=== PATIENT | female | born 1955 | race Caucasian/White ===

== ENCOUNTER → 2022-03-18 10:15 | Outpatient (CLI) | payer MEDICARE, OTHER, SELFPAY ==
--- NOTE | ~2022-03-18 | DEXA_ITS ---
Bone Density Report Name: MOUNIKA LONG Age: 66 Sex: Female Ethnicity: White Date of : 1955 Indication: osteopenia; height loss; hysterectomy; rheumatoid arthritis; postmenopausal Referring Provider: RICKEY, AYLIN Study: Bone densitometry was performed. Exam Date: March 18, 2022 Accession number: [id number] Bone Density: Region BMD T-score Z-score Classification AP Spine (L1-L4) 0.808 -2.2 -0.2 Osteopenia Femoral Neck (Left) 0.660 -1.7 0.0 Osteopenia Total Hip (Left) 0.805 -1.1 0.3 Osteopenia Femoral Neck (Right) 0.777 -0.7 1.1 Normal Total Hip (Right) 0.863 -0.6 0.8 Normal Total Hip Mean 0.834 -0.9 0.6 Normal World Health Organization criteria for BMD impression classify patients as: Normal (T-score at or above -1.0), Osteopenia (T-score between -1.0 and -2.5), or Osteoporosis (T-score at or below -2.5). 10-year Fracture Risk(1): Major Osteoporotic Fracture 12% Hip Fracture 1.7% Reported Risk Factors: [place] (), Neck BMD=0.660, BMI=38.7, rheumatoid arthritis (1) FRAX(R) Version 3.08. Fracture probability calculated for an untreated patient. Fracture probability may be lower if the patient has received treatment. Previous Exams: Region Exam Age BMD T-score BMD Change BMD Change Date g/cm2 vs Baseline vs Previous AP Spine(L1-L4) 03/18/2022 66 0.808 -2.2 -0.045* -0.045* 08/05/2017 62 0.852 -1.8 Total Hip(Left) 03/18/2022 66 0.805 -1.1 -0.027* -0.027* 08/05/2017 62 0.832 -0.9 Total Hip(Right) 03/18/2022 66 0.863 -0.6 0.033* 0.033* 08/05/2017 62 0.830 -0.9 *Denotes significance at 95% confidence level, LSC for AP Spine = 0.022 g/cm2, LSC for Total Hip = 0.027 g/cm2 Clinical Information Provided by Patient: Has rheumatoid arthritis Has used the following medications: Vitamin D, Calcium, MTV Has the following medical conditions: Hysterectomy Patient maximum height was 66.0 Menopause Age: 29 No regular weight bearing exercise Drinks caffeinated beverages Onset of menses at age 12 Number of children 2 Impression: The patient has low bone mass, based on the Total Spine T-score. The patient has an estimated ten-year risk of hip fracture of 1.7% and an estimated ten-year risk of major fracture of 12%, based on the WHO FRAX algorithm. The BMD for the AP Spine(L1-L4) decreased, changing by -0.045 since the last DXA exam. The BMD for the Total Hip(
== END ==
PROVIDERS: PCP Nurse Practitioner Adult Health; Visit Provider Physician Assistant Medical
DX: M85.88 Other specified disorders of bone density and structure, other site (principal); M85.852 Other specified disorders of bone density and structure, left thigh
CPT/HCPCS: 77080

== ENCOUNTER 2022-09-01 07:33 | Day surgery (SDC) | payer MEDICARE, OTHER, SELFPAY ==
[2022-08-24 11:41] VITALS: BMI 39.0
--- NOTE | 2022-09-01 07:25 | WPDHPUPDATE1 ---
History and Physical Update Update Date/Time: 09/01/22 07:25 History and Physical has been reviewed, including an updated exam of the patient. There are NO changes in the patient's condition. Risks, benefits, and alternatives have been discussed and questions answered. Patient agrees to proceed with procedure.
[2022-09-01 08:00] VITALS: BP 145/86; PULSE 67; RESP 20; TEMP 36.6; O2SAT 98
[2022-09-01] MEDS: OFLOXACIN 0.3% OPHTH SOLN 5 ML BTL 1 DROP AFFCTD EYE (08:00)
[2022-09-01] MEDS: TETRACAINE HCL 0.5% OPHTH SOLN 4 ML BTL 1 DROP AFFCTD EYE ×3 (08:00→08:10)
--- NOTE | 2022-09-01 08:24 | P.PNAN_ITS ---
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 Patient Data Age: 67 Gender: F Height: 1.65 m Weight: 106.5 kg Allergies Allergy/AdvReac Type Severity Reaction Status Date / Time Sulfa (Sulfonamide Allergy Unknown Hives Verified 08/24/22 11:36 Antibiotics) Home Medications Medication Instructions Recorded Confirmed Type fluoxetine 40 mg capsule 40 mg PO DAILY 08/24/22 08/24/22 History folic acid 1 mg tablet 1 mg PO DAILY 08/24/22 08/24/22 History omeprazole 20 mg capsule,delayed 20 mg PO DAILY 08/24/22 08/24/22 History release oxybutynin chloride 5 mg 5 mg PO DAILY 08/24/22 08/24/22 History tablet,extended release 24 hr simvastatin 20 mg tablet 20 mg PO DAILY 08/24/22 08/24/22 History Patient hx anesthesia problems: none Family hx anesthesia problems: none Results Review: All pre-operative results and documents have been reviewed as part of the pre- operative evaluation. [facility] Past Medical History Medical History (Updated 09/01/22 @ 08:25 by Asaf Howe MD) Chronic GERD Hyperlipidemia Obesity Social History Social History Smoking status: Never smoker Second hand tobacco smoke exposure: No Alcohol intake: current Substance use: never Substance use type: does not use Living arrangements: with family Spiritual care concerns: No Anes - Eval Final PreProcedure Day of Procedure 09/01/22 08:24 Patient weight: obese Heart: regular rate and rhythm Lungs: clear to auscultation and normal air movement Airway: Mallampati scale class II Neurological: alert and oriented Last oral intake: >/= 8 hours ASA classification: II Emergent: no Anesthetic plan: proceed Anesthesia type and monitoring: monitored anesthesia care Results Review: All pre-operative results and documents have been reviewed as part of the pre- operative evaluation. Informed Consent: The patient's anesthetic plan and its attendant risks and benefits were discussed with the patient/family/POA. Questions were solicited and answers provided to the satisfaction of the patient/family/POA.
[2022-09-01] MEDS: LIDOCAINE HCL 2% JELLY 5 ML TUBE 1 APPLIC AFFCTD EYE (08:39)
[2022-09-01] MEDS: LIDOCAINE HCL 1% PF INJ 5 ML VIAL 1 ML INTRAOCULA (08:51)
[2022-09-01] MEDS: NEOMYCIN/POLYMYXIN/DEXAMETH OP OINT 3.5 GM TUBE 1 APPLIC AFFCTD EYE (08:51)
[2022-09-01] MEDS: HOME MEDICATION 1 EACH AFFCTD EYE (08:52)
[2022-09-01 09:17] VITALS: BP 144/59; PULSE 68; RESP 16; O2SAT 100
--- NOTE | 2022-09-01 11:37 | W.PM.PROC2 ---
Procedure Note - Detailed Date of Procedure 09/01/22 Pre-op Diagnosis Age Related Nuclear Cataract Right Eye Post-op Diagnosis Same Procedure Performed Cataract Extraction (by Phacoemulsification) and lntraocular Lens Implant Surgeon Iker Agosto MD Anesthesia MAC Description of Procedure The eye was anesthetized with topical 0.75% bupivacaine. After intravenous sedation and placement of monitors, the patient was prepped and draped in the usual sterile manner. A lid speculum was placed. A paracentesis was made, and preservative free 1% lidocaine was instilled in the anterior chamber. The anterior chamber was then filled with Viscoat viscoelastic. A tyesha keratome was used to create the wound. Continuous tear anterior capsulotomy was performed. The lens was hydro dissected before being removed with phacoemulsification. The remaining lenticular cortex was removed with aspiration. The capsular bag was polished and filled with viscoelastic material. An intraocular lens was chosen, inspected, irrigated and placed within the capsular bag where it was seen to be centered and stable. The viscoelastic material was aspirated. The wound was closed and found to be watertight. Ciloxan drops were placed in the eye. The speculum was removed. A Ponce shield was applied. The patient tolerated the procedure well and left the operating room in satisfactory condition. Implants See chart Complications None Condition Stable Disposition Same day
--- NOTE | 2022-09-01 11:46 | WPDANESPN ---
Anes - Prog Note Post-Op Date/Time: 09/01/22 11:46 Cardiovascular status: normal Respiratory status: normal Airway patency: baseline Mental status: baseline Post-Op hydration status: normal Vital Signs: Last Vital Signs Temp 36.6 C 09/01/22 08:00 Pulse 68 09/01/22 09:17 Resp 16 09/01/22 09:17 BP 144/59 H 09/01/22 09:17 Pulse Ox 100 09/01/22 09:17 O2 Del Method Room Air 09/01/22 09:17 Pain Score (VAS): 0 Post-procedural complaints: none Patient Feedback: Patient satisfied with anesthetic care.
== END 2022-09-01 09:33 | disposition home or self-care (01) ==
PROVIDERS: PCP Family Medicine; Visit Provider Student in an Organized Health Care Education/Training Program
PROC: (CPT 66983; principal; 2022-09-01 08:30)
DX: H25.11 Age-related nuclear cataract, right eye (principal)
CPT/HCPCS: 66984; V2521; ATORIC

== ENCOUNTER 2024-04-11 01:27 | Day surgery (SDC) | payer MEDICARE, OTHER, SELFPAY ==
[2024-03-27 13:24] VITALS: BMI 38.1
[2024-04-11 07:48] VITALS: BP 137/57; PULSE 69; RESP 18; TEMP 36.1; O2SAT 99; BMI 38.4
[2024-04-11] MEDS: LACTATED RINGERS 1,000 ML 150 ML IV CONT (07:58)
--- NOTE | 2024-04-11 08:59 | PM.IMHP ---
H&P: HPI History of Present Illness Date/Time: 04/11/24 08:59 Chief Complaint: dysphgagia Narrative: this patient has a history of Argueta's esophagus and has been complaining of intermittent dysphagia for several years. Her last colonoscopy was over 5 years ago. She does not have problems with swallowing liquids. Review of Systems Review of Systems: All systems reviewed & are unremarkable except as noted in HPI and below PMFSH Past Medical History Medical History Chronic GERD Hyperlipidemia Obesity Social History Social History Smoking status: Never smoker Second hand tobacco smoke exposure: No Alcohol intake: current Substance use: never Substance use type: does not use Living arrangements: with family Spiritual care concerns: No Meds Home Medications and Allergies Home Medications Medication Instructions Recorded Confirmed Type folic acid 1 mg tablet 1 mg PO DAILY 08/24/22 04/11/24 History simvastatin 20 mg tablet 20 mg PO DAILY 08/24/22 04/11/24 History calcium carbonate 260 mg PO DAILY 03/21/24 04/11/24 History fluoxetine 40 mg capsule (Prozac) 20 mg PO TID 03/21/24 04/11/24 History golimumab 12.5 mg/mL intravenous See Rx Instructions .Route .COMPLEX 03/21/24 04/11/24 History solution (Simponi ARIA) lactobacillus combination no.9 4 4,000 mmu cells PO DAILY 03/21/24 04/11/24 History billion cell capsule (Adult 50 Plus Probiotic) multivitamin 1 tablet PO DAILY 03/21/24 04/11/24 History omeprazole 20 mg capsule,delayed 40 mg PO DAILY 03/21/24 04/11/24 History release Allergies Allergy/AdvReac Type Severity Reaction Status Date / Time Sulfa (Sulfonamide Allergy Unknown Hives Verified 04/11/24 07:48 Antibiotics) diphenhydramine Allergy Hives Verified 04/11/24 07:48 [From Benadryl] Vital Signs Vital Signs - 24 hr 04/11/24 07:48 Temperature 97 F L Pulse Rate 69 Respiratory Rate 18 Blood Pressure 137/57 L Pulse Oximetry 99 Oxygen Delivery Room Air Assessment and Plan Assessment and plan (1) Dysphagia: Qualifiers: Dysphagia type: esophageal phase Qualified Code(s): R13.19 - Other dysphagia Code(s): R13.10 - Dysphagia, unspecified Status: Acute Plan Patient with a possible history of Argueta's esophagus and intermittent dysphagia. Schatki's ring is a diagnostic consideration. Will proceed with EGD and possible dilatation if a ring is found.
--- NOTE | 2024-04-11 09:02 | WPDANESEPPF ---
Anes - Initial Pre Proc Eval Procedure: Operation Date: 04/11/24 09:00 Proposed Procedures p Esophagogastroduodenoscopy - Edwin Limon MD Date/Time: 04/11/24 09:02 Surgeon: Edwin Limon MD Pre Op Diagnosis: Dysphagia, GERD Patient Data Age: 68 Gender: F Height: 1.65 m Weight: 104.8 kg Last Vital Signs Temp 97 F L 04/11/24 07:48 Pulse 69 04/11/24 07:48 Resp 18 04/11/24 07:48 BP 137/57 L 04/11/24 07:48 Pulse Ox 99 04/11/24 07:48 O2 Del Method Room Air 04/11/24 07:48 Allergies Allergy/AdvReac Type Severity Reaction Status Date / Time Sulfa (Sulfonamide Allergy Unknown Hives Verified 04/11/24 07:48 Antibiotics) diphenhydramine Allergy Hives Verified 04/11/24 07:48 [From Benadryl] Home Medications Medication Instructions Recorded Confirmed Type folic acid 1 mg tablet 1 mg PO DAILY 08/24/22 04/11/24 History simvastatin 20 mg tablet 20 mg PO DAILY 08/24/22 04/11/24 History calcium carbonate 260 mg PO DAILY 03/21/24 04/11/24 History fluoxetine 40 mg capsule (Prozac) 20 mg PO TID 03/21/24 04/11/24 History golimumab 12.5 mg/mL intravenous See Rx Instructions .Route .COMPLEX 03/21/24 04/11/24 History solution (Simponi ARIA) lactobacillus combination no.9 4 4,000 mmu cells PO DAILY 03/21/24 04/11/24 History billion cell capsule (Adult 50 Plus Probiotic) multivitamin 1 tablet PO DAILY 03/21/24 04/11/24 History omeprazole 20 mg capsule,delayed 40 mg PO DAILY 03/21/24 04/11/24 History release Patient hx anesthesia problems: none Family hx anesthesia problems: none Results Review: All pre-operative results and documents have been reviewed as part of the pre-operative evaluation. [facility] Past Medical History Medical History Chronic GERD Hyperlipidemia Obesity Social History Social History Smoking status: Never smoker Second hand tobacco smoke exposure: No Alcohol intake: current Substance use: never Substance use type: does not use Living arrangements: with family Spiritual care concerns: No Anes - Eval Final PreProcedure Day of Procedure 04/11/24 09:02 Patient weight: obese Heart: regular rate and rhythm Lungs: clear to auscultation Airway: Mallampati scale class II Neurological: alert and oriented Last oral intake: >/= 8 hours ASA classification: III Emergent: no Anesthetic plan: proceed Anesthesia type and monitoring: general GIVS and standard monitoring Results Review: All pre-operative results and documents have been reviewed as part of the pre-operative evaluation. Informed Consent: The patient's anesthetic plan and its attendant risks and benefits were discussed with the patient/family/POA. Questions were solicited and answers provided to the satisfaction of the patient/family/POA.
[2024-04-11] MEDS: SIMETHICONE ORAL SUSPENSION 20 MG/0.3 ML 30 ML BOTTLE 0.6 ML IRRIGATION (09:15)
[2024-04-11 09:26] VITALS: BP 132/78; PULSE 63; RESP 16; O2SAT 99
[2024-04-11 09:36] VITALS: BP 130/72; PULSE 61; RESP 18; O2SAT 99
[2024-04-11 09:44] VITALS: BP 120/62; PULSE 61; RESP 18; O2SAT 100
[2024-04-11 09:49] VITALS: BP 125/75; PULSE 57; RESP 19; O2SAT 100
== END 2024-04-11 09:56 | disposition home or self-care (01) ==
PROVIDERS: PCP Physician Assistant; Referring Provider Nurse Practitioner; Visit Provider Internal Medicine Gastroenterology
PROC: 0DJ08ZZ Inspection of Upper Intestinal Tract, Via Natural or Artificial Opening Endoscopic (ICD-10-PCS; CPT 43235; principal; 2024-04-11 09:00)
DX: K21.00 Gastro-esophageal reflux disease with esophagitis, without bleeding (principal); K29.50 Unspecified chronic gastritis without bleeding; E78.5 Hyperlipidemia, unspecified; E66.9 Obesity, unspecified; Z68.38 Body mass index [BMI] 38.0-38.9, adult
CPT/HCPCS: 43239; 88305; J2003; J2704; J7120

== ENCOUNTER 2024-09-17 12:30 | Emergency (ER) | payer MEDICARE, OTHER, SELFPAY ==
--- NOTE | ~2024-09-17 | CT_ITS ---
EXAMINATION: CT abdomen pelvis w con DATE: 09/17/2024 14:54 INDICATION: Abdominal pain TECHNIQUE: Computed tomography (CT) of the abdomen and pelvis was performed with 100 mL Omnipaque-350 intravenous contrast. Automated exposure control and iterative reconstruction technique were employe d. The dose-length product was 905.17 mGy-cm. COMPARISON: None FINDINGS: Mild atelectasis at the periphery of the bilateral lower lungs. Heart size is normal. Aortic valve ca lcification. No pericardial or pleural effusion. Small sliding-type hiatal hernia. Multiple splenic c alcification consistent with old granulomatous disease. Cholecystectomy clips the gallbladder fossa. Liver, pancreas and bilateral adrenal glands are normal. Multiple bilateral renal parenchymal and par apelvic cysts measuring up to 2.5 cm. Bladder is normal. The uterus is not identified and has likely been surgically resected. There is mild colonic diverticulosis with a sigmoid predominance. There is no adjacent inflammatory change to suggest diverticulitis. Small bowel and appendix are normal. No f ree intraperitoneal gas or fluid. No pathologically enlarged abdominal or pelvic lymphadenopathy. Mi ld to moderate lumbar spondylosis. IMPRESSION: 1. No acute intra-abdominal/pelvic process. 2. Small sliding-type hiatal hernia. 3. Mild diverticulosis. Reviewed, dictated and finalized at location B.
--- NOTE | ~2024-09-17 | XR_ITS ---
EXAMINATION: XR chest 2V Exam Date/Time: 09/17/2024 14:59 CDT HISTORY: upper abdominal pain Comparison: 02/18/2018. RESULT: Lines, tubes, and devices: Cholecystectomy clips. Lungs and pleura: Clear. Cardiomediastinal silhouette: Stable. Other: No acute osseous or upper abdominal finding. IMPRESSION: No acute cardiopulmonary process. Reviewed, dictated and finalized at location K.
--- NOTE | 2024-09-17 12:33 | ECG_ITS ---
Test Date: 2024-09-17 12:56:39 Measurements Intervals [place] Rate: 76 P: 17 ME: 146 QRS: 17 QRSD: 107 T: 34 QT: 379 QTc: 428 Interpretive Statements SINUS RHYTHM No previous ECG available for comparison Electronically Signed On 09-18-2024 15:32:01 CDT by Eliza Wilkerson M.D.
--- NOTE | 2024-09-17 12:35 | ED.ABDPAIN ---
HPI - Abdominal Pain General Chief Complaint: Abdominal Pain <Melissa Emery APRN - Last Filed: 09/17/24 12:36> Stated Complaint: abdominal pain <Melissa Emery APRN - Last Filed: 09/17/24 12:36> Time Seen by Provider: 09/17/24 12:30 <Melissa Emery APRN - Last Filed: 09/17/24 12:36> Focused HPI: Patient is a 69-year-old female who presents to the ER with left upper quadrant pain that radiates across her abdomen. Patient reports the pain started yesterday. She also endorses nausea and vomiting. Patient denies shortness of breath, chest pain, back pain, urinary symptoms. She reports her only history is rheumatoid arthritis. GENERAL: Well-appearing, well-nourished, and in no acute distress. HEAD: Normocephalic, atraumatic. CHEST: Clear to auscultation. ?No respiratory distress. HEART: Regular rate and rhythm.? NEURO: ?Alert and oriented x3. Patient screened in triage and initial orders placed.? ?Additional care and disposition to be based upon?diagnostic testing and treatment. <Melissa Emery APRN - Last Filed: 09/17/24 12:36> History of Present Illness HPI narrative: I agree with the above HPI 69-year-old female presents emergency department for evaluation for left upper quadrant abdominal pain. A history of GERD does take omeprazole. Patient is also on methotrexate for rheumatoid arthritis. <Art Martinez MD - Last Filed: 09/17/24 21:27> Related Data Home Medications: Home Medications ?Medication ?Instructions ?Recorded ?Confirmed ?Last Taken ?Type folic acid 1 mg tablet 1 mg PO DAILY 08/24/22 04/11/24 1 Day Ago History ~04/10/24 simvastatin 20 mg tablet 20 mg PO DAILY 08/24/22 04/11/24 1 Day Ago History ~04/10/24 calcium carbonate 260 mg PO DAILY 03/21/24 04/11/24 1 Day Ago History ~04/10/24 fluoxetine 40 mg capsule (Prozac) 20 mg PO TID 03/21/24 04/11/24 1 Day Ago History ~04/10/24 golimumab 12.5 mg/mL intravenous See Rx Instructions .Route .COMPLEX 03/21/24 04/11/24 1 Day Ago History solution (Simponi ARIA) ~04/10/24 lactobacillus combination no.9 4 4,000 mmu cells PO DAILY 03/21/24 04/11/24 1 Day Ago History billion cell capsule (Adult 50 ~04/10/24 Plus Probiotic) multivitamin 1 tablet PO DAILY 03/21/24 04/11/24 1 Day Ago History ~04/10/24 omeprazole 20 mg capsule,delayed 40 mg PO DAILY 03/21/24 04/11/24 1 Day Ago History release ~04/10/24 <Melissa Emery APRN - Last Filed: 09/17/24 12:36> Allergies/Adverse Reactions: Allergies Allergy/AdvReac Type Severity Reaction Status Date / Time Sulfa (Sulfonamide Allergy Unknown Hives Verified 09/17/24 12:54 Antibiotics) diphenhydramine (From Allergy Hives Verified 09/17/24 12:54 Benadryl) <eMlissa Emery APRN - Last Filed: 09/17/24 12:36> Review of Systems Review of Systems: All systems reviewed & are unremarkable except as noted in HPI and below <Art Martinez MD - Last Filed: 09/17/24 21:27> PMFSH Past Medical History Medical History: Medical History Chronic GERD Hyperlipidemia Obesity <Melissa Emery APRN - Last Filed: 09/17/24 12:36> Social History Social History: Social History Smoking status: Never smoker Second hand tobacco smoke exposure: No Alcohol intake: current Substance use: never Substance use type: does not use Living arrangements: with family Spiritual care concerns: No <Melissa Emery APRN - Last Filed: 09/17/24 12:36> Exam Narrative: APPEARANCE: Well appearing, no pain, no distress, well-nourished. HEAD: normocephalic, atraumatic. EYES: PERRLA/EOMI, conjunctivae clear. NOSE: Normal no drainage EARS:TMS clear with good light reflex. THROAT: Pharynx clear, no exudate. NECK: Supple. No adenopathy, no masses. RESPIRATORY: Airway patent, respirations nonlabored. Clear to auscultation bilaterally, no rales, rhonchi, wheezing. CARDIOVASCULAR: Regular rate and rhythm without murmurs rubs or gallops. ABDOMINAL: Soft, nontender, nondistended, normal bowel sounds MUSCULOSKELETAL: Moves all extremities. Strength/ROM intact, No edema, No calf tenderness. NEURO: Alert. Cranial nerves II through XII intact. Good gait. Good coordination SKIN: Warm, dry. Normal Color <Art Martinez MD - Last Filed: 09/17/24 21:27> Course Vital Signs Vital signs: Vital Signs Temperature 97.8 F 09/17/24 12:38 Pulse Rate 89 09/17/24 12:38 Respiratory Rate 16 09/17/24 12:38 Blood Pressure 135/68 09/17/24 12:38 Pulse Oximetry 98 09/17/24 12:38 Oxygen Delivery Room Air 09/17/24 12:38 Temperature 97.8 F 09/17/24 12:38 Pulse Rate 84 09/17/24 18:09 Respiratory Rate 16 09/17/24 18:09 Blood Pressure 134/60 09/17/24 18:09 Pulse Oximetry 98 09/17/24 18:09 Oxygen Delivery Room Air 09/17/24 12:38 <Melissa Emery APRN - Last Filed: 09/17/24 12:36> Vital Signs Temperature 97.8 F 09/17/24 12:38 Pulse Rate 89 09/17/24 12:38 Respiratory Rate 16 09/17/24 12:38 Blood Pressure 135/68 09/17/24 12:38 Pulse Oximetry 98 09/17/24 12:38 Oxygen Delivery Room Air 09/17/24 12:38 Temperature 97.8 F 09/17/24 12:38 Pulse Rate 84 09/17/24 18:09 Respiratory Rate 16 09/17/24 18:09 Blood Pressure 134/60 09/17/24 18:09 Pulse Oximetry 98 09/17/24 18:09 Oxygen Delivery Room Air 09/17/24 12:38 <Art Martinez MD - Last Filed: 09/17/24 21:27> MDM - Abdominal Pain MDM Narrative Medical decision making narrative: 69-year-old female presents emergency department for evaluation for left upper quadrant abdominal pain. Patient is currently afebrile but does have a leukocytosis of 14.5 a hemoglobin of 13.7. Patient has an INR of 1.0. Patient does have leukocyte esterase positive urine with some red blood cells and some white blood cells, patient denies any pain with urination. Chest x-ray showed no acute cardiopulmonary abnormality. Abdominal CT showed no acute intracranial abdominal pelvic process. Sliding type hiatal hernia and some mild diverticulosis. Patient was treated with famotidine, Protonix and a GI cocktail. On re-evaluation patient states she does feel improved. <Art Martinez MD - Last Filed: 09/17/24 21:27> Differential Diagnosis Differential diagnosis: Likely abdominal pain, acute appendicitis, constipation, diverticulitis, gastroenteritis and small bowel obstruction <Art Martinez MD - Last Filed: 09/17/24 21:27> Lab Data Attestation: I reviewed the patient's lab results. <Art Martinez MD - Last Filed: 09/17/24 21:27> Result diagrams: 09/17/24 13:18 09/17/24 16:03 <Melissa Emery APRN - Last Filed: 09/17/24 12:36> Labs: Lab Results 09/17/24 09/17/24 09/17/24 Range/Units 13:18 13:26 14:36 WBC 14.5 H (4.5-10.0) K/mm3 RBC 4.21 (4.2-5.4) M/mm3 Hgb 13.7 (12.0-15.0) g/dL Hct 40.8 (37.0-47.0) % MCV 96.9 (80-100) fl MCH 32.5 (26-34) pg MCHC 33.6 (32-36) g/dl RDW 13.0 (11.5-14.5) % Plt Count 174 (150-375) k/mm3 MPV 10.6 H (7.4-10.4) fl Immature Gran % (Auto) 0.3 (0-0.5) % Neut % (Auto) 78.1 H (45.5-73.1) % Lymph % (Auto) 12.2 L (18.3-44.2) % [place] % (Auto) 8.6 H (2.6-8.5) % Eos % (Auto) 0.5 (0-4.4) % Baso % (Auto) 0.3 (0.2-1.2) % Lymph # (Auto) 1.76 (0.9-3.2) K/mm3 [place] # (Auto) 1.2 H (0.1-0.6) K/mm3 Eos # (Auto) 0.1 (0-0.3) K/mm3 Baso # (Auto) 0.1 (0.0-0.1) K/mm3 Abs Immat Gran (auto) 0.05 H (0.00-0.031) K/mm3 Absolute Neuts (auto) 11.3 H (1.3-6.7) K/mm3 Absolute Nucleated RBC 0.000 (0.0-0.012) K/mm3 Nucleated RBC % 0.0 (0.0-0.2) % PT 13.2 (11.1-14.7) Seconds INR 1.0 APTT 23.9 (22.3-36.8) Seconds Sodium (137-145) mmol/L Potassium (3.4-5.0) mmol/L Chloride (98-107) mmol/L Carbon Dioxide (22-30) mmol/L Anion Gap (4-12) mmol/L BUN (7-17) mg/dL Creatinine 0.70 (0.7-1.2) mg/dL Estim Creat Clear Calc 74 ml/min Estimated GFR > 60 (59 - ) Glucose (65-110) mg/dL Lactic Acid (0.7-2.0) mmol/L Calcium (8.4-10.2) mg/dL Total Bilirubin (0.2-1.3) mg/dL AST (14-36) U/L ALT (6-35) U/L Alkaline Phosphatase (38-126) U/L Troponin I (0.000-0.034) ng/mL Total Protein (6.3-8.2) g/dL Albumin (3.5-5.1) g/dL Lipase (23-300) U/L Urine Color Dark yellow (Yellow) Urine Appearance Clear (Clear) Urine pH 5.5 (5.0-9.0) Ur Specific [place] 1.025 (1.001-1.035) Urine Protein Trace (Negative) mg/dL Urine Glucose (UA) Negative (Negative) mg/dL Urine Ketones Trace H (Negative) mg/dL Ur Blood (Man) 1+ H (Negative) Urine Nitrate Negative (Negative) Urine Bilirubin Negative (Negative) Urine Urobilinogen 1.0 (<2.0) mg/dL Leukocyte Esterase Rfl 1+ H (Negative) ROGER/UL Urine RBC 11-20 H (0-2) /hpf Urine WBC 11-20 H (0-3) /hpf Ur Squamous Epith Cells Occasional (Few) /hpf Urine Bacteria None seen /hpf Urine Casts 0-2 09/17/24 09/17/24 Range/Units 16:03 16:04 WBC (4.5-10.0) K/mm3 RBC (4.2-5.4) M/mm3 Hgb (12.0-15.0) g/dL Hct (37.0-47.0) % MCV (80-100) fl MCH (26-34) pg MCHC (32-36) g/dl RDW (11.5-14.5) % Plt Count (150-375) k/mm3 MPV (7.4-10.4) fl Immature Gran % (Auto) (0-0.5) % Neut % (Auto) (45.5-73.1) % Lymph % (Auto) (18.3-44.2) % [place] % (Auto) (2.6-8.5) % Eos % (Auto) (0-4.4) % Baso % (Auto) (0.2-1.2) % Lymph # (Auto) (0.9-3.2) K/mm3 [place] # (Auto) (0.1-0.6) K/mm3 Eos # (Auto) (0-0.3) K/mm3 Baso # (Auto) (0.0-0.1) K/mm3 Abs Immat Gran (auto) (0.00-0.031) K/mm3 Absolute Neuts (auto) (1.3-6.7) K/mm3 Absolute Nucleated RBC (0.0-0.012) K/mm3 Nucleated RBC % (0.0-0.2) % PT (11.1-14.7) Seconds INR APTT (22.3-36.8) Seconds Sodium 135 L (137-145) mmol/L Potassium 4.1 (3.4-5.0) mmol/L Chloride 102 (98-107) mmol/L Carbon Dioxide 27 (22-30) mmol/L Anion Gap 6 (4-12) mmol/L BUN 9 (7-17) mg/dL Creatinine 0.57 L (0.7-1.2) mg/dL Estim Creat Clear Calc 90 ml/min Estimated GFR > 60 (59 - ) Glucose 105 (65-110) mg/dL Lactic Acid 1.3 (0.7-2.0) mmol/L Calcium 9.4 (8.4-10.2) mg/dL Total Bilirubin 1.9 H (0.2-1.3) mg/dL AST 24 (14-36) U/L ALT 21 (6-35) U/L Alkaline Phosphatase 90 (38-126) U/L Troponin I < 0.012 (0.000-0.034) ng/mL Total Protein 8.0 (6.3-8.2) g/dL Albumin 4.2 (3.5-5.1) g/dL Lipase 41 (23-300) U/L Urine Color (Yellow) Urine Appearance (Clear) Urine pH (5.0-9.0) Ur Specific [place] (1.001-1.035) Urine Protein (Negative) mg/dL Urine Glucose (UA) (Negative) mg/dL Urine Ketones (Negative) mg/dL Ur Blood (Man) (Negative) Urine Nitrate (Negative) Urine Bilirubin (Negative) Urine Urobilinogen (<2.0) mg/dL Leukocyte Esterase Rfl (Negative) ROGER/UL Urine RBC (0-2) /hpf Urine WBC (0-3) /hpf Ur Squamous Epith Cells (Few) /hpf Urine Bacteria /hpf Urine Casts <Melissa Emery, LABORATORY CHEMICAL ASSISTANT - Last Filed: 09/17/24 12:36> Lab Results 09/17/24 09/17/24 09/17/24 Range/Units 13:18 13:26 14:36 WBC 14.5 H (4.5-10.0) K/mm3 RBC 4.21 (4.2-5.4) M/mm3 Hgb 13.7 (12.0-15.0) g/dL Hct 40.8 (37.0-47.0) % MCV 96.9 (80-100) fl MCH 32.5 (26-34) pg MCHC 33.6 (32-36) g/dl RDW 13.0 (11.5-14.5) % Plt Count 174 (150-375) k/mm3 MPV 10.6 H (7.4-10.4) fl Immature Gran % (Auto) 0.3 (0-0.5) % Neut % (Auto) 78.1 H (45.5-73.1) % Lymph % (Auto) 12.2 L (18.3-44.2) % [place] % (Auto) 8.6 H (2.6-8.5) % Eos % (Auto) 0.5 (0-4.4) % Baso % (Auto) 0.3 (0.2-1.2) % Lymph # (Auto) 1.76 (0.9-3.2) K/mm3 [place] # (Auto) 1.2 H (0.1-0.6) K/mm3 Eos # (Auto) 0.1 (0-0.3) K/mm3 Baso # (Auto) 0.1 (0.0-0.1) K/mm3 Abs Immat Gran (auto) 0.05 H (0.00-0.031) K/mm3 Absolute Neuts (auto) 11.3 H (1.3-6.7) K/mm3 Absolute Nucleated RBC 0.000 (0.0-0.012) K/mm3 Nucleated RBC % 0.0 (0.0-0.2) % PT 13.2 (11.1-14.7) Seconds INR 1.0 APTT 23.9 (22.3-36.8) Seconds Sodium (137-145) mmol/L Potassium (3.4-5.0) mmol/L Chloride (98-107) mmol/L Carbon Dioxide (22-30) mmol/L Anion Gap (4-12) mmol/L BUN (7-17) mg/dL Creatinine 0.70 (0.7-1.2) mg/dL Estim Creat Clear Calc 74 ml/min Estimated GFR > 60 (59 - ) Glucose (65-110) mg/dL Lactic Acid (0.7-2.0) mmol/L Calcium (8.4-10.2) mg/dL Total Bilirubin (0.2-1.3) mg/dL AST (14-36) U/L ALT (6-35) U/L Alkaline Phosphatase (38-126) U/L Troponin I (0.000-0.034) ng/mL Total Protein (6.3-8.2) g/dL Albumin (3.5-5.1) g/dL Lipase (23-300) U/L Urine Color Dark yellow (Yellow) Urine Appearance Clear (Clear) Urine pH 5.5 (5.0-9.0) Ur Specific [place] 1.025 (1.001-1.035) Urine Protein Trace (Negative) mg/dL Urine Glucose (UA) Negative (Negative) mg/dL Urine Ketones Trace H (Negative) mg/dL Ur Blood (Man) 1+ H (Negative) Urine Nitrate Negative (Negative) Urine Bilirubin Negative (Negative) Urine Urobilinogen 1.0 (<2.0) mg/dL Leukocyte Esterase Rfl 1+ H (Negative) ROGER/UL Urine RBC 11-20 H (0-2) /hpf Urine WBC 11-20 H (0-3) /hpf Ur Squamous Epith Cells Occasional (Few) /hpf Urine Bacteria None seen /hpf Urine Casts 0-2 03/24/25 03/24/25 Range/Units 16:03 16:04 WBC (4.5-10.0) K/mm3 RBC (4.2-5.4) M/mm3 Hgb (12.0-15.0) g/dL Hct (37.0-47.0) % MCV (80-100) fl MCH (26-34) pg MCHC (32-36) g/dl RDW (11.5-14.5) % Plt Count (150-375) k/mm3 MPV (7.4-10.4) fl Immature Gran % (Auto) (0-0.5) % Neut % (Auto) (45.5-73.1) % Lymph % (Auto) (18.3-44.2) % [place] % (Auto) (2.6-8.5) % Eos % (Auto) (0-4.4) % Baso % (Auto) (0.2-1.2) % Lymph # (Auto) (0.9-3.2) K/mm3 [place] # (Auto) (0.1-0.6) K/mm3 Eos # (Auto) (0-0.3) K/mm3 Baso # (Auto) (0.0-0.1) K/mm3 Abs Immat Gran (auto) (0.00-0.031) K/mm3 Absolute Neuts (auto) (1.3-6.7) K/mm3 Absolute Nucleated RBC (0.0-0.012) K/mm3 Nucleated RBC % (0.0-0.2) % PT (11.1-14.7) Seconds INR APTT (22.3-36.8) Seconds Sodium 135 L (137-145) mmol/L Potassium 4.1 (3.4-5.0) mmol/L Chloride 102 (98-107) mmol/L Carbon Dioxide 27 (22-30) mmol/L Anion Gap 6 (4-12) mmol/L BUN 9 (7-17) mg/dL Creatinine 0.57 L (0.7-1.2) mg/dL Estim Creat Clear Calc 90 ml/min Estimated GFR > 60 (59 - ) Glucose 105 (65-110) mg/dL Lactic Acid 1.3 (0.7-2.0) mmol/L Calcium 9.4 (8.4-10.2) mg/dL Total Bilirubin 1.9 H (0.2-1.3) mg/dL AST 24 (14-36) U/L ALT 21 (6-35) U/L Alkaline Phosphatase 90 (38-126) U/L Troponin I < 0.012 (0.000-0.034) ng/mL Total Protein 8.0 (6.3-8.2) g/dL Albumin 4.2 (3.5-5.1) g/dL Lipase 41 (23-300) U/L Urine Color (Yellow) Urine Appearance (Clear) Urine pH (5.0-9.0) Ur Specific [place] (1.001-1.035) Urine Protein (Negative) mg/dL Urine Glucose (UA) (Negative) mg/dL Urine Ketones (Negative) mg/dL Ur Blood (Man) (Negative) Urine Nitrate (Negative) Urine Bilirubin (Negative) Urine Urobilinogen (<2.0) mg/dL Leukocyte Esterase Rfl (Negative) ROGER/UL Urine RBC (0-2) /hpf Urine WBC (0-3) /hpf Ur Squamous Epith Cells (Few) /hpf Urine Bacteria /hpf Urine Casts <Art Martinez MD - Last Filed: 09/17/24 21:27> Imaging Data Radiologist's impression: ITS Impressions Abdomen/Pelvis CT 09/17/24 14:58 IMPRESSION: 1. No acute intra-abdominal/pelvic process. 2. Small sliding-type hiatal hernia. 3. Mild diverticulosis. Chest X-Ray 09/17/24 15:13 IMPRESSION: No acute cardiopulmonary process. <Melissa Emery APRN - Last Filed: 09/17/24 12:36> ITS Impressions Abdomen/Pelvis CT 09/17/24 14:58 IMPRESSION: 1. No acute intra-abdominal/pelvic process. 2. Small sliding-type hiatal hernia. 3. Mild diverticulosis. Chest X-Ray 09/17/24 15:13 IMPRESSION: No acute cardiopulmonary process. <Art Martinez MD - Last Filed: 09/17/24 21:27> Discharge Plan Discharge Clinical Impression: Acute upper abdominal pain <Melissa Emery APRN - Last Filed: 09/17/24 12:36> Patient Disposition: Home, Self-Care <Melissa Emery APRN - Last Filed: 09/17/24 12:36> Condition: Stable <Melissa Emery APRN - Last Filed: 09/17/24 12:36> Instructions: Antibiotic Form, Gastritis (DC), Diet for Stomach Ulcers and Gastritis (ED) <Melissa Emery APRN - Last Filed: 09/17/24 12:36> Additional Instructions: Stop taking the omeprazole for 4 weeks and switch to pantoprazole. Follow a bland diet. Continue to avoid alcohol and NSAIDs. Have close follow-up with GI. If you have any worsening symptoms then please call or return to the emergency department. <Melissa Emery APRN - Last Filed: 09/17/24 12:36> Patient Language: Setswana <Melissa Emery APRN - Last Filed: 09/17/24 12:36> Prescriptions: New pantoprazole 40 mg tablet,delayed release (DR/EC) 40 mg PO HS 28 Days Qty: 28 0RF Held omeprazole 20 mg capsule,delayed release(DR/EC) 40 mg PO DAILY Hold Instructions: Resume on 10/08/24. No Action calcium carbonate 260 mg calcium (648 mg) tablet 260 mg PO DAILY Simponi ARIA 12.5 mg/mL solution See Rx Instructions .ROUTE .COMPLEX Rx Instructions: 12.5 intravenously every 8 weeks multivitamin Tablet 1 tablet PO DAILY Adult 50 Plus Probiotic 4 billion cell capsule 4,000 mmu cells PO DAILY Rx Instructions: administer with a meal simvastatin 20 mg tablet 20 mg PO DAILY folic acid 1 mg tablet 1 mg PO DAILY fluoxetine [Prozac] 40 mg capsule 20 mg PO TID <Melissa Emery, WINNIE - Last Filed: 09/17/24 12:36> Follow-up/Referrals: Valentino,DEONNA Novak [Primary Care Provider] - Edwin Limon MD [Physician] - <Melissa Emery, WINNIE - Last Filed: 09/17/24 12:36>
[2024-09-17 12:38] VITALS: BP 135/68; PULSE 89; RESP 16; TEMP 36.6; O2SAT 98
[2024-09-17] MEDS: ONDANSETRON HCL ODT 4 MG TABLET PO (12:53)
[2024-09-17 13:23] LABS: Basophils Absolute Auto 0.1 K/mm3 (0.0-0.1); Basophils Percent Auto 0.3 % (0.2-1.2); Eosinophils Absolute Auto 0.1 K/mm3 (0-0.3); Eosinophils Percent Auto 0.5 % (0-4.4); Hematocrit 40.8 % (37.0-47.0); Hemoglobin 13.7 g/dL (12.0-15.0); Immature Granulocyte Absolute 0.05 K/mm3 (0.00-0.031); Immature Granulocyte Percent A 0.3 % (0-0.5); Lymphocytes Absolute Auto 1.76 K/mm3 (0.9-3.2); Lymphocytes Percent Auto 12.2 % (18.3-44.2); Mean Corpuscular HGB Conc 33.6 g/dl (32-36); Mean Corpuscular Hemoglobin 32.5 pg (26-34); Mean Corpuscular Volume 96.9 fl (80-100); Mean Platelet Volume 10.6 fl (7.4-10.4); Monocytes Absolute Auto 1.2 K/mm3 (0.1-0.6); Monocytes Percent Auto 8.6 % (2.6-8.5); Neutrophils Absolute Auto 11.3 K/mm3 (1.3-6.7); Neutrophils Percent Auto 78.1 % (45.5-73.1); Platelet Count Result 174 k/mm3 (150-375); Red Blood Count 4.21 M/mm3 (4.2-5.4); White Blood Count 14.5 K/mm3 (4.5-10.0)
[2024-09-17 13:37] LABS: Prothrombin Time 13.2 Seconds (11.1-14.7)
[2024-09-17 13:37] LABS: Add Urine Microscopic? YES; Appearance Urine Clear (Clear); Bacteria Urine None Seen /hpf; Bilirubin Urine Negative (Negative); Blood Urine 1+ (Negative); Color Urine Dark Yellow (Yellow); Glucose Urine UA Negative (Negative); Ketones Urine Trace mg/dL (Negative); Leukocyte Esterase Ur 1+ LEU/UL (Negative); Nitrate Urine Negative (Negative); Non Pathogenic Casts 0-2; Protein Urine Trace mg/dL (Negative); Specific Grav Ur 1.025 (1.001-1.035); Squamous Epithelial Cell Urine Occasional /hpf (Few); pH Urine 5.5 (5.0-9.0)
[2024-09-17 13:38] LABS: Partial Thromboplastin Time 23.9 Seconds (22.3-36.8)
--- OUTSIDE RECORDS SUMMARY | 2024-09-17 14:08 | XMS_ITS | Encounter Summary ---
Author Organization [facility] Address [address] [place] [address] Care Team Providers Care Traveling Secretary Name Role Phone Mimi Verma MD Primary Care Provider [phone] Encounter Details Date Type Department Care Team (Late st Contact Info) Description 08/10/2006 Inpatient Historical [facility] Jay Glover MD [address] [place] [address] Ayo Steele MD [address] [place] [address] Other Wrist Sprain and Strain (Primary Dx) Social History Tobacco Use Types Packs/Day Years Used Date Smoking Tobacco: Never Assessed Comments Unknown Sex and Gender Information Value Date Recorded Sex Assigned at Not on file Legal Sex Female 5:25 AM [employer] Gender Identity Not on file Sexual Orientation Not on file documented as of this encounter Plan of Treatment Not on file documented as of this encounter Visit Diagnoses Diagnosis Other wrist sprain and strain- Primary documented in this encounter Care Teams Traveling Secretary Relationship Specialty Start Date End Date Mimi Vemra MD [address] [place] [address] PCP - General 06/13/15 documented as of this encounter
--- OUTSIDE RECORDS SUMMARY | 2024-09-17 14:09 | XMS_ITS | Referral Summary ---
Author Organization [facility] [address] Address [address] [place] [address] Phone Care Team Providers Care Grinder Machine Setter Name Role Phone Allen Carrasco MD Unavailable [phone] Tello Avelar Primary Care Provider + Encounters Date Type Department Care Team Description 07/26/2024 Orders Only [facility] [address] [place] [phone] Ange Dempsey PA Osteopenia of multiple sites (Primary Dx) 07/26/2024 Telephone [facility] [address] [place] [phone] Nanette Bocanegra 07/19/2024 10:30 AM PIG CASTING MACHINE OPERATOR Office Visit [facility] [address] [place] [phone] Ange Dempsey PA Seropositive rheumatoid arthritis of multiple sites (HCC) (Primary Dx); High risk medications (not anticoagulants) long-term use; Osteopenia of multiple sites from Last 3 Months Allergies Active Allergy Reactions Criticality Noted Date Comments Diphenhydramine Hcl Hives High 10/20/2018 Reaction: hives, , 10/20/18 pt denies allergy to diphenhydramine. Sulfa (Sulfonamide Antibiotics) Hives High Reaction: hives, , Sulfanilamide Medications multivit-minera ls-ferrous fum (MULTI VITAMIN) 9 mg iron/15 mL liquid take 1 by Oral route every day 0 0 03/19/2013 Active omega 0-qoc-lsx-fish oil (FISH OIL) 100-160-1,000 mg capsule take 1 Capsule by Oral route every day 0 0 03/19/2013 Active psyllium (METAMUCIL) 0.52 gram capsule 0 0 10/22/2016 Active calcium carbonate-vitam in D3 (CALCIUM 600 + D,3,) 1500 mg (600 mg elemental) -400 units per tablet take one tab by mouth BID 60 0 01/19/2012 Active multivitamin tablet tablet take 1 tablet by oral route every day with food 30 0 01/19/2012 Active cholecalciferol (VITAMIN D3) 2,000 unit capsule take 1 Capsule by Oral route every day 30 0 01/21/2012 Active simvastatin (ZOCOR) 20 mg tablet Take 20 mg by mouth nightly. Active FLUoxetine (PROzac) 40 mg capsule Take 40 mg by mouth daily Active golimumab (SIMPONI ARIA) 12.5 mg/mL solutionIndicat ions:Rheumatoid Arthritis 2mg/kg IV infused over 30 minutes at weeks 0 and 4, then x7bsdzk 02/08/2019 Active omeprazole (PriLOSEC) 20 mg capsule Take 20 mg by mouth daily Active diclofenac DR (VOLTAREN) 75 mg EC tablet Take 1 tablet (75 mg total) by mouth 2 (two) times a day As needed for pain 60 tablet 2 05/27/2022 Active hydrOXYzine (ATARAX) 50 mg tablet Take 1 tablet (50 mg total) by mouth every 8 (eight) hours as needed 01/05/2024 Active folic acid (FOLVITE) 1 mg tablet TAKE 1 TABLET(1000 MCG) BY MOUTH DAILY 90 tablet 1 07/19/2024 Active methotrexate 2.5 mg tabletIndicatio ns:Rheumatoid Arthritis TAKE 6 TABLETS BY MOUTH EVERY WEEK 72 tablet 1 07/19/2024 Active Active Problems Problem Noted Date Diagnosed Date Urticaria 01/19/2024 Assessment & Plan (01/19/2024 3:08 PM CDT): Has urticaria on face today, and she reports also having similar rashes on neck, arms, and torso over the past weeks. She reports a frequent itching sensation all over. No change in meds, diet, or other exposures prior to onset of these rashes. Was prescribed antihistamines per ER, then a steroid script was given by PCP yesterday. She has been using zyrtec daily, has not started prednisone yet. I advised her to go ahead and start the prednisone and take as directed. Continue zyrtec and could increase to BID. Recommend she try to get in with derm and/or mexican food cook if urticaria persists. I do not think the rash has anything to do with her mtx/simponi aria so may keep infusion as scheduled tomorrow. She also has some erythema surrounding a shallow skin lac she got the other day when using a weedeater. Has been using neosporin. I suspect she might be reacting to the neosporin so advised to switch to polysporin instead. Rash and nonspecific skin eruption 04/13/2019 Assessment & Plan (05/15/2019 5:21 PM PIG CASTING MACHINE OPERATOR): Improved with time/valtrex. Possible shingles. I do not think the rash represented an allergic reaction to Simponi so ok to proceed with infusions. Discussed Shingrix and would go ahead and recommend doing this. Assessment & Plan (04/13/2019 4:37 PM CDT): Erythematous nodules to upper chest, anterior R shoulder, and posterior neck that started 2 days ago. She had her second infusion of Simponi Aria 2 days prior to onset of rash. Based on appearance and distribution of lesions I do not feel that they represent an allergic reaction to the infusion. They appear to be bites/possibly infectious etiology. Consider shingles though do not have typical vesicular appearance. Mildly itchy/tender. Will still go ahead and treat with valtrex 1gm TID x 7 days. Asked to give update in about a week. To derm if not improving. Abnormal mammogram of left breast 10/20/2018 Osteopenia of multiple sites 07/21/2017 Overview (05/27/2022): Osteopenia -1.8 spine in 2018 BMD 12/27/19: lumbar spine -1.6, hip -1.2 FRAX 6.9, 0.1 BMD 03/18: lumbar spine -2.2, L femoral neck -1.7, R femoral neck -0.7. FRAX 12% and 1.7% Assessment & Plan (07/19/2024 12:46 PM PIG CASTING MACHINE OPERATOR): BMD 12/27/19: lumbar spine -1.6, hip -1.2 FRAX 6.9, 0.1 BMD 03/18: lumbar spine -2.2, L femoral neck -1.7, R femoral neck -0.7. FRAX 12% and 1.7% Some worse but still low FRAX score. Continue calcium and vit D. Repeat bmd in 03/20 - pt has order and will try to do when schedule allows Assessment & Plan (04/19/2024 11:03 AM CDT): BMD 12/27/19: lumbar spine -1.6, hip -1.2 FRAX 6.9, 0.1 BMD 03/18: lumbar spine -2.2, L femoral neck -1.7, R femoral neck -0.7. FRAX 12% and 1.7% Some worse but still low FRAX score. Continue calcium and vit D. Repeat bmd in 03/20 - pt has order and will try to do when schedule allows Assessment & Plan (01/19/2024 9:53 AM CDT): BMD 12/27/19: lumbar spine -1.6, hip -1.2 FRAX 6.9, 0.1 BMD 03/18: lumbar spine -2.2, L femoral neck -1.7, R femoral neck -0.7. FRAX 12% and 1.7% Some worse but still low FRAX score. Continue calcium and vit D. Repeat bmd in 03/20 Assessment & Plan (10/20/2023 9:32 AM CDT): BMD 12/27/19: lumbar spine -1.6, hip -1.2 FRAX 6.9, 0.1 BMD 03/18: lumbar spine -2.2, L femoral neck -1.7, R femoral neck -0.7. FRAX 12% and 1.7% Some worse but still low FRAX score. Continue calcium and vit D. Repeat bmd in 03/20 Assessment & Plan (07/21/2023 1:33 PM PIG CASTING MACHINE OPERATOR): BMD 12/27/19: lumbar spine -1.6, hip -1.2 FRAX 6.9, 0.1 BMD 03/18: lumbar spine -2.2, L femoral neck -1.7, R femoral neck -0.7. FRAX 12% and 1.7% Some worse this year but still low FRAX score. Continue calcium and vit D Assessment & Plan (05/27/2022 1:18 PM PIG CASTING MACHINE OPERATOR): BMD 12/27/19: lumbar spine -1.6, hip -1.2 FRAX 6.9, 0.1 BMD 03/18: lumbar spine -2.2, L femoral neck -1.7, R femoral neck -0.7. FRAX 12% and 1.7% Some worse this year but still low FRAX score. Continue calcium and vit D Assessment & Plan (02/25/2022 2:51 PM CDT): BMD 12/27/19: lumbar spine -1.6, hip -1.2 FRAX 6.9, 0.1 Repeating bmd this month Assessment & Plan (11/26/2021 1:19 PM CDT): BMD 12/27/19: lumbar spine -1.6, hip -1.2 FRAX 6.9, 0.1 Repeat in 2 yrs, due in 01/15 Assessment & Plan (08/27/2021 1:29 PM PIG CASTING MACHINE OPERATOR): BMD 12/27/19: lumbar spine -1.6, hip -1.2 FRAX 6.9, 0.1 Repeat in 2 yrs, due in 01/15 Assessment & Plan (02/19/2021 1:01 PM CDT): BMD 12/27/19: lumbar spine -1.6, hip -1.2 FRAX 6.9, 0.1 Repeat in 2 yrs Assessment & Plan (11/20/2020 1:39 PM CDT): BMD 12/27/19: lumbar spine -1.6, hip -1.2 FRAX 6.9, 0.1 Repeat in 2 yrs Assessment & Plan (05/15/2020 1:36 PM PIG CASTING MACHINE OPERATOR): BMD 12/27/19: lumbar spine -1.6, hip -1.2 FRAX 6.9, 0.1 Repeat in 2 yrs Assessment & Plan (02/15/2020 1:02 PM CDT): BMD 12/27/19: lumbar spine -1.6, hip -1.2 FRAX 6.9, 0.1 Repeat in 2 yrs Assessment & Plan (11/15/2019 1:25 PM CDT): Osteopenia -1.8 spine in 07/2017. Will give order to repeat bmd, unable to do due to pandemic. Will do when able Assessment & Plan (08/16/2019 1:37 PM PIG CASTING MACHINE OPERATOR): Osteopenia -1.8 spine in 07/2017. Will give order to repeat bmd Assessment & Plan (11/10/2018 1:08 PM CDT): Osteopenia -1.8 spine in 2018 Assessment & Plan (08/10/2018 1:26 PM PIG CASTING MACHINE OPERATOR): Osteopenia -1.8 spine in 2018 Assessment & Plan (04/25/2018 5:10 PM CDT): Osteopenia -1.8 spine in 2018 High risk medications (not anticoagulants) long- term use 01/21/2017 Overview (02/18/2020): Neg quantiferon 02/13 Neg cxr 01/13 Neg hepatitis 8/19 Assessment & Plan (07/19/2024 12:45 PM PIG CASTING MACHINE OPERATOR): Quant gold neg 11/18 cxr neg 7/20 Neg hepatitis 8/19 May do labs [id number]. Vaccine recommendations: yearly flu shot - not yet done She had tvclzwoot06 in 2013, got a booster in 2020. Had a dose of xpjahmc34. utd tdap. utd shingrix. New COVID vaccine 04/18. Hasn't had RSV vaccine yet. utd colonoscopy in 10/15. utd mammograms. Assessment & Plan (04/19/2024 11:02 AM CDT): Quant gold neg 11/18 cxr neg 7/20 Neg hepatitis 8/19 May do labs c3ltmxml. Vaccine recommendations: yearly flu shot - planned for 05/20. She had fjvrjemqq42 in 2012, got a booster in 2019. Had a dose of aesfvwr30. utd tdap. utd shingrix. New COVID vaccine 04/18. Hasn't had RSV vaccine yet. utd colonoscopy in 10/15. utd mammograms. Assessment & Plan (01/19/2024 9:53 AM CDT): Quant gold neg 1118 cxr neg 7/20 Neg hepatitis 8/19 May do labs g4wpvwav. Vaccine recommendations: yearly flu shot utd. She had vujvtkfck49 in 2012, got a booster in 2019. Had a dose of tnhevlo64. utd tdap. utd shingrix. New COVID vaccine 04/18. Hasn't had RSV vaccine yet. utd colonoscopy in 10/15. utd mammograms. Assessment & Plan (10/20/2023 10:24 AM CDT): Quant gold neg 11/18 cxr neg 7/20 Neg hepatitis 8/19 May do labs t9dtfrns. Vaccine recommendations: yearly flu shot utd. She had in 2013, got a booster in 2020. Had a dose of qgnukto73. utd tdap. utd shingrix. New COVID vaccine 04/18. Hasn't had RSV vaccine yet. utd colonoscopy in 10/15. utd mammograms. Assessment & Plan (07/21/2023 10:29 AM PIG CASTING MACHINE OPERATOR): Quant gold neg 11/18 cxr neg 7/20 Neg hepatitis 8/19 May do labs r9novbyw. Vaccine recommendations: yearly flu shot utd. She had hqzigokez80 in 2013, got a booster in 2019. Had a dose of . utd tdap. utd shingrix. New COVID vaccine 04/18. Discussed RSV vaccine and she is eligible, will need script for pharmacy. utd colonoscopy in 10/15. utd mammograms. Assessment & Plan (04/19/2023 11:08 AM CDT): Quant gold neg 1118 cxr neg 7/20 Neg hepatitis 8 May do labs c6yusdlk. Vaccine recommendations: yearly flu shot utd. She had meefvwidg57 in 2012, got a booster in 2019. Had a dose of mhbabqr21. utd tdap. utd shingrix. New COVID vaccine 04/18 utd colonoscopy in 10/15. utd mammograms. Assessment & Plan (01/20/2023 10:32 AM CDT): Quant gold neg 11/18 cxr neg 7/20 Neg hepatitis 8/19 May do labs s4jjblzk. Vaccine recommendations: yearly flu shot utd. She had alrzkcekt79 in 2013, got a booster in 2019. Had a dose of lopkdml13. utd tdap. utd shingrix. Received COVID vaccines and 3rd dose. utd colonoscopy in 10/15. utd mammograms. Assessment & Plan (09/24/2022 12:18 PM CDT): Quant gold neg 11/18 cxr neg 7/20 Neg hepatitis 8/19 May do labs u4sitqoe. Vaccine recommendations: yearly flu shot utd. She had atkvxdjso12 in 2013, got a booster in 2020. Had a dose of fwjqhyb18. utd tdap. utd shingrix. Received COVID vaccines and 3rd dose. utd colonoscopy in 10/15. utd mammograms. Assessment & Plan (05/27/2022 1:14 PM PIG CASTING MACHINE OPERATOR): Quant gold neg 11/18 cxr neg 7/20 Neg hepatitis 8 May do labs s9ywltfm. Vaccine recommendations: yearly flu shot utd. She had hynzifdqw71 in 2013, got a booster in 2020. Had a dose of . utd tdap. utd shingrix. Received COVID vaccines and 3rd dose. utd colonoscopy in 10/15. utd mammograms. Assessment & Plan (02/25/2022 12:58 PM CDT): Quant gold neg 11/18 cxr neg 7/20 Neg hepatitis 8/19 May do labs c5sqnjeg. Vaccine recommendations: yearly flu shot utd. She had fimyvhpoo62 in 2013, got a booster in 2020. Had a dose of mleyyir34. utd tdap. utd shingrix. Received COVID vaccines and 3rd dose. utd colonoscopy in 10/15. utd mammograms. Assessment & Plan (11/26/2021 1:11 PM CDT): Quant gold neg 11/18 cxr neg 7/20 Neg hepatitis 8/19 October do labs m7idnzay. Vaccine recommendations: yearly flu shot utd. She had ypybowthn93 in 2013, got a booster in 2020. Had a dose of vinpjew80. utd tdap. utd shingrix. Received COVID vaccines and 3rd dose. utd colonoscopy in 10/15. utd mammograms. Assessment & Plan (08/27/2021 1:29 PM PIG CASTING MACHINE OPERATOR): Quant gold neg 11/18 cxr neg 7/20 Neg hepatitis 8/19 May do labs x3cjmcne. Vaccine recommendations: yearly flu shot utd. She had xiwbgwwyv96 in 2013, got a booster in 2020. Had a dose of jzbtlko01. utd tdap. utd shingrix. Received COVID vaccines and 3rd dose. utd colonoscopy in 10/15. utd mammograms. Assessment & Plan (05/28/2021 1:50 PM PIG CASTING MACHINE OPERATOR): Quant gold neg 11/18 cxr neg 7/20 Neg hepatitis 8/19 May do labs m8zihkfs. Vaccine recommendations: yearly flu shot utd. She had uwdokjgsm27 in 2013, got a booster in 2020. Had a dose of utvjion32. utd tdap. utd shingrix. Received COVID vaccines and 3rd dose. utd colonoscopy in 10/15. utd mammograms. Assessment & Plan (02/19/2021 1:09 PM CDT): Quant gold neg /18 cxr neg 7/20 Neg hepatitis 8/19 May do labs j0kasxsh. Vaccine recommendations: yearly flu shot. She had eexvzfamk92 in 2013, got a booster in 2020. Had a dose of bhuqbha08. utd tdap. utd shingrix. Received COVID vaccine. May get booster. utd colonoscopy in 10/15. utd mammograms. Assessment & Plan (11/20/2020 1:39 PM CDT): Quant gold neg 18 cxr neg 7/20 Neg hepatitis 8/19 May do labs z0nrwfpf. Vaccine recommendations: yearly flu shot. She had in 2013, got a booster in 2020. Had a dose of hdmzude44. utd tdap. utd shingrix. Received COVID vaccine. utd colonoscopy in 10/15. utd mammograms. Assessment & Plan (08/21/2020 6:52 PM PIG CASTING MACHINE OPERATOR): Quant gold neg 11/18 cxr neg 7/20 Neg hepatitis 8/19 May do labs c3gwvjsu. Vaccine recommendations: yearly flu shot. She had cbrbnywqg56 in 2013, got a booster in 2020. Had a dose of susrtyq22. utd tdap. utd shingrix. Receiving COVID vaccine. Assessment & Plan (05/15/2020 1:32 PM PIG CASTING MACHINE OPERATOR): Quant gold neg 11/18 cxr neg 7/20 Neg hepatitis 8/19 May do labs k0ohugkj. Vaccine recommendations: yearly flu shot. She had aqcfwvksg53 in 2013, got a booster in 2020. Had a dose of ffrirvj74. utd tdap. utd shingrix. Assessment & Plan (02/15/2020 2:36 PM CDT): Quant gold neg 11/18 cxr neg 20 Neg hepatitis 8/19 May do labs x9fwwemk. Vaccine recommendations: yearly flu shot. She had bpjxbtziu99 in 2012, got a booster in 2019. Had a dose of sdwiwtp06. utd tdap. utd shingrix. Assessment & Plan (11/15/2019 1:24 PM CDT): Quant gold neg 11/18 cxr neg 8/18. Has order to repeat Neg hepatitis 02/12 May do labs z8rsdiyv. Vaccine recommendations: utd flu shot. She had savsoytbh05 in 2012. Had a dose of . May have booster for urduqkwkv24. utd tdap. utd shingrix. Assessment & Plan (08/16/2019 1:34 PM PIG CASTING MACHINE OPERATOR): Quant gold neg 11/18 cxr neg 8/18 Neg hepatitis 8/19 May do labs z5rtjecn. Vaccine recommendations: utd flu shot. She had vtitbvupm54 in 2012. Had a dose of osohell56. May have booster for qgwucdefq42. utd tdap. utd shingrix. Assessment & Plan (05/15/2019 1:05 PM PIG CASTING MACHINE OPERATOR): Quant gold neg 11/18 cxr neg 8/18 Neg hepatitis 8/19 Standing order is good from 10/13 through 04/14. May do labs r3fmjdwe. Vaccine recommendations: utd flu shot. She had in 2012. Had a dose of xjalfiy60. May have booster for . utd tdap. May have Shingrix. Assessment & Plan (04/13/2019 8:38 AM CDT): Quant gold neg 11/18 cxr neg 8/18 Neg hepatitis 8/19 Standing order is good from 10/13 through 04/14. May do labs x9dfjhai. Vaccine recommendations: utd flu shot. She had vzrrmpfie07 in 2013. Had a dose of dhypzfk44. May have booster for hdpalxqqc34. utd tdap. May have Shingrix. Assessment & Plan (02/08/2019 2:10 PM CDT): Quant gold neg 18 cxr neg 8/18 Standing order is good from 10/13 through 04/14. May do labs w7mqswof. Vaccine recommendations: utd flu shot. She had xfvyxnhyz30 in 2012. Had a dose of wlolsvd48. May have booster for . utd tdap. May have Shingrix. Assessment & Plan (11/10/2018 4:32 PM CDT): Quant gold neg 18 cxr neg 818 Standing order is good from 10/13 through 04/14. May do labs u2gdcvxb. Vaccine recommendations: utd flu shot. She had ojqmlxmmb32 in 2012. Should go for Tjvvzym33 now. At least 8 weeks later get booster of bticbxbru37 (since immune compromised). Also inquire about availability of Shingrix and may have this. Check with pcp about Tdap status. Hold mtx for 2 weeks following dose of vaccine. Assessment & Plan (08/10/2018 1:48 PM PIG CASTING MACHINE OPERATOR): Quant gold neg 18 cxr neg 818 Standing order is good from 04/13 through 10/13. May do labs f9vgsurr. Reviewed vaccine recommendations with pt. utd flu shot. She had wwlzhcuyp22 in 2012. Should go for Miljecg74 now. At least 8 weeks later get booster of oyiedtoao36 (since immune compromised). Also inquire about availability of Shingrix and may have this. Check with pcp about Tdap status. Hold mtx for 2 weeks following dose of vaccine. Assessment & Plan (04/24/2018 4:47 PM CDT): Quant gold neg /. cxr neg 8/18 Standing order is good from 04/13 through 10/13 Assessment & Plan (01/23/2018 10:45 AM CDT): Quant gold neg /. cxr neg 8/17 Standing order is good from 10/12- 04/13 Assessment & Plan (10/21/2017 11:14 AM CDT): Quant gold neg 12/17. cxr neg 8/17 Standing order is good from 10/12- 04/13 Assessment & Plan (07/21/2017 11:22 AM PIG CASTING MACHINE OPERATOR): Quant gold neg /. Assessment & Plan (04/21/2017 9:31 PM CDT): neg quantiferon / neg cxr 02/10 utd flu and pneumovax Assessment & Plan (01/21/2017 9:23 AM CDT): neg quantiferon 05/12 neg cxr 09/2015 utd flu and pneumovax Varicose veins of lower extremity 09/22/2015 Depression 11/27/2013 Overview (10/01/2016): Depression Gastric ulcer 11/10/2013 Overview (10/01/2016): Gastric ulcer Localized osteoarthrosis 11/10/2013 Overview (10/01/2016): Osteoarthritis, localized, knee Assessment & Plan (04/19/2023 11:07 AM CDT): bilat knee replacements Assessment & Plan (01/21/2017 9:16 AM CDT): bilat knee replacements Drug indicated 03/19/2013 Overview (09/30/2016): High risk medication use Seropositive rheumatoid arthritis of multiple si erich 03/19/2013 Overview (02/15/2020): utd flu and pneumovax positive RF, [facility]CP Injection site reaction to enbrel. Took humira for years and did well. Changed to simponi aria due to medicare On simponi aria, mtx Assessment & Plan (07/19/2024 12:45 PM PIG CASTING MACHINE OPERATOR): cdai = 3, remission Changed from Humira to Simponi Aria due to Medicare several years ago and continues to do well overall. Plan to continue with Simponi Aria b1dmath. Continue mtx 15mg weekly. Continue routine labs. F/u 3 months. Assessment & Plan (04/19/2024 11:02 AM CDT): cdai = 0, remission Changed from Humira to Simponi Aria due to Medicare several years ago and continues to do well overall. Plan to continue with Simponi Aria m4apogs. Continue mtx 15mg weekly. Continue routine labs. F/u 3 months. Assessment & Plan (01/19/2024 3:03 PM CDT): cdai = 0, remission Changed from Humira to Simponi Aria due to Medicare several years ago and continues to do well overall. Plan to continue with Simponi Aria l0lnwnc. Continue mtx 15mg weekly. Continue routine labs. F/u 3 months. Assessment & Plan (10/20/2023 10:24 AM CDT): cdai = 1, remission Changed from Humira to Simponi Aria due to Medicare several years ago and continues to do well overall. Plan to continue with Simponi Aria b0mdgjg. Continue mtx 15mg weekly. Continue routine labs. F/u 3 months. Assessment & Plan (07/21/2023 1:33 PM PIG CASTING MACHINE OPERATOR): cdai = 1, remission Changed from Humira to Simponi Aria due to Medicare several years ago and continues to do well overall. Plan to continue with Simponi Aria n6wzzgv. Continue mtx 15mg weekly. Continue routine labs. F/u [address] Carrasco. Assessment & Plan (04/19/2023 11:07 AM CDT): cdai = 1, remission Changed from Humira to Simponi Aria due to Medicare and continues to do well overall. Plan to continue with Simponi Aria q8pemuu. Continue mtx 15mg weekly. Continue routine labs. F/u 3 months. Assessment & Plan (01/20/2023 11:20 AM CDT): cdai = 0, remission Changed from Humira to Simponi Aria due to Medicare and continues to do well overall. Plan to continue with Simponi Aria f3ceozh. Continue mtx 15mg weekly. Continue routine labs. F/u [address] Almaraz. Assessment & Plan (09/24/2022 1:59 PM CDT): cdai = 1, remission Changed from Humira to Simponi Aria due to Medicare and continues to do well overall. Plan to continue with Simponi Aria s2ftchb. Continue mtx 15mg weekly. Continue routine labs. F/u 3 months. Assessment & Plan (05/27/2022 1:14 PM PIG CASTING MACHINE OPERATOR): cdai = , low activity/remission Changed from Humira to Simponi Aria due to Medicare and continues to do well overall. Plan to continue with Simponi Aria r4kbgxg. Continue mtx 15mg weekly. Continue routine labs. F/u 3 months. Assessment & Plan (02/25/2022 2:50 PM CDT): cdai = 0, low activity/remission Changed from Humira to Simponi Aria due to Medicare and continues to do well overall. Plan to continue with Simponi Aria i6srhgw. Continue mtx 15mg weekly. Continue routine labs. F/u 3 months. Assessment & Plan (11/26/2021 4:50 PM CDT): cdai = 4, low activity Changed from Humira to Simponi Aria due to Medicare and continues to do well overall. Plan to continue with Simponi Aria c1hkire. Continue mtx 15mg weekly. Continue routine labs. F/u 3 months. Assessment & Plan (08/27/2021 1:48 PM PIG CASTING MACHINE OPERATOR): cdai = 2, remission Changed from Humira to Simponi Aria due to Medicare and continues to do well overall. Plan to continue with Simponi Aria z4plzib. Continue mtx 15mg weekly. Continue routine labs. F/u 3 months. Assessment & Plan (05/28/2021 1:52 PM PIG CASTING MACHINE OPERATOR): cdai = 3, remission Changed from Humira to Simponi Aria due to Medicare and continues to do well overall. Plan to continue with Simponi Aria b0snlim. Continue mtx 15mg weekly. Continue routine labs. F/u 3 months. Assessment & Plan (02/19/2021 1:11 PM CDT): cdai = 1, remission Changed from Humira to Simponi Aria due to Medicare and continues to do well overall. Plan to continue with Simponi Aria r0zrypt. Continue mtx 15mg weekly. Continue routine labs. F/u 3 months. Assessment & Plan (11/20/2020 1:41 PM CDT): cdai = 0, remission Changed from Humira to Simponi Aria due to Medicare and continues to do well overall. Plan to continue with Simponi Aria b2whgmj. Continue mtx 15mg weekly. Continue routine labs. F/u 3 months. Assessment & Plan (08/21/2020 6:51 PM PIG CASTING MACHINE OPERATOR): cdai = 0, remission Changed from Humira to Simponi Aria due to Medicare and continues to do well overall. Plan to continue with Simponi Aria l8haqxn. Continue mtx 15mg weekly. Continue routine labs. F/u 3 months. utd flu shot. utd soweukn06 and shingrix. Had booster of ivbkaliga63 in 08/16. Had covid vaccine. Advised to hold mtx for 1 week following vaccine administration. Assessment & Plan (05/15/2020 1:35 PM PIG CASTING MACHINE OPERATOR): cdai = 2, remission Changed from Humira to Simponi Aria due to Medicare and continues to do well overall. Plan to continue with Simponi Aria g3ruynj. Continue mtx 15mg weekly. Continue routine labs via standing order. F/u 3 months. utd flu shot. utd jtiaean91 and shingrix. Had booster of ltenagybp86 in 08/16. Assessment & Plan (02/15/2020 2:35 PM CDT): cdai = 3, remission Changed from Humira to Simponi Aria due to Medicare. Plan to continue with Simponi Aria [id number]. Continue mtx. utd labs. She is asking if she can get her labs done when here for infusions, o9dryjn. I put in a standing order for this. F/u 3 months. utd flu shot. utd and shingrix. Had booster of donppwigx66 in 08/16. Assessment & Plan (11/15/2019 1:24 PM CDT): cdai = 2, remission Changed from Humira to Simponi Aria due to Medicare. Plan to continue with Simponi Aria [id number]. Continue mtx. utd labs. Reviewed recent labs which were normal. Continue every 3 months. F/u 3 months. utd flu shot. To get booster of [id number]. utd [id number] and shingrix. Assessment & Plan (08/16/2019 1:38 PM PIG CASTING MACHINE OPERATOR): cdai = 0 Changed from Humira to Simponi Aria due to Medicare. Plan to continue with Simponi Aria [id number]. Continue mtx. utd labs. Will give order to do labs again in 3 months. F/u 3 months. utd flu shot. To get booster of [id number]. utd [id number] and shingrix. Assessment & Plan (05/15/2019 1:19 PM PIG CASTING MACHINE OPERATOR): cdai = 3 Recently changed from Humira to Simponi Aria due to Medicare. Plan to continue with Simponi Aria [id number]. Continue mtx. utd labs. F/u 3 months. utd flu shot. To get booster of [id number] and shingrix. Assessment & Plan (04/13/2019 4:36 PM CDT): Recently changed from Humira to Simponi Aria due to Medicare. Has a rash that started after simponi but I do not feel it is a reaction. See below. Will still plan to continue with Simponi Aria [id number]. Continue mtx. utd labs. Keep next visit for 1 month. Assessment & Plan (02/08/2019 2:08 PM CDT): cdai = 3 Doing very well on mtx and humira at this time. Due to starting Medicare soon will plan to change to Simponi aria when out of her current supply of Humira. utd flu shot. utd labs. May do standing order [id number] since stable. f/u 3 months. Assessment & Plan (11/10/2018 4:31 PM CDT): cdai = 3 Doing very well on mtx and humira at this time. Will cont present meds. utd flu shot. utd labs. May do standing order [id number] since stable. f/u 3 months. She will be going on Medicare soon when her retires and we may try changing to simponi aria at that time for better coverage. Assessment & Plan (08/10/2018 1:40 PM PIG CASTING MACHINE OPERATOR): cdai = 5 Doing very well on mtx and humira at this time. Will cont present meds. utd flu shot. utd labs. May do standing order [id number] since stable. f/u 3 months. Assessment & Plan (04/25/2018 11:01 AM CDT): cdai = 5 Doing very well on mtx and humira at this time. Will cont present meds. Flu shot today. Hold mtx for 2 weeks following flu shot. utd labs. f/u 3 months. quantiferon order with next labs Assessment & Plan (01/23/2018 10:56 AM CDT): cdai = 6 Doing very well on mtx and humira at this time. Will cont present meds. f/u 3 months Assessment & Plan (10/21/2017 11:15 AM CDT): cdai = 5 Doing very well on mtx and humira at this time. Will cont present meds. f/u 3 months Assessment & Plan (07/21/2017 11:21 AM PIG CASTING MACHINE OPERATOR): cdai 3. Doing very well on mtx and humira at this time. Will cont presen t meds. Qunat was neg in 06/12. F/u 3m Assessment & Plan (04/22/2017 11:19 AM CDT): cdai = 3 Doing well on humira and mtx. neg quantiferon 05/12. Stable cxr from 02/10. Reviewed labs from 04/12 that were ok. Will give another order including quantiferon to do in the next month or two. f/u 3 months. Assessment & Plan (01/21/2017 10:36 AM CDT): cdai = 3 Doing well on humira and mtx. reviewed labs from November which were stable. She had more recent labs done about a week ago and have not seen results yet. neg quantiferon 05/12. Stable cxr from 10/10. Will repeat. f/u 3 months. Immunizations Immunization Administration Dates Next Due Influenza, Quadrivalent, Apple l Culture-based MDCK, Antibiotic Free, Intramuscular 04/25/2018 Influenza, Quadrivalent, Hig h Dose, Preservative Free, Intrr 03/03/2020 Influenza, Trivalent, Adjuvanted, Intramuscular 05/15/2019 Influenza, Trivalent, IM (MDV) 04/07/2015 Influenza, Unspecified 04/15/2022 Pfizer Sars-Cov-2 Bivalent Vaccination (12+ YRS) 04/15/2022 Pneumococcal Conjugate PCV 13 08/17/2018 Pneumococcal Polysaccharide PPV23 08/17/2019,10/2012 Tdap 06/29/2016 ZOSTER LIVE 04/27/2012 ZOSTER Recombinant 08/03/2019,05/15/2019 Social History Tobacco Use Types Packs/Day Years Used Date Smoking Tobacco: Never Smokeless Tobacco: Never Alcohol Use Standard Drinks/Week Comments Yes 0 (1 standard drink = 0.6 oz pur e alcohol) socially Comments No Sex and Gender Information Value Date Recorded Sex Assigned at Not on file Legal Sex Female 7:17 AM PIG CASTING MACHINE OPERATOR Gender Identity Female 02/22/2021 1:14 PM CDT Sexual Orientation Not on file Last Filed Vital Signs Vital Sign Reading Time Taken Comments Blood Pressure 120/76 07/19/2024 10:24 AM PIG CASTING MACHINE OPERATOR Pulse 73 07/19/2024 10:24 AM PIG CASTING MACHINE OPERATOR Temperature 36.6 C (97.8 F) 08/27/2021 1:22 PM PIG CASTING MACHINE OPERATOR Respiratory Rate - - Oxygen Saturation 96% 07/19/2024 10:24 AM PIG CASTING MACHINE OPERATOR Inhaled Oxygen Concentration - - Weight 104.3 kg (230 lb) 07/19/2024 10:24 AM PIG CASTING MACHINE OPERATOR Height 165.1 cm (5' 5 ) 07/19/2024 10:24 AM PIG CASTING MACHINE OPERATOR Body Mass Index 38.27 07/19/2024 10:24 AM PIG CASTING MACHINE OPERATOR Plan of Treatment Not on file Procedures Procedure Name Priority Date/Time Associated Diagnosis Comments ERYTHROCYTE SEDIMENTATION RATE Routine 07/19/2024 10:45 AM PIG CASTING MACHINE OPERATOR Seropositive rheumatoid arthritis of multiple sites (HCC) High risk medications (not anticoagulants) long-term use CRP (ACUTE PHASE) Routine 07/19/2024 10: 45 AM PIG CASTING MACHINE OPERATOR Seropositive rheumatoid arthritis of multiple sites (HCC) High risk medications (not anticoagulants) long-term use COMPREHENSIVE METABOLIC PANEL Routine 07/19/2024 10:45 AM PIG CASTING MACHINE OPERATOR Seropositive rheumatoid arthritis of multiple sites (HCC) High risk medications (not anticoagulants) long-term use CBC WITH AUTO DIFFERENTIAL Routine 07/19/2024 10:45 AM PIG CASTING MACHINE OPERATOR Seropositive rheumatoid arthritis of multiple sites (HCC) High risk medications (not anticoagulants) long-term use SCREENING MAMMOGRAM BILATERAL W IVAN Schedule Routine, Read Routine (OP Routine) 03/22/2024 9:34 AM CDT Screening mammogram, encounter for HEPATITIS PANEL, ACUTE Routine 02/16/2019 10:01 AM CDT Seropositive rheumatoid arthritis of multiple sites (HCC) Encounter for long-term (current) use of high-risk medication Fatigue, unspecified type from Last 3 Months or Most Recently Relevant to Health Maintenance Results * CBC with auto differential (07/19/2024 10:45 AM PIG CASTING MACHINE OPERATOR) WBC 7.8 3.8 - 10.8 Thousand/u L [facility] RBC, POC 4.26 3.80 - 5.10 Million/uL [facility] Hgb 13.8 11.7 - 15.5 g/dL [facility] Hct 42.0 35.0 - 45.0 % [facility] MCV 98.6 80.0 - 100.0 fL [facility] MCH 32.4 27.0 - 33.0 pg [facility] MCHC 32.9 32.0 - 36.0 g/dL [facility] Comment: For adults, a slight decrease in the calculated MCHC value (in the range of 30 to 32 g/dL) is most likely not clinically significant; however, it should be interpreted with caution in correlation with other red cell parameters and the patient's clinical condition. Rdw 13.4 11.0 - 15.0 % [facility] Platelets 192 140 - 400 Thousand/u L [facility] MPV 11.6 7.5 - 12.5 fL [facility] Neutrophils, abs 5,226 1,500 - 7,800 cells/uL [facility] Lymphocytes, abs 1,856 850 - 3,900 cells/uL [facility] Monocyte abs 476 200 - 950 cells/uL [facility] Eosinophils, abs 179 15 - 500 cells/uL [facility] Basophils, abs 62 0 - 200 cells/uL [facility] Neutrophils 67 % [facility] Lymphocyte pct 23.8 % [facility] Monocytes 6.1 % [facility] Eosinophils 2.3 % [facility] Basophils 0.8 % [facility] Blood 07/19/2024 10:4 5 AM PIG CASTING MACHINE OPERATOR 07/19/2024 10:45 AM PIG CASTING MACHINE OPERATOR Ange Dempsey PR LAB BLOOD ORDERABLES Fin al Result Performing Organization Address [facility] Co de Phone Number QUE[facility] [address] [place] [address] * Erythrocyte sedimentation rate (07/19/2024 10:45 AM PIG CASTING MACHINE OPERATOR) Erythrocyte sedimentation rate 14 < OR = 30 mm/h [facility] Blood 07/19/2024 10:4 5 AM PIG CASTING MACHINE OPERATOR 07/19/2024 10:45 AM PIG CASTING MACHINE OPERATOR Ange Dempsey PR LAB BLOOD ORDERABLES Fin al Result Performing Organization Address [facility] de Phone Number [facility] [employer] [facility] [address] [place] [address] * CRP (acute phase) (07/19/2024 10:45 AM PIG CASTING MACHINE OPERATOR) C-RP <3.0 <8.0 mg/L [facility] Blood 07/19/2024 10:4 5 AM PIG CASTING MACHINE OPERATOR 07/19/2024 10:45 AM PIG CASTING MACHINE OPERATOR Ange Dempsey PR LAB BLOOD ORDERABLES Fin al Result Performing Organization Address [facility] Phone Number [facility] [address] [place] [address] * (ABNORMAL) Comprehensive metabolic panel (07/19/2024 10:45 AM PIG CASTING MACHINE OPERATOR) Glucose 102(H) 65 - 99 mg/dL [facility] Comment: Fasting reference interval For someone without known diabetes, a glucose value between 100 and 125 mg/dL is consistent with prediabetes and should be confirmed with a follow-up test. BUN 11 7 - 25 mg/dL [facility] Creatinine 0.76 0.60 - 1.00 mg/dL [facility] eGFR 84 > OR = 60 mL/min/1.7 3m2 [facility] BUN/creat ratio SEE NOTE: 6 - 22 (calc) [facility] Comment: Not Reported: BUN and Creatinine are within reference range. Sodium 140 135 - 146 mmol/L [facility] Potassium, pl 4.5 3.5 - 5.3 mmol/L [facility] Chloride 103 98 - 110 mmol/L [facility] CO2 30 20 - 32 mmol/L [facility] Calcium 9.5 8.6 - 10.4 mg/dL [facility] Protein, sr 6.9 6.1 - 8.1 g/dL [facility] Albumin 4.2 3.6 - 5.1 g/dL [facility] GLOBULIN 2.7 1.9 - 3.7 g/dL (calc) [facility] Alb/glob ratio 1.6 1.0 - 2.5 (calc) [facility] Bilirubin, total 0.9 0.2 - 1.2 mg/dL [facility] Alk phos 78 37 - 153 U/L [facility] AST 19 10 - 35 U/L [facility] ALT (SGPT) 16 6 - 29 U/L [facility] Blood 07/19/2024 10:4 5 AM PIG CASTING MACHINE OPERATOR 07/19/2024 10:45 AM PIG CASTING MACHINE OPERATOR Ange YING LAB BLOOD ORDERABLES Fin al Result [facility] [address] [address] [place] [address] * Screening Mammogram Bilateral W Ivan (03/22/2024 9:34 AM CDT) Anatomical Region Laterality Modality Breast Bilateral Mammography Narrative 03/22/2024 2:11 PM CDT Mammogram Technique: Bilateral Digital Breast Tomosynthesis, Bilateral C-view 2D Screening mammogram. Views obtained: bilateral craniocaudal and bilateral mediolateral oblique. Computer Aided Detection was performed. Mammogram Findings: The present examination has been compared to prior imaging studies performed at [facility] on 12/26/2020, 02/17/2022 and 03/15/2023. There are scattered areas of fibroglandular density. There is no suspicious abnormality in either breast. Impression: There is no mammographic evidence of malignancy. Annual screening mammography is recommended. OVERALL FINAL ASSESSMENT: BI-RADS CATEGORY 1: Negative. Procedure Note Hafsa Elizabeth MD - 03/22/2024 Mammogram Technique: Bilateral Digital Breast Tomosynthesis, Bilateral C-view 2D Screening mammogram. Views obtained: bilateral craniocaudal and bilateral mediolateral oblique. Computer Aided Detection was performed. Mammogram Findings: The present examination has been compared to prior imaging studies performed at [facility] on 12/26/2020, 02/17/2022 and 03/15/2023. There are scattered areas of fibroglandular density. There is no suspicious abnormality in either breast. Impression: There is no mammographic evidence of malignancy. Annual screening mammography is recommended. OVERALL FINAL ASSESSMENT: BI-RADS CATEGORY 1: Negative. us Self Screening Mammogram IMG MAMMO PROCEDURES Fi nal Result * Hepatitis panel, acute (02/16/2019 10:01 AM CDT) Hep A IgM Negative Negative [facility] - 01 HepBsAg Negative Negative [facility] - 01 Hep B core IgM Negative Negative [facility] - 01 Hep C Ab <0.1 0.0 - 0.9 s/co ratio [facility] - 01 Comment: Negative: < 0.8 Indeterminate: 0.8 - 0.9 Positive: > 0.9 The CDC recommends that a positive HCV antibody result be followed up with a HCV Nucleic Acid Amplification test (468310). Blood specimen (specimen) 02/16/2019 10:01 AM CDT 02/16/2019 Narrative [facility] - 02/17/2019 6:08 AM CDT Performed at: [address] [place] [id number] Casual Shoe Inspector: Derek Ryan PhD, Phone: [phone] [facility] LAB MICROBIOLOGY - GENER AL ORDERABLES Final Result [facility] - 01 from Last 3 Months or Most Recently Relevant to Health Maintenance Insurance MEDICARE [facility] MEDICARE MEDICARE [facility] MEDICARE MEDICARE [facility] MEDICARE [place] [address] Care Teams Grinder Machine Setter Relationship Specialty Start Date End Date Tello Avelar PA [facility] [place] [address] PCP - General Internal Medicine 11/17/23 Allen Carrasco MD [address] [place] [address] Consulting Physician Rheumatology 07/19/23
--- OUTSIDE RECORDS SUMMARY | 2024-09-17 14:09 | XMS_ITS | Clinical Summary ---
Author Organization [facility] Ping Communication Address [address] [place] [address] Care Team Providers Care Flat Lock Machine Operator Name Role Phone Joy Reed WINNIE-ACQUISITION CONSULTANT Primary Care Provider + Source Comments [facility],non-owned Affiliates and Associated Physician Practices is amultiple site organization consisting of ambulatory clinics and hospital sitesin [place], [place], [place] and [place]. This disclosure is being madepursuant to the Care Everywhere program and may not contain all information available regarding this patient. Last updated 18.[facility] Allergies Active Allergy Reactions Criticality Noted Date Comments Sulfa Drugs Urticaria Medium 12/27/2018 Medications * Be aware that medications may not be up to date on this document. Alwaysverify current medications with the patient. Medication Sig Dispensed Refills Start Date End Date Status simvastatin (ZOCOR) 20 MG tablet Take 20 mg by mouth once daily Active RABEprazole EC (ACIPHEX) 20 MG tablet 20 mg 03/19/2013 Active Psyllium (METAMUCIL PO) 10/22/2016 Active [employer] Fatty Acids (FISH OIL PO) take 1 Capsule by Oral route every day 03/19/2013 Active methotrexate 2.5 MG tablet Take 15 mg by mouth every 7 days 11/10/2018 Active adalimumab (HUMIRA PEN) 40 MG/0.4ML injection INJECT 40MG SUBCUTANEOUSLY EVERY 14 DAYS 10/16/2018 Active FLUoxetine (PROZAC) 40 MG capsule Take 40 mg by mouth once daily Active diclofenac sodium EC (VOLTAREN) 75 MG tablet 75 mg 04/08/2014 Active Calcium Carb-Cholecalcifer ol (CALCIUM + D3 PO) take 1 Capsule by Oral route every day 01/21/2012 Active Active Problems No known active problems Social History Tobacco Use Types Packs/Day Years Used Date Smoking Tobacco: Never Smokeless Tobacco: Never Sex and Gender Information Value Date Recorded Sex Assigned at Not on file Gender Identity Not on file Sexual Orientation Not on file Last Filed Vital Signs Vital Sign Reading Time Taken Comments Blood Pressure 107/70 12/27/2018 11:03 AM CDT Pulse 74 12/27/2018 11:03 AM CDT Temperature 36.9 C (98.4 F) 12/27/2018 11:03 AM CDT Respiratory Rate 16 12/27/2018 11:03 AM CDT Oxygen Saturation 98% 12/27/2018 11:03 AM CDT Inhaled Oxygen Concentration - - Weight 104.3 kg (230 lb) 12/27/2018 11:03 AM CDT Height 165.1 cm (5' 5 ) 12/27/2018 11:03 AM CDT Body Mass Index 38.27 12/27/2018 11:03 AM CDT Plan of Treatment Health Maintenance Due Date Last Done Comments BONE DENSITY TESTING 1955 COLOGUARD (AGES 45-75) - COL ON CA SCREENING 1955 COLON MONITORING 1953 COLONOSCOPY - COLON CA SCREENING 1953 CT COLONOGRAPHY - COLON CA SCREENING 1955 Colorectal Cancer Screening 1955 FIT - COLON CA SCREENING 1953 FLEX SIG - COLON CA SCREENING 1955 MEDICARE AWV 12 MONTHS 1953 HEPATITIS C SCREENING 07/04/1971 DTAP/TDAP/TD VACCINES (1 - Tdap) 1972 PNEUMOCOCCAL VACCINE 50+ (1 of 1 - PCV) 2003 ZOSTER VACCINE (1 of 2) 2003 SCREENING FOR DIABETES 10/17/2018 MAMMOGRAM 11/13/2020 11/13/2018, 10/06/2018 COVID-19 VACCINE (1 - 2023-2 5 season) 2024 INFLUENZA VACCINE (#1) 2024 04/07/2015 DEPRESSION SCREENING 06/27/2024 Respiratory Syncytial Virus (RSV) Vaccine Pt: or over 60 yrs (1 - 1-dose 75+ series) 2028 HEPATITIS B VACCINE Aged Out No longe r eligible based on patient's age to complete this topic HIB VACCINE Aged Out No longer eligi ble based on patient's age to complete this topic HPV VACCINE Aged Out No longer eligi ble based on patient's age to complete this topic MENINGOCOCCAL (Group B) VACCINE SHARED DECISION-MAKING Aged Out No longer eligible based on patient's age to complete this topic MENINGOCOCCAL GROUPS A/C/Y/W VACCINE Aged Out No longer eligible b ased on patient's age to complete this topic Care Teams Flat Lock Machine Operator Relationship Specialty Start Date End Date Joy Reed APRN-REYES [address] [address] PCP - General 10/17/18
--- OUTSIDE RECORDS SUMMARY | 2024-09-17 14:09 | XMS_ITS | Clinical Summary ---
Author Organization [facility] Administrative Offices Address [address] [place] [address] Care Team Providers Care Vice President Underwriting Name Role Phone Mimi Verma MD Primary Care Provider [phone] Allergies Active Allergy Reactions Criticality Noted Date Comments Sulfa (Sulfonamide Antibiotics) Hives High 06/27 Medications rabeprazole (ACIPHEX) 20 mg Oral TbEC Take 20 mg by mouth daily. Active FLUoxetine (PROZAC) 10 mg Oral capsule Take 20 mg by mouth daily. Active folic acid (FOLVITE) 400 mcg Tablet Take 400 mcg by mouth daily. Active clindamycin HCl (CLEOCIN) 300 mg Capsule Take 3 tablets 1 hour prior to procedure.. 3 Capsule 2 11/01/2018 Active Active Problems Problem Noted Date Diagnosed Date Primary localized osteoarthrosis, lower leg 03/27 Social History Tobacco Use Types Packs/Day Years Used Date Smoking Tobacco: Never Alcohol Use Standard Drinks/Week Comments No 0 (1 standard drink = 0.6 oz pur e alcohol) Comments No Sex and Gender Information Value Date Recorded Sex Assigned at Not on file Legal Sex Female 5:25 AM WORK FORCE ADVISOR Gender Identity Not on file Sexual Orientation Not on file Last Filed Vital Signs Vital Sign Reading Time Taken Comments Blood Pressure 114/61 04/08/2011 6:29 AM CDT Pulse 79 04/08/2011 6:29 AM CDT Temperature 36.9 C (98.5 F) 04/08/2011 6:29 AM CDT Respiratory Rate 16 04/08/2011 6:29 AM CDT Oxygen Saturation 96% 04/08/2011 6:29 AM CDT Inhaled Oxygen Concentration - - Weight 108 kg (238 lb) 11/01/2018 11:10 AM CDT Height 165.1 cm (5' 5 ) 11/01/2018 11:10 AM CDT Body Mass Index 39.61 11/01/2018 11:10 AM CDT Plan of Treatment Health Maintenance Due Date Last Done Comments DTAP/TDAP/TD VACCINES (1 - Tdap) 1972 BREAST CANCER SCREENING 1993 COLORECTAL SCREENING 1998 Colorectal Cancer Screening 1998 FIT-DNA Q 3 years 1998 FIT/FOBT Q 1 year 1998 Flex Sig/CT Colonography Q 5 years 1998 ZOSTER VACCINE (1 of 2) 2003 PNEUMOCOCCAL VACCINE 50+ YEARS (2 of 2 - PCV) 08/30/19 14 08/29/2012 OSTEOPOROSIS SCREENING 2018 INFLUENZA VACCINE (#1) 2024 04/07/2015 RSV VACCINE (60+ or ) (1 - 1-dose 75+ series) 2028 Medical Devices Implanted Type Area Physiotherapist'S Assistant Device Identifier Shelf Expiration Date Model / Serial / Lot Log [id number] - Cement - 1 - Cement [place] G-Hv 40g [id number] Implanted:Qty: 1 on 07/30/2010 at [facility] Cement Right: Knee [employer] 12/26/2011 [id number] / / [id number] Log [id number] - Cement - 1 - Cement [place] G-Hv 40g [id number] Implanted:Qty: 1 on 04/05/2011 at [facility] Cement Left: Knee [employer] 08/24/2012 [id number] / / [id number] Description:liquid ref [id number] 07-31, Exp 2012-12 Log [id number] - Biomet Gentel Biosciencesguard Complete Knee System - 1 - Comp Fem Vngrd Cr Intrlk Rt 65mm [id number] Implanted:Qty: 1 on 07/30/2010 at [facility] Knee Right: Knee [employer] 04/27/2020 [id number] / / [id number] Log [id number] - Biomet Vanguard Complete Knee System - 1 - Plate Tib Cocr Finned 75mm [id number] Implanted:Qty: 1 on 07/30/2010 at [facility] Knee Right: Knee [employer] 03/27/2020 [id number] / / [id number] Bearing Tib Vngrd Epoly Cr [id number] Implanted:Qty: 1 on 07/30/2010 at [facility] Knee Right: Knee [employer] 04/27/2015 [id number] / / [id number] Description:Epoly bearing is not part of total knee cap pricing,will be charged separately. Log [id number] - Biomet Vanguard Complete Knee System - 1 - Comp Fem Vngrd Cr Intrlk Lt 65mm [id number] Implanted:Qty: 1 on 04/05/2011 at [facility] Knee Left: Knee [employer] 02/24/2021 [id number] / / [id number] Log [id number] - Biomet Vanguard Complete Knee System - 1 - Stem Comp Primary Finned [id number] Implanted:Qty: 1 on 04/05/2011 at [facility] Knee Left: Knee [employer] 07/27/2020 [id number] / / [id number] Description:use revision par t due to tibial defect.and is not part of total knee cap pricing.will be charged separately. Log [id number] - Biomet Vanguard Complete Knee System - 1 - Tray Tib Intlk Ave 71mm [id number] Implanted:Qty: 1 on 04/05/2011 at [facility] Knee Left: Knee [employer] 01/24/2021 [id number] / / [id number] Description:used revision pa rt due to tibial defect,and is not part of total knee cap pricing,will be charged separately. E-Poly Implanted:Qty: 1 on 04/05/2011 at [facility] Left: Knee [employer] 03/26/2016 [id number] / / [id number] Description:Epoly bearing is not part of total knee cap pricing,will be charged separately. [place] [address] [address] OPTIONS PPO [id number] Advance Directives For more information, please contact: [phone] * Full Code (Latest Code Status on File) Date Activated Date Inactivated Comments 04/05/2011 12:13 PM 04/08/2011 5:06 PM * Full Code Date Activated Date Inactivated Comments 04/05/2011 7:54 AM 04/05/2011 12:13 PM * Full Code Date Activated Date Inactivated Comments 04/05/2011 5:42 AM 04/05/2011 7:54 AM * Full Code Date Activated Date Inactivated Comments 12/17/2010 12:43 PM 12/17/2010 8:13 PM * Full Code Date Activated Date Inactivated Comments 12/17/2010 11:26 AM 12/17/2010 12:43 PM Care Teams Vice President Underwriting Relationship Specialty Start Date End Date Mimi Verma MD [address] [address] PCP - General 06/13/15
--- OUTSIDE RECORDS SUMMARY | 2024-09-17 14:09 | XMS_ITS | Clinical Summary ---
Author Organization [facility] [address] Address [address] [place] [address] Phone Care Team Providers Care Manager Technical Sales Name Role Phone Allen Carrasco MD Unavailable [phone] Tello Avelar Primary Care Provider + Allergies Active Allergy Reactions Criticality Noted Date Comments Diphenhydramine Hcl Hives High 10/20/2018 Reaction: hives, , 10/20/18 pt denies allergy to diphenhydramine. Sulfa (Sulfonamide Antibiotics) Hives High Reaction: hives, , Sulfanilamide Medications multivit-minera ls-ferrous fum (MULTI VITAMIN) 9 mg iron/15 mL liquid take 1 by Oral route every day 0 0 03/19/2013 Active omega 9-whw-tmk-fish oil (FISH OIL) 100-160-1,000 mg capsule take [...] minutes at weeks 0 and 4, then z9nkvso 02/08/2019 Active omeprazole (PriLOSEC) 20 mg capsule [...] try to get in with derm and/or inspector rubber stamp die if urticaria persists. I do not think [...] 04/13/2019 Assessment & Plan (05/15/2019 5:21 PM SHANK CUTTER): Improved with time/valtrex. Possible shingles. I do [...] 1.7% Assessment & Plan (07/19/2024 12:46 PM SHANK CUTTER): BMD 12/27/19: lumbar spine -1.6, hip -1.2 [...] 03/20 Assessment & Plan (07/21/2023 1:33 PM SHANK CUTTER): BMD 12/27/19: lumbar spine -1.6, hip -1.2 FRAX 6.9, 0.1 BMD 03/18: lumbar spine -2.2, L femoral neck -1.7, R femoral neck -0.7. FRAX 12% and 1.7% Some worse this year but still low FRAX score. Continue calcium and vit D Assessment & Plan (05/27/2022 1:18 PM SHANK CUTTER): BMD 12/27/19: lumbar spine -1.6, hip -1.2 [...] 01/15 Assessment & Plan (08/27/2021 1:29 PM SHANK CUTTER): BMD 12/27/19: lumbar spine -1.6, hip -1.2 [...] yrs Assessment & Plan (05/15/2020 1:36 PM SHANK CUTTER): BMD 12/27/19: lumbar spine -1.6, hip -1.2 [...] able Assessment & Plan (08/16/2019 1:37 PM SHANK CUTTER): Osteopenia -1.8 spine in 07/2017. Will give order to repeat bmd Assessment & Plan (11/10/2018 1:08 PM CDT): Osteopenia -1.8 spine in 2018 Assessment & Plan (08/10/2018 1:26 PM SHANK CUTTER): Osteopenia -1.8 spine in 2018 Assessment & Plan (04/25/2018 5:10 PM CDT): Osteopenia -1.8 spine in 2018 High risk medications (not anticoagulants) long- term use 01/21/2017 Overview (02/18/2020): Neg quantiferon 02/13 Neg cxr /20 Neg hepatitis 8/19 Assessment & Plan (07/19/2024 12:45 PM SHANK CUTTER): Quant gold neg 05/14 cxr neg 20 Neg hepatitis 8/19 May do labs j0jxzgfd. Vaccine recommendations: yearly flu shot - not yet done She had in 2012, got a booster in 2019. Had a dose of pudnnii00. utd tdap. utd shingrix. New COVID vaccine 04/18. Hasn't had RSV vaccine yet. utd colonoscopy in 10/15. utd mammograms. Assessment & Plan (04/19/2024 11:02 AM CDT): Quant gold neg 11/18 cxr neg 7/20 Neg hepatitis 8/19 May do labs w2lseabu. Vaccine recommendations: yearly flu shot - planned for 05/20. She had iojpyponw59 in 2013, got a booster in 2019. Had a dose of psibjmj88. utd tdap. utd shingrix. New COVID vaccine 04/18. Hasn't had RSV vaccine yet. utd colonoscopy in 10/15. utd mammograms. Assessment & Plan (01/19/2024 9:53 AM CDT): Quant gold neg 05/14 cxr neg 7/20 Neg hepatitis 8/19 May do labs l2bmyiwq. Vaccine recommendations: yearly flu shot utd. She had ngoduqeph36 in 2013, got a booster in 2019. Had a dose of . utd tdap. utd shingrix. New COVID vaccine 04/18. Hasn't had RSV vaccine yet. utd colonoscopy in 10/15. utd mammograms. Assessment & Plan (10/20/2023 10:24 AM CDT): Quant gold neg 05/14 cxr neg 7/20 Neg hepatitis 8/19 May do labs n7hfduzw. Vaccine recommendations: yearly flu shot utd. She had in 2013, got a booster in 2019. Had a dose of ryuvgvw70. utd tdap. utd shingrix. New COVID vaccine 04/18. Hasn't had RSV vaccine yet. utd colonoscopy in 10/15. utd mammograms. Assessment & Plan (07/21/2023 10:29 AM SHANK CUTTER): Quant gold neg 05/14 cxr neg 7/20 Neg hepatitis 8/19 May do labs k6qepaic. Vaccine recommendations: yearly flu shot utd. She had eyqhxqccq24 in 2013, got a booster in 2019. Had a dose of axzaboy50. utd tdap. utd shingrix. New COVID vaccine 04/18. Discussed RSV vaccine and she is eligible, will need script for pharmacy. utd colonoscopy in 10/15. utd mammograms. Assessment & Plan (04/19/2023 11:08 AM CDT): Quant gold neg 18 cxr neg 7/20 Neg hepatitis 8/19 May do labs y2reejzn. Vaccine recommendations: yearly flu shot utd. She had hieltmrbd23 in 2013, got a booster in 2019. Had a dose of decpiyu76. utd tdap. utd shingrix. New COVID vaccine 04/18 utd colonoscopy in 10/15. utd mammograms. Assessment & Plan (01/20/2023 10:32 AM CDT): Quant gold neg 18 cxr neg 7/20 Neg hepatitis 8/19 May do labs y9rwbkyl. Vaccine recommendations: yearly flu shot utd. She had in 2013, got a booster in 2019. Had a dose of dnnhjok88. utd tdap. utd shingrix. Received COVID vaccines and 3rd dose. utd colonoscopy in 10/15. utd mammograms. Assessment & Plan (09/24/2022 12:18 PM CDT): Quant gold neg 18 cxr neg /20 Neg hepatitis 819 May do labs n1ovqfec. Vaccine recommendations: yearly flu shot utd. She had orcmxijar46 in 2013, got a booster in 2019. Had a dose of qbvtygy86. utd tdap. utd shingrix. Received COVID vaccines and 3rd dose. utd colonoscopy in 10/15. utd mammograms. Assessment & Plan (05/27/2022 1:14 PM SHANK CUTTER): Quant gold neg 18 cxr neg /20 Neg hepatitis 8/19 May do labs d0clvzbi. Vaccine recommendations: yearly flu shot utd. She had plyyqrylj36 in 2013, got a booster in 2019. Had a dose of . utd tdap. utd shingrix. Received COVID vaccines and 3rd dose. utd colonoscopy in 10/15. utd mammograms. Assessment & Plan (02/25/2022 12:58 PM CDT): Quant gold neg 11/18 cxr neg 7/20 Neg hepatitis 8/19 May do labs o2vmtzin. Vaccine recommendations: yearly flu shot utd. She had mumzvaczd66 in 2013, got a booster in 2020. Had a dose of hbtugdp58. utd tdap. utd shingrix. Received COVID vaccines and 3rd dose. utd colonoscopy in 10/15. utd mammograms. Assessment & Plan (11/26/2021 1:11 PM CDT): Quant gold neg 11/18 cxr neg 7/20 Neg hepatitis 8 May do labs p3bixoms. Vaccine recommendations: yearly flu shot utd. She had chwrsrnin14 in 2013, got a booster in 2020. Had a dose of qwbewlo59. utd tdap. utd shingrix. Received COVID vaccines and 3rd dose. utd colonoscopy in 10/15. utd mammograms. Assessment & Plan (08/27/2021 1:29 PM SHANK CUTTER): Quant gold neg 11/18 cxr neg 7/20 Neg hepatitis 8 May do labs t1euhjxv. Vaccine recommendations: yearly flu shot utd. She had aenrouotr14 in 2013, got a booster in 2020. Had a dose of oxzztky50. utd tdap. utd shingrix. Received COVID vaccines and 3rd dose. utd colonoscopy in 10/15. utd mammograms. Assessment & Plan (05/28/2021 1:50 PM SHANK CUTTER): Quant gold neg 11/18 cxr neg 7/20 Neg hepatitis 819 May do labs q1gyvpuy. Vaccine recommendations: yearly flu shot utd. She had in 2013, got a booster in 2020. Had a dose of uoxuguv92. utd tdap. utd shingrix. Received COVID vaccines and 3rd dose. utd colonoscopy in 10/15. utd mammograms. Assessment & Plan (02/19/2021 1:09 PM CDT): Quant gold neg 11/18 cxr neg 7/20 Neg hepatitis 8/19 May do labs r1brzoct. Vaccine recommendations: yearly flu shot. She had ttrcjfxiq31 in 2013, got a booster in 2020. Had a dose of yjjzbuy07. utd tdap. utd shingrix. Received COVID vaccine. May get booster. utd colonoscopy in 10/15. utd mammograms. Assessment & Plan (11/20/2020 1:39 PM CDT): Quant gold neg 11/18 cxr neg 7/20 Neg hepatitis 8/19 May do labs w4mofcbf. Vaccine recommendations: yearly flu shot. She had ecbqnbqki52 in 2013, got a booster in 2020. Had a dose of . utd tdap. utd shingrix. Received COVID vaccine. utd colonoscopy in 10/15. utd mammograms. Assessment & Plan (08/21/2020 6:52 PM SHANK CUTTER): Quant gold neg 11/18 cxr neg 7/20 Neg hepatitis 8/19 May do labs z6maquad. Vaccine recommendations: yearly flu shot. She had cazdtmfjq92 in 2013, got a booster in 2020. Had a dose of seulgka07. utd tdap. utd shingrix. Receiving COVID vaccine. Assessment & Plan (05/15/2020 1:32 PM SHANK CUTTER): Quant gold neg 11/18 cxr neg 7/20 Neg hepatitis 8/19 May do labs n9bsrdgt. Vaccine recommendations: yearly flu shot. She had hfyxbmjje76 in 2013, got a booster in 2020. Had a dose of . utd tdap. utd shingrix. Assessment & Plan (02/15/2020 2:36 PM CDT): Quant gold neg 11/18 cxr neg 7/20 Neg hepatitis 8/19 May do labs m8bxekma. Vaccine recommendations: yearly flu shot. She had in 2013, got a booster in 2020. Had a dose of . utd tdap. utd shingrix. Assessment & Plan (11/15/2019 1:24 PM CDT): Quant gold neg 11/18 cxr neg 8/18. Has order to repeat Neg hepatitis 819 May do labs t4jzjrop. Vaccine recommendations: utd flu shot. She had rvialfvwr38 in 2012. Had a dose of . May have booster for wvlakgcje46. utd tdap. utd shingrix. Assessment & Plan (08/16/2019 1:34 PM SHANK CUTTER): Quant gold neg 11/18 cxr neg 8/18 Neg hepatitis 819 May do labs s2uqrjco. Vaccine recommendations: utd flu shot. She had zgbeuvnmw57 in 2013. Had a dose of cqunxpm40. May have booster for tyhpxngyz41. utd tdap. utd shingrix. Assessment & Plan (05/15/2019 1:05 PM SHANK CUTTER): Quant gold neg 11/18 cxr neg 8/18 Neg hepatitis 819 Standing order is good from 10/13 through 04/14. May do labs p8viwmtp. Vaccine recommendations: utd flu shot. She had cwmoqelfq96 in 2012. Had a dose of clyofnq35. May have booster for xorfaphbz05. utd tdap. May have Shingrix. Assessment & Plan (04/13/2019 8:38 AM CDT): Quant gold neg 11/18 cxr neg 8/18 Neg hepatitis 819 Standing order is good from 10/13 through 04/14. May do labs g7euiqec. Vaccine recommendations: utd flu shot. She had wuzhppvyc22 in 2012. Had a dose of lkrowku84. May have booster for awstdfcwf59. utd tdap. May have Shingrix. Assessment & Plan (02/08/2019 2:10 PM CDT): Quant gold neg 11/18 cxr neg 8/18 Standing order is good from 10/13 through 04/14. May do labs i4zottbw. Vaccine recommendations: utd flu shot. She had wsijbsdal18 in 2013. Had a dose of gugagyu87. May have booster for rivqyiutu03. utd tdap. May have Shingrix. Assessment & Plan (11/10/2018 4:32 PM CDT): Quant gold neg 11/18 cxr neg 8/18 Standing order is good from 10/13 through 04/14. May do labs h5zctfhw. Vaccine recommendations: utd flu shot. She had ipldvdubf55 in 2012. Should go for Gptirql90 now. At least 8 weeks later get booster of tokorpapc48 (since immune compromised). Also inquire about availability of Shingrix and may have this. Check with pcp about Tdap status. Hold mtx for 2 weeks following dose of vaccine. Assessment & Plan (08/10/2018 1:48 PM SHANK CUTTER): Quant gold neg 05/14 cxr neg 8/18 Standing order is good from 04/13 through 10/13. May do labs l0zclnkt. Reviewed vaccine recommendations with pt. utd flu shot. She had cxzsxkfis63 in 2012. Should go for Abmvtfc30 now. At least 8 weeks later get booster of bmmepsidi11 (since immune compromised). Also inquire about availability of Shingrix and may have this. Check with pcp about Tdap status. Hold mtx for 2 weeks following dose of vaccine. Assessment & Plan (04/24/2018 4:47 PM CDT): Quant gold neg 12/17. cxr neg 8/18 Standing order is good from 04/13 through 10/13 Assessment & Plan (01/23/2018 10:45 AM CDT): Quant gold neg 12/17. cxr neg 8/17 Standing order is good from 10/12- 04/13 Assessment & Plan (10/21/2017 11:14 AM CDT): Quant gold neg 12/17. cxr neg 8/17 Standing order is good from 10/12- 04/13 Assessment & Plan (07/21/2017 11:22 AM SHANK CUTTER): Quant gold neg 12/17. Assessment & Plan (04/21/2017 9:31 PM CDT): neg quantiferon 11/16 neg cxr 8/17 utd flu and pneumovax Assessment & Plan [...] mtx Assessment & Plan (07/19/2024 12:45 PM SHANK CUTTER): cdai = 3, remission Changed from Humira to Simponi Aria due to Medicare several years ago and continues to do well overall. Plan to continue with Simponi Aria f7alycv. Continue mtx 15mg weekly. Continue routine labs. F/u 3 months. Assessment & Plan (04/19/2024 11:02 AM CDT): cdai = 0, remission Changed from Humira to Simponi Aria due to Medicare several years ago and continues to do well overall. Plan to continue with Simponi Aria w2lgror. Continue mtx 15mg weekly. Continue routine labs. F/u 3 months. Assessment & Plan (01/19/2024 3:03 PM CDT): cdai = 0, remission Changed from Humira to Simponi Aria due to Medicare several years ago and continues to do well overall. Plan to continue with Simponi Aria a3ttxac. Continue mtx 15mg weekly. Continue routine labs. F/u 3 months. Assessment & Plan (10/20/2023 10:24 AM CDT): cdai = 1, remission Changed from Humira to Simponi Aria due to Medicare several years ago and continues to do well overall. Plan to continue with Simponi Aria n2smxjf. Continue mtx 15mg weekly. Continue routine labs. F/u 3 months. Assessment & Plan (07/21/2023 1:33 PM SHANK CUTTER): cdai = 1, remission Changed from Humira to Simponi Aria due to Medicare several years ago and continues to do well overall. Plan to continue with Simponi Aria j8ztsok. Continue mtx 15mg weekly. Continue routine labs. F/u [address] Carrasco. Assessment & Plan (04/19/2023 11:07 AM CDT): cdai = 1, remission Changed from Humira to Simponi Aria due to Medicare and continues to do well overall. Plan to continue with Simponi Aria x8xpycy. Continue mtx 15mg weekly. Continue routine labs. F/u 3 months. Assessment & Plan (01/20/2023 11:20 AM CDT): cdai = 0, remission Changed from Humira to Simponi Aria due to Medicare and continues to do well overall. Plan to continue with Simponi Aria x8gzgew. Continue mtx 15mg weekly. Continue routine labs. F/u [address] Almaraz. Assessment & Plan (09/24/2022 1:59 PM CDT): cdai = 1, remission Changed from Humira to Simponi Aria due to Medicare and continues to do well overall. Plan to continue with Simponi Aria g7hctzh. Continue mtx 15mg weekly. Continue routine labs. F/u 3 months. Assessment & Plan (05/27/2022 1:14 PM SHANK CUTTER): cdai = , low activity/remission Changed from Humira to Simponi Aria due to Medicare and continues to do well overall. Plan to continue with Simponi Aria f7ynjao. Continue mtx 15mg weekly. Continue routine labs. F/u 3 months. Assessment & Plan (02/25/2022 2:50 PM CDT): cdai = 0, low activity/remission Changed from Humira to Simponi Aria due to Medicare and continues to do well overall. Plan to continue with Simponi Aria t2lnclz. Continue mtx 15mg weekly. Continue routine labs. F/u 3 months. Assessment & Plan (11/26/2021 4:50 PM CDT): cdai = 4, low activity Changed from Humira to Simponi Aria due to Medicare and continues to do well overall. Plan to continue with Simponi Aria x3tzjbe. Continue mtx 15mg weekly. Continue routine labs. F/u 3 months. Assessment & Plan (08/27/2021 1:48 PM SHANK CUTTER): cdai = 2, remission Changed from Humira to Simponi Aria due to Medicare and continues to do well overall. Plan to continue with Simponi Aria h2abloh. Continue mtx 15mg weekly. Continue routine labs. F/u 3 months. Assessment & Plan (05/28/2021 1:52 PM SHANK CUTTER): cdai = 3, remission Changed from Humira to Simponi Aria due to Medicare and continues to do well overall. Plan to continue with Simponi Aria l3erlut. Continue mtx 15mg weekly. Continue routine labs. F/u 3 months. Assessment & Plan (02/19/2021 1:11 PM CDT): cdai = 1, remission Changed from Humira to Simponi Aria due to Medicare and continues to do well overall. Plan to continue with Simponi Aria w0hstol. Continue mtx 15mg weekly. Continue routine labs. F/u 3 months. Assessment & Plan (11/20/2020 1:41 PM CDT): cdai = 0, remission Changed from Humira to Simponi Aria due to Medicare and continues to do well overall. Plan to continue with Simponi Aria b6okkgw. Continue mtx 15mg weekly. Continue routine labs. F/u 3 months. Assessment & Plan (08/21/2020 6:51 PM SHANK CUTTER): cdai = 0, remission Changed from Humira to Simponi Aria due to Medicare and continues to do well overall. Plan to continue with Simponi Aria o4jtcrz. Continue mtx 15mg weekly. Continue routine labs. F/u 3 months. utd flu shot. utd ytqairf35 and shingrix. Had booster of xiofftpmm57 in 08/16. Had covid vaccine. Advised to hold mtx for 1 week following vaccine administration. Assessment & Plan (05/15/2020 1:35 PM SHANK CUTTER): cdai = 2, remission Changed from Humira to Simponi Aria due to Medicare and continues to do well overall. Plan to continue with Simponi Aria y0dwdey. Continue mtx 15mg weekly. Continue routine labs via standing order. F/u 3 months. utd flu shot. utd and shingrix. Had booster of ghhjmvumn33 in 08/16. Assessment & Plan (02/15/2020 2:35 PM CDT): cdai = 3, remission Changed from Humira to Simponi Aria due to Medicare. Plan to continue with Simponi Aria s6qadhp. Continue mtx. utd labs. She is asking if she can get her labs done when here for infusions, h4huteo. I put in a standing order for this. F/u 3 months. utd flu shot. utd ymjzldp00 and shingrix. Had booster of tshdsobop88 in 08/16. Assessment & Plan (11/15/2019 1:24 PM CDT): cdai = 2, remission Changed from Humira to Simponi Aria due to Medicare. Plan to continue with Simponi Aria k3vwprz. Continue mtx. utd labs. Reviewed recent labs which were normal. Continue every 3 months. F/u 3 months. utd flu shot. To get booster of bdrsfsuvy69. utd jfleuvt83 and shingrix. Assessment & Plan (08/16/2019 1:38 PM SHANK CUTTER): cdai = 0 Changed from Humira to Simponi Aria due to Medicare. Plan to continue with Simponi Aria y4sydso. Continue mtx. utd labs. Will give order to do labs again in 3 months. F/u 3 months. utd flu shot. To get booster of coouacrah90. utd bxtieaw31 and shingrix. Assessment & Plan (05/15/2019 1:19 PM SHANK CUTTER): cdai = 3 Recently changed from Humira to Simponi Aria due to Medicare. Plan to continue with Simponi Aria t3uketa. Continue mtx. utd labs. F/u 3 months. utd flu shot. To get booster of gntpcitqe50 and shingrix. Assessment & Plan (04/13/2019 4:36 PM CDT): Recently changed from Humira to Simponi Aria due to Medicare. Has a rash that started after simponi but I do not feel it is a reaction. See below. Will still plan to continue with Simponi Aria t1yyzhh. Continue mtx. utd labs. Keep next visit for 1 month. Assessment & Plan (02/08/2019 2:08 PM CDT): cdai = 3 Doing very well on mtx and humira at this time. Due to starting Medicare soon will plan to change to Simponi aria when out of her current supply of Humira. utd flu shot. utd labs. May do standing order j8eitljv since stable. f/u 3 months. Assessment & Plan (11/10/2018 4:31 PM CDT): cdai = 3 Doing very well on mtx and humira at this time. Will cont present meds. utd flu shot. utd labs. May do standing order k7tcgsfl since stable. f/u 3 months. She will be going on Medicare soon when her retires and we may try changing to joanie larry at that time for better coverage. Assessment & Plan (08/10/2018 1:40 PM SHANK CUTTER): cdai = 5 Doing very well on mtx and humira at this time. Will cont present meds. utd flu shot. utd labs. May do standing order m4puohlj since stable. f/u 3 months. Assessment & [...] months Assessment & Plan (07/21/2017 11:21 AM SHANK CUTTER): cdai 3. Doing very well on mtx [...] from 10/10. Will repeat. f/u 3 months. Encounters Date Type Department Care Team Description 07/26/2024 Orders Only [facility] [address] [place] [phone] Ange Dempsey PA Osteopenia of multiple sites (Primary Dx) 07/26/2024 Telephone [facility] [address] [place] [phone] Nanette Bocanegra 07/19/2024 10:30 AM SHANK CUTTER Office Visit [address] [phone] Ange Dempsey PA Seropositive rheumatoid arthritis of multiple sites (HCC) (Primary Dx); High risk medications (not anticoagulants) long-term use; Osteopenia of multiple sites from Last 3 Months Immunizations Immunization Administration Dates Next Due Influenza, Quadrivalent, Apple l Culture-based MDCK, Antibiotic Free, Intramuscular 04/25/2018 Influenza, Quadrivalent, Hig h Dose, Preservative Free, Intrr 03/03/2020 Influenza, Trivalent, Adjuvanted, Intramuscular 05/15/2019 Influenza, Trivalent, IM (MDV) 04/07/2015 Influenza, Unspecified 04/15/2022 Pfizer Sars-Cov-2 Bivalent Vaccination (12+ YRS) 04/15/2022 Pneumococcal Conjugate PCV 13 08/17/2018 Pneumococcal Polysaccharide PPV23 08/17/2019,10/2012 Tdap 06/29/2016 ZOSTER LIVE 04/27/2012 ZOSTER Recombinant 08/03/2019,05/15/2019 Surgical History Surgery Date Site/Laterality Comments OTHER SURGICAL HISTORY 06/27/2005 - 06/26/2006 lt wrist trauma/ligamental tear: Lt wrist ligament repair OTHER SURGICAL HISTORY 06/27/2010 - 06/26/2011 bilateral TKA CHOLECYSTECTOMY Cholecystectomy HEMORRHOID SURGERY Hemorrhoidectomy KNEE ARTHROPLASTY 06/27/2010 - 06/26/2011 Knee replacement CARPAL TUNNEL RELEASE Carpal tunnel release TOTAL ABDOMINAL HYSTERECTOMY W/ BILATERAL SALPINGOOPHORECTOMY Hysterectomy, total abdominal, BSO BREAST BIOPSY 11/13/2018 Left Medical History Medical History Date Comments Hx Other Medical 2005 lt wrist trauma /ligamental tear Gastric ulcer stomach ulcer Hx Other Medical sinus problems Hx Other Medical hemorroid Hx Other Medical Headache, migra ine Anxiety disorder Anxiety Depression Depression Family History Medical History Relation Name Comments Other Father alcoholic/liver problems; Cause of : alcoholic/liver problems Stomach cancer Father Breast cancer Father's Sister Ovarian cancer Mother Cancer -ovari an; Cause of : Cancer -ovarian Ovarian cancer Mother's Sister Ovarian cancer Other Family histor y of Cancer, ovarian; Relation Name Status Comments Father Father's Sister Mother Mother's Sister Other Social History Tobacco Use Types Packs/Day Years Used Date Smoking Tobacco: Never Smokeless Tobacco: Never Alcohol Use Standard Drinks/Week Comments Yes 0 (1 standard drink = 0.6 oz pur e alcohol) socially Comments No Sex and Gender Information Value Date Recorded Sex Assigned at Not on file Legal Sex Female 7:17 AM SHANK CUTTER Gender Identity Female 02/22/2021 1:14 PM CDT Sexual Orientation Not on file Obstetrics History Last Filed Vital Signs Vital Sign Reading Time Taken Comments Blood Pressure 120/76 07/19/2024 10:24 AM SHANK CUTTER Pulse 73 07/19/2024 10:24 AM SHANK CUTTER Temperature 36.6 C (97.8 F) 08/27/2021 1:22 PM SHANK CUTTER Respiratory Rate - - Oxygen Saturation 96% 07/19/2024 10:24 AM SHANK CUTTER Inhaled Oxygen Concentration - - Weight 104.3 kg (230 lb) 07/19/2024 10:24 AM SHANK CUTTER Height 165.1 cm (5' 5 ) 07/19/2024 10:24 AM SHANK CUTTER Body Mass Index 38.27 07/19/2024 10:24 AM SHANK CUTTER Plan of Treatment Health Maintenance Due Date Last Done Comments Colon Cancer Screening-Colonoscopy 1955 Depression Screening 1955 Fall Risk Assessment 1955 Osteoporosis Screening-Bone Density Scan 1955 Hepatitis B Screening 1971 Well Visit 65+ 2018 Covid-19 Vaccine (2 - Pfizer risk series) 05/06/2022 04/15/2022 Influenza Vaccine (#1) 2024 2, 03/11/2020, 03/03/2020, Additional history exists Breast Cancer Screening-Mammogram 03/22/2025 03/22/2024, 03/15/2023, 02/18/2022, Additional history exists DTaP/Tdap/Td Vaccine (2 - Td or Tdap) 06/29/2026 06/29/2016 Hepatitis C Screening Completed 02/16/2019 Zoster Vaccine Completed 08/03/2019, 04/27, 04/27/2012 Pneumococcal vaccine 65+ Completed 020, 08/17/2018, 08/29/2012, Additional history exists Procedures Procedure Name Priority Date/Time Associated Diagnosis Comments ERYTHROCYTE SEDIMENTATION RATE Routine 07/19/2024 10:45 AM SHANK CUTTER Seropositive rheumatoid arthritis of multiple sites (HCC) High risk medications (not anticoagulants) long-term use CRP (ACUTE PHASE) Routine 07/19/2024 10: 45 AM SHANK CUTTER Seropositive rheumatoid arthritis of multiple sites (HCC) High risk medications (not anticoagulants) long-term use COMPREHENSIVE METABOLIC PANEL Routine 07/19/2024 10:45 AM SHANK CUTTER Seropositive rheumatoid arthritis of multiple sites (HCC) High risk medications (not anticoagulants) long-term use CBC WITH AUTO DIFFERENTIAL Routine 07/19/2024 10:45 AM SHANK CUTTER Seropositive rheumatoid arthritis of multiple sites (HCC) [...] CBC with auto differential (07/19/2024 10:45 AM SHANK CUTTER) WBC 7.8 3.8 - 10.8 Thousand/u L [...] [facility] Blood 07/19/2024 10:4 5 AM SHANK CUTTER 07/19/2024 10:45 AM SHANK CUTTER [facility] BLOOD ORDERABLES Fin al Result Performing Organization Address [facility] [facility] Co de Phone Number QUEST [facility] [address] [place] [address] * Erythrocyte sedimentation rate (07/19/2024 10:45 AM SHANK CUTTER) Erythrocyte sedimentation rate 14 < OR = 30 mm/h [facility] Blood 07/19/2024 10:4 5 AM SHANK CUTTER 07/19/2024 10:45 AM SHANK CUTTER Ange Littlejohn Roselyn [facility] BLOOD ORDERABLES Fin al Result Performing Organization Address [facility] de Phone Number QUEST [facility] [address] [place] [address] * CRP (acute phase) (07/19/2024 10:45 AM SHANK CUTTER) C-RP <3.0 <8.0 mg/L [facility] Blood 07/19/2024 10:4 5 AM SHANK CUTTER 07/19/2024 10:45 AM SHANK CUTTER Ange Littlejohn Roselyn YING LAB BLOOD ORDERABLES Fin al Result Performing Organization Address [facility] de Phone Number QUEST [facility] [address] [place] [address] * (ABNORMAL) Comprehensive metabolic panel (07/19/2024 10:45 AM SHANK CUTTER) Glucose 102(H) 65 - 99 mg/dL [facility] Blood 07/19/2024 10:4 5 AM SHANK CUTTER 07/19/2024 10:45 AM SHANK CUTTER us Ange [facility]ING LAB BLOOD ORDERABLES Fin al Result Performing Organization Address City/State/[facility] Co de Phone Number MIMI [facility] [address] [place] [address] * Screening Mammogram Bilateral W Ivan (03/22/2024 9:34 AM CDT) Anatomical Region Laterality Modality Breast Bilateral Mammography Narrative 03/22/2024 2:11 PM CDT Mammogram Technique: Bilateral Digital Breast Tomosynthesis, Bilateral C-view 2D Screening mammogram. Views obtained: bilateral craniocaudal and bilateral mediolateral oblique. Computer Aided Detection was performed. Mammogram Findings: The present examination has been compared to prior imaging studies performed at [facility] on 12/26/2020, 02/17/2022 and 03/15/2023. There are [...] compared to prior imaging studies performed at [facility] on 12/26/2020, 02/17/2022 and 03/15/2023. There are [...] with a HCV Nucleic Acid Amplification test ([id number]). Blood specimen (specimen) 02/16/2019 10:01 AM CDT 02/16/2019 Narrative [facility] - 02/17/2019 6:08 AM CDT Performed at: [address] [place] [id number] Food Processing Scientist: Derek Ryan PhD, Phone: [phone] Ange [facility] MICROBIOLOGY - GENER AL ORDERABLES Final Result [facility] - 01 from Last 3 Months or Most Recently Relevant to Health Maintenance Insurance MEDICARE [facility] H[facility]/PPO Address: [address] [address] [place] [address] MEDICARE MEDICARE [facility] H[facility]/PPO Address: [address] [address] [place] [address] MEDICARE MEDICARE [facility] [place] [address] MEDICARE [facility] [address] Care Teams Manager Technical Sales Relationship Specialty Start Date End Date Tello Avelar PA [facility] [place] [address] PCP - General Internal Medicine 11/17/23 Allen Carrasco MD [place] [address] Consulting Physician Rheumatology 07/19/23
--- OUTSIDE RECORDS SUMMARY | 2024-09-17 14:09 | XMS_ITS | Clinical Summary ---
Author Organization [facility] Address [address], [facility] [address] [place] [address] Phone Care Team Providers Care Road Traffic Controller Name Role Phone Derek Joy Vinod ZHOU Primary Care Provider +1- [phone] Allergies Active Allergy Reactions Criticality Noted Date Comments Sulfa Antibiotics Hives Medium 12/27/2018 Medications oxybutynin (DITROPAN) 5 MG Tablet Take 5 mg by mouth daily. Active simvastatin (ZOCOR) 20 MG Tablet Take 20 mg by mouth every evening. Active Omeprazole 20 MG Tablet Delayed Response Take by mouth daily. Active FLUoxetine (PROZAC) 40 MG Capsule Take 40 mg by mouth daily. Active folic acid (FOLVITE) 1 MG Tablet Take 1 mg by mouth daily. Active methotrexate 2.5 MG Tablet Take by mouth every 7 days 6 tabs once weekly Active Multiple Vitamin (MULTIVITAMIN PO) Take by mouth daily. Active Winifred-3 Fatty Acids (FISH OIL PO) Take by mouth daily. Active Calcium Polycarbophil (RA FIBER-TAB PO) Take by mouth. Fiber tabs, 4x daily Active Calcium Citrate-Vitamin D (CALCIUM + D PO) Take by mouth daily. Active diclofenac (VOLTAREN) 75 MG Tablet Delayed Response Take 1 Tablet by mouth nightly. 270 Tablet Active Multiple Vitamins-Minerals (PRESERVISION AREDS PO) Take by mouth daily. Active Golimumab (SIMPONI ARIA IV) by Intravenous route every 60 days. Active Active Problems Problem Noted Date Diagnosed Date Pharyngeal dysphagia 09/30/2020 Gastroesophageal reflux disease 09/30/2020 Polyp of colon 09/30/2020 History of Argueta's esophagus 09/30/2020 Immunizations Immunization Administration Dates Next Due Influenza, High-dose, Quadrivalent 03/03/2020 Influenza, Injectable, Mdck,quadrivalent,with Preservative 04/25/2018 Influenza, Injectable, Quadrivalent 02/25,05/17/2019,03/02/2018,2016,05/01/2016 Influenza, Trivalent, Adjuvanted, PF 05/15/2019 Pneumococcal PCV, Unspecifie d Formulation 06/27/2011 Zoster Vaccine Recombinant 08/03/2019,05/15/2019 Family History Medical History Relation Name Comments Ovarian Cancer Mother Heart Attack Paternal Grandmother Cerebral Palsy Sister Relation Name Status Comments Mother Paternal Grandmother Sister Social History Tobacco Use Types Packs/Day Years Used Date Smoking Tobacco: Never Smokeless Tobacco: Never Alcohol Use Standard Drinks/Week Comments Not Currently 0 (1 standard drink = 0.6 oz pur e alcohol) Sexually Active Control Partners Comments Not Currently Comments No Sex and Gender Information Value Date Recorded Sex Assigned at Not on file Legal Sex Female 11:03 PM CDT Gender Identity Not on file Sexual Orientation Not on file Last Filed Vital Signs Vital Sign Reading Time Taken Comments Blood Pressure 112/57 10/14/2020 11:22 AM CDT Pulse 62 10/14/2020 11:22 AM CDT Temperature 36 C (96.8 F) 10/14/2020 11:22 AM CDT Respiratory Rate 12 10/14/2020 11:22 AM CDT Oxygen Saturation 100% 10/14/2020 11:22 AM CDT Inhaled Oxygen Concentration - - Weight 104.3 kg (230 lb) 09/30/2020 11:00 AM CDT Height 167.6 cm (5' 6 ) 09/30/2020 11:00 AM CDT Body Mass Index 37.12 09/30/2020 11:00 AM CDT Plan of Treatment Health Maintenance Due Date Last Done Comments DEXA Bone Density 1955 Hepatitis C Virus (HCV) Screening 1955 Mammogram 1955 TdaP Immunization 1953 SARS-COV-2 Immunization (#1) 1958 Cologuard 2003 Immunochemical Fecal Occult Blood 2003 Pneumococcal Immunization (50+ years) (1 of 1 - PCV) 2003 06/27/2011 Respiratory Syncytial Virus (RSV) Immunization (Adult) (1 - Risk 60-74 years 1-dose series) 2013 Influenza Immunization (#1) 02/26/202402/25, 03/03/2020, 05/17/2019, Additional history exists Colonoscopy 10/06/2025 10/06/2020 Colorectal Cancer Screening 10/06/2025 10/06/2020 Pneumococcal Immunization Combined Discontinued 06/27/2011 Zoster Immunization Completed 08/03/2019, 9 Hepatitis B Immunization Aged Out No longer eligible based on patient's age to complete this topic Meningococcal Immunization (ACWY) Aged Out No longer eligible based on patient's age to complete this topic Rotavirus Immunization Aged Out No lo nger eligible based on patient's age to complete this [place] [address] [address] Traffic Controller Relationship Specialty Start Date End Date Joy Reed APRN PCP - General Advanced Practice Nurse 10/14/20
[2024-09-17 14:20] VITALS: PULSE 77; RESP 16; O2SAT 98
[2024-09-17 14:39] LABS: Estimated CRCL calculation 74 ml/min; Estimated Glomerular Filt Rate > 60
[2024-09-17] MEDS: FAMOTIDINE 20 MG/2 ML VIAL IV PUSH (16:11)
[2024-09-17] MEDS: BELLADONNA ALK/PHENOB ELIX 10 ML, MAG HYDROX/ALUMINUM HYD/SIMETH 30 ML, LIDOCAINE 2% VI... PO (16:11)
[2024-09-17] MEDS: PANTOPRAZOLE SODIUM IV 40 MG VIAL IV PUSH (16:11)
[2024-09-17 16:16] VITALS: BP 132/57; PULSE 86; RESP 18; O2SAT 96
[2024-09-17 16:24] LABS: Lactic Acid Reflex 1.3 mmol/L (0.7-2.0)
[2024-09-17 16:30] LABS: Alanine Aminotransferase 21 U/L (6-35); Albumin Level 4.2 g/dL (3.5-5.1); Alkaline Phosphatase 90 U/L (38-126); Anion Gap 6 mmol/L (4-12); Aspartate Amino Transferase 24 U/L (14-36); Bilirubin,Total 1.9 mg/dL (0.2-1.3); Blood Urea Nitrogen 9 mg/dL (7-17); Calcium 9.4 mg/dL (8.4-10.2); Carbon Dioxide 27 mmol/L (22-30); Chloride 102 mmol/L (98-107); Estimated CRCL calculation 90 ml/min; Estimated Glomerular Filt Rate > 60; Glucose 105 mg/dL (65-110); Lipase 41 U/L (23-300); Potassium 4.1 mmol/L (3.4-5.0); Sodium 135 mmol/L (137-145)
[2024-09-17 16:35] LABS: Troponin I < 0.012 ng/mL (0.000-0.034)
--- OUTSIDE RECORDS SUMMARY | 2024-09-17 17:17 | XMS_ITS | Clinical Summary ---
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 Gender Identity Not on file Sexual Orientation [...] series) 2028 Medical Devices Implanted Type Area Poultry Field Service Technician Device Identifier Shelf Expiration Date Model / Serial / Lot Log [id number] - Cement - 1 - Cement [place] G-Hv 40g [id number] Implanted:Qty: 1 on 07/30/2010 at [facility] Cement Right: Knee [employer] 12/26/2011 [id number] / / [id number] Log [id number] - Cement - 1 - Cement [place] G-Hv 40g [id number] Implanted:Qty: 1 on 04/05/2011 at [facility] Cement Left: Knee [employer] 08/24/2012 [id number] / / [id number] Description:liquid ref [id number] 07-31, Exp 2012-12 Log [id number] - Biomet BrightView Systemsguard Complete Knee System - 1 - Comp Fem Vngrd Cr Intrlk Rt 65mm [id number] Implanted:Qty: 1 on 07/30/2010 at [facility] Knee Right: Knee [employer] 04/27/2020 [id number] / / [id number] Log [id number] - Biomet Vanguard Complete Knee System - 1 - Plate Tib Cocr Finned 75mm [id number] Implanted:Qty: 1 on 07/30/2010 at [facility] Knee Right: Knee [employer] 03/27/2020 [id number] / / [id number] Bearing Tib Vngrd Epoly Cr [id number] Implanted:Qty: 1 on 07/30/2010 at [facility] Knee Right: Knee [employer] 04/27/2015 [id number] / / [id number] Description:Epoly bearing is not part of total knee cap pricing,will be charged separately. Log [id number] - Biomet Vanguard Complete Knee System - 1 - Comp Fem Vngrd Cr Intrlk Lt 65mm [id number] Implanted:Qty: 1 on 04/05/2011 at [facility] Knee Left: Knee [employer] 02/24/2021 [id number] / / [id number] Log [id number] - Biomet Vanguard Complete Knee System - 1 - Stem Comp Primary Finned [id number] Implanted:Qty: 1 on 04/05/2011 at [facility] Knee Left: Knee [employer] 07/27/2020 [id number] / / [id number] Description:use revision par t due to tibial defect.and is not part of total knee cap pricing.will be charged separately. Log [id number] - Biomet Vanguard Complete Knee System - 1 - Tray Tib Intlk Ave 71mm [id number] Implanted:Qty: 1 on 04/05/2011 at [facility] Knee Left: Knee [employer] 01/24/2021 [id number] / / [id number] Description:used revision pa rt due to tibial defect,and is not part of total knee cap pricing,will be charged separately. E-Poly Implanted:Qty: 1 on 04/05/2011 at [facility] Left: Knee [employer] 03/26/2016 [id number] / / [id number] Description:Epoly bearing is not part of total knee cap pricing,will be charged separately. [place] [address] [address] OPTIONS PPO [id number] Advance Directives For more information, please contact: [phone] * Full Code (Latest Code Status on [...] 11:26 AM 12/17/2010 12:43 PM Care Teams Crumb Packer Relationship Specialty Start Date End Date Mimi Verma MD [address] [address] PCP - General 06/13/15
--- OUTSIDE RECORDS SUMMARY | 2024-09-17 17:17 | XMS_ITS | Clinical Summary ---
Author Organization [facility] Address [address], [facility] [address] [place] [address] Phone Care Team Providers Care Senior Accounting Manager Name Role Phone Derek Jyo Vinod ZHOU Primary Care Provider +1- [phone] Allergies Active Allergy Reactions Criticality Noted Date [...] (MULTIVITAMIN PO) Take by mouth daily. Active Argyle-3 Fatty Acids (FISH OIL PO) Take by [...] to complete this topic [place] [address] MEDICARE Care Teams Senior Accounting Manager Relationship Specialty Start Date End Date Joy Reed APRN PCP - General Advanced Practice Nurse 10/14/20"
--- OUTSIDE RECORDS SUMMARY | 2024-09-17 17:17 | XMS_ITS | Clinical Summary ---
Author Organization [facility] Address [address] [place] [address] Care Team Providers Care Pharmacy Intake Technician Name Role Phone Joy Reed WIN[facility]IE-ADVANCED PRACTICE NURSE PSYCHOTHERAPIST Primary Care Provider + Source Comments [facility],non-owned Affiliates and Associated Physician Practices is amultiple site organization consisting of ambulatory clinics and hospital sitesin [place], [place] and [place]. This disclosure is being madepursuant to the Care Everywhere program and may not contain all information available regarding this patient. Last updated 18.[facility] Allergies Active Allergy Reactions Criticality Noted Date [...] 03/19/2013 Active Psyllium (METAMUCIL PO) 10/22/2016 Active Eads-3 Fatty Acids (FISH OIL PO) take 1 [...] age to complete this topic Care Teams Pharmacy Intake Technician Relationship Specialty Start Date End Date Joy Reed APRN-REYES [address] [address] PCP - General 10/17/18
--- OUTSIDE RECORDS SUMMARY | 2024-09-17 17:17 | XMS_ITS | Encounter Summary ---
Author Organization [facility] Address [address] [place] [address] Care Team Providers Care Family Psychologist Name Role Phone Mimi Verma MD Primary Care Provider +1- [phone] Encounter Details Date Type Department Care Team (Late st Contact Info) Description 08/10/2006 Inpatient Historical [facility] Jay Glover MD [address] [place] [address] Ayo Steele MD [address] [place] [address] Other Wrist Sprain and Strain (Primary Dx) Social History Tobacco Use Types Packs/Day Years Used Date Smoking Tobacco: Never Assessed Comments Unknown Sex and Gender Information Value Date Recorded Sex Assigned at Not on file Legal Sex Female 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
--- OUTSIDE RECORDS SUMMARY | 2024-09-17 17:18 | XMS_ITS | Referral Summary ---
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 Name Role Phone Allen Carrasco MD Unavailable Tello Avelar Primary Care Provider + Encounters Date Type Department Care Team Description 07/26/2024 Orders Only [facility] [address] [place] [phone] Ange Dempsey PA Osteopenia of multiple sites (Primary Dx) 07/26/2024 Telephone [facility] [address] [place] [phone] Nanette Bocanegra 07/19/2024 10:30 AM HALL CLEANER Office Visit [facility] [address] [place] [phone] Ange Dempsey PA Seropositive rheumatoid arthritis [...] every day 0 0 03/19/2013 Active omega 9-gil-vzb-fish oil (FISH OIL) 100-160-1,000 mg capsule take [...] minutes at weeks 0 and 4, then v3ozvlb 02/08/2019 Active omeprazole (PriLOSEC) 20 mg capsule [...] try to get in with derm and/or advanced analytics associate if urticaria persists. I do not think [...] 04/13/2019 Assessment & Plan (05/15/2019 5:21 PM HALL CLEANER): Improved with time/valtrex. Possible shingles. I do [...] 1.7% Assessment & Plan (07/19/2024 12:46 PM HALL CLEANER): BMD 12/27/19: lumbar spine -1.6, hip -1.2 [...] 03/20 Assessment & Plan (07/21/2023 1:33 PM HALL CLEANER): BMD 12/27/19: lumbar spine -1.6, hip -1.2 FRAX 6.9, 0.1 BMD 03/18: lumbar spine -2.2, L femoral neck -1.7, R femoral neck -0.7. FRAX 12% and 1.7% Some worse this year but still low FRAX score. Continue calcium and vit D Assessment & Plan (05/27/2022 1:18 PM HALL CLEANER): BMD 12/27/19: lumbar spine -1.6, hip -1.2 [...] 01/15 Assessment & Plan (08/27/2021 1:29 PM HALL CLEANER): BMD 12/27/19: lumbar spine -1.6, hip -1.2 [...] yrs Assessment & Plan (05/15/2020 1:36 PM HALL CLEANER): BMD 12/27/19: lumbar spine -1.6, hip -1.2 [...] able Assessment & Plan (08/16/2019 1:37 PM HALL CLEANER): Osteopenia -1.8 spine in 07/2017. Will give order to repeat bmd Assessment & Plan (11/10/2018 1:08 PM CDT): Osteopenia -1.8 spine in 2018 Assessment & Plan (08/10/2018 1:26 PM HALL CLEANER): Osteopenia -1.8 spine in 2018 Assessment & Plan (04/25/2018 5:10 PM CDT): Osteopenia -1.8 spine in 2018 High risk medications (not anticoagulants) long- term use 01/21/2017 Overview (02/18/2020): Neg quantiferon 02/13 Neg cxr 01/13 Neg hepatitis 8/19 Assessment & Plan (07/19/2024 12:45 PM HALL CLEANER): Quant gold neg 11/18 cxr neg 7/20 Neg hepatitis 8/19 May do labs f4ypjrge. Vaccine recommendations: yearly flu shot - not yet done She had uerxkfgro28 in 2013, got a booster in 2020. Had a dose of . utd tdap. utd shingrix. New COVID vaccine 04/18. Hasn't had RSV vaccine yet. utd colonoscopy in 10/15. utd mammograms. Assessment & Plan (04/19/2024 11:02 AM CDT): Quant gold neg 11/18 cxr neg 7/20 Neg hepatitis 8/19 May do labs j4bnpeyg. Vaccine recommendations: yearly flu shot - planned for 05/20. She had ndrnsnroy20 in 2012, got a booster in 2019. Had a dose of jxkduoj36. utd tdap. utd shingrix. New COVID vaccine 04/18. Hasn't had RSV vaccine yet. utd colonoscopy in 10/15. utd mammograms. Assessment & Plan (01/19/2024 9:53 AM CDT): Quant gold neg 1118 cxr neg 7/20 Neg hepatitis 8/19 May do labs r2rrkjok. Vaccine recommendations: yearly flu shot utd. She had ckfifgtzf43 in 2012, got a booster in 2019. Had a dose of lmdfyxd61. utd tdap. utd shingrix. New COVID vaccine 04/18. Hasn't had RSV vaccine yet. utd colonoscopy in 10/15. utd mammograms. Assessment & Plan (10/20/2023 10:24 AM CDT): Quant gold neg 11/18 cxr neg 7/20 Neg hepatitis 8/19 May do labs n3wrbbhd. Vaccine recommendations: yearly flu shot utd. She had hhvjpelef16 in 2013, got a booster in 2020. Had a dose of zsbtaiu22. utd tdap. utd shingrix. New COVID vaccine 04/18. Hasn't had RSV vaccine yet. utd colonoscopy in 10/15. utd mammograms. Assessment & Plan (07/21/2023 10:29 AM HALL CLEANER): Quant gold neg 11/18 cxr neg 7/20 Neg hepatitis 8/19 May do labs g2uexocp. Vaccine recommendations: yearly flu shot utd. She had ylrybzzfa70 in 2013, got a booster in 2019. Had a dose of . utd tdap. utd shingrix. New COVID vaccine 04/18. Discussed RSV vaccine and she is eligible, will need script for pharmacy. utd colonoscopy in 10/15. utd mammograms. Assessment & Plan (04/19/2023 11:08 AM CDT): Quant gold neg 1118 cxr neg 7/20 Neg hepatitis 8 May do labs b1crsymb. Vaccine recommendations: yearly flu shot utd. She had in 2012, got a booster in 2019. Had a dose of alfqyqb15. utd tdap. utd shingrix. New COVID vaccine 04/18 utd colonoscopy in 10/15. utd mammograms. Assessment & Plan (01/20/2023 10:32 AM CDT): Quant gold neg 11/18 cxr neg 7/20 Neg hepatitis 8/19 May do labs r2yqsobf. Vaccine recommendations: yearly flu shot utd. She had fqipelrkp63 in 2013, got a booster in 2019. Had a dose of inbjyec23. utd tdap. utd shingrix. Received COVID vaccines and 3rd dose. utd colonoscopy in 10/15. utd mammograms. Assessment & Plan (09/24/2022 12:18 PM CDT): Quant gold neg 11/18 cxr neg 7/20 Neg hepatitis 8/19 May do labs z9umbwkn. Vaccine recommendations: yearly flu shot utd. She had apisdydev99 in 2013, got a booster in 2020. Had a dose of xvgdlip43. utd tdap. utd shingrix. Received COVID vaccines and 3rd dose. utd colonoscopy in 10/15. utd mammograms. Assessment & Plan (05/27/2022 1:14 PM HALL CLEANER): Quant gold neg 11/18 cxr neg 7/20 Neg hepatitis 8 May do labs m0nadsob. Vaccine recommendations: yearly flu shot utd. She had ftdqppfuz20 in 2013, got a booster in 2020. Had a dose of . utd tdap. utd shingrix. Received COVID vaccines and 3rd dose. utd colonoscopy in 10/15. utd mammograms. Assessment & Plan (02/25/2022 12:58 PM CDT): Quant gold neg 11/18 cxr neg 7/20 Neg hepatitis 8/19 May do labs v5jukbyb. Vaccine recommendations: yearly flu shot utd. She had elqozkivo65 in 2013, got a booster in 2020. Had a dose of zlnujmq83. utd tdap. utd shingrix. Received COVID vaccines and 3rd dose. utd colonoscopy in 10/15. utd mammograms. Assessment & Plan (11/26/2021 1:11 PM CDT): Quant gold neg 11/18 cxr neg 7/20 Neg hepatitis 8/19 October do labs h0wlhusb. Vaccine recommendations: yearly flu shot utd. She had kowwgookb55 in 2013, got a booster in 2020. Had a dose of . utd tdap. utd shingrix. Received COVID vaccines and 3rd dose. utd colonoscopy in 10/15. utd mammograms. Assessment & Plan (08/27/2021 1:29 PM HALL CLEANER): Quant gold neg 11/18 cxr neg 7/20 Neg hepatitis 8/19 May do labs x8vepqaw. Vaccine recommendations: yearly flu shot utd. She had wbtzcgfwa40 in 2013, got a booster in 2020. Had a dose of syjuihm86. utd tdap. utd shingrix. Received COVID vaccines and 3rd dose. utd colonoscopy in 10/15. utd mammograms. Assessment & Plan (05/28/2021 1:50 PM HALL CLEANER): Quant gold neg 11/18 cxr neg 7/20 Neg hepatitis 8/19 May do labs q3ennvtt. Vaccine recommendations: yearly flu shot utd. She had idfcpbeej70 in 2013, got a booster in 2020. Had a dose of krhugav76. utd tdap. utd shingrix. Received COVID vaccines and 3rd dose. utd colonoscopy in 10/15. utd mammograms. Assessment & Plan (02/19/2021 1:09 PM CDT): Quant gold neg /18 cxr neg 7/20 Neg hepatitis 8/19 May do labs y9zzyxxd. Vaccine recommendations: yearly flu shot. She had vxpjfsuiz21 in 2013, got a booster in 2020. Had a dose of qacpepd47. utd tdap. utd shingrix. Received COVID vaccine. May get booster. utd colonoscopy in 10/15. utd mammograms. Assessment & Plan (11/20/2020 1:39 PM CDT): Quant gold neg 18 cxr neg 7/20 Neg hepatitis 8/19 May do labs t5pcjjwf. Vaccine recommendations: yearly flu shot. She had ntdfhulkj18 in 2013, got a booster in 2020. Had a dose of zyjhjnt89. utd tdap. utd shingrix. Received COVID vaccine. utd colonoscopy in 10/15. utd mammograms. Assessment & Plan (08/21/2020 6:52 PM HALL CLEANER): Quant gold neg 11/18 cxr neg 7/20 Neg hepatitis 8/19 May do labs f6hombwt. Vaccine recommendations: yearly flu shot. She had in 2013, got a booster in 2020. Had a dose of kdxbput96. utd tdap. utd shingrix. Receiving COVID vaccine. Assessment & Plan (05/15/2020 1:32 PM HALL CLEANER): Quant gold neg 11/18 cxr neg 7/20 Neg hepatitis 8/19 May do labs y8plhuyz. Vaccine recommendations: yearly flu shot. She had uttdbxzvz73 in 2013, got a booster in 2020. Had a dose of nwjfuaz74. utd tdap. utd shingrix. Assessment & Plan (02/15/2020 2:36 PM CDT): Quant gold neg 11/18 cxr neg 20 Neg hepatitis 8/19 May do labs z1izcexj. Vaccine recommendations: yearly flu shot. She had tkbakdyst67 in 2012, got a booster in 2019. Had a dose of imcyzns53. utd tdap. utd shingrix. Assessment & Plan (11/15/2019 1:24 PM CDT): Quant gold neg 11/18 cxr neg 8/18. Has order to repeat Neg hepatitis 02/12 May do labs h2vrobux. Vaccine recommendations: utd flu shot. She had jwytjosqa96 in 2012. Had a dose of kjbkxyo57. May have booster for gjzdvafde86. utd tdap. utd shingrix. Assessment & Plan (08/16/2019 1:34 PM HALL CLEANER): Quant gold neg 11/18 cxr neg 8/18 Neg hepatitis 8/19 May do labs q1rxhwnk. Vaccine recommendations: utd flu shot. She had pgwkymmnm26 in 2012. Had a dose of dnwfjin41. May have booster for jbwpcnmwo46. utd tdap. utd shingrix. Assessment & Plan (05/15/2019 1:05 PM HALL CLEANER): Quant gold neg 11/18 cxr neg 8/18 Neg hepatitis 8/19 Standing order is good from 10/13 through 04/14. May do labs c6kiokuw. Vaccine recommendations: utd flu shot. She had kanbvcrph16 in 2012. Had a dose of vyyjqlf50. May have booster for dguwkrkla47. utd tdap. May have Shingrix. Assessment & Plan (04/13/2019 8:38 AM CDT): Quant gold neg 11/18 cxr neg 8/18 Neg hepatitis 8/19 Standing order is good from 10/13 through 04/14. May do labs b5hpdpap. Vaccine recommendations: utd flu shot. She had xirenycfk02 in 2013. Had a dose of tprafjj06. May have booster for gzkudfzdi21. utd tdap. May have Shingrix. Assessment & Plan (02/08/2019 2:10 PM CDT): Quant gold neg 18 cxr neg 8/18 Standing order is good from 10/13 through 04/14. May do labs x3aqystu. Vaccine recommendations: utd flu shot. She had rncgnkxam89 in 2012. Had a dose of . May have booster for . utd tdap. May have Shingrix. Assessment & Plan (11/10/2018 4:32 PM CDT): Quant gold neg 18 cxr neg 818 Standing order is good from 10/13 through 04/14. May do labs q1llfgcu. Vaccine recommendations: utd flu shot. She had bdxjuyguk26 in 2012. Should go for Uyyjkao15 now. At least 8 weeks later get booster of iismniphl92 (since immune compromised). Also inquire about availability of Shingrix and may have this. Check with pcp about Tdap status. Hold mtx for 2 weeks following dose of vaccine. Assessment & Plan (08/10/2018 1:48 PM HALL CLEANER): Quant gold neg 18 cxr neg 818 Standing order is good from 04/13 through 10/13. May do labs h4ylhado. Reviewed vaccine recommendations with pt. utd flu shot. She had in 2012. Should go for Uochfyw79 now. At least 8 weeks later get booster of (since immune compromised). Also inquire about availability [...] 04/13 Assessment & Plan (07/21/2017 11:22 AM HALL CLEANER): Quant gold neg /. Assessment & Plan [...] mtx Assessment & Plan (07/19/2024 12:45 PM HALL CLEANER): cdai = 3, remission Changed from Humira to Simponi Aria due to Medicare several years ago and continues to do well overall. Plan to continue with Simponi Aria g1cibke. Continue mtx 15mg weekly. Continue routine labs. F/u 3 months. Assessment & Plan (04/19/2024 11:02 AM CDT): cdai = 0, remission Changed from Humira to Simponi Aria due to Medicare several years ago and continues to do well overall. Plan to continue with Simponi Aria p9vnijp. Continue mtx 15mg weekly. Continue routine labs. F/u 3 months. Assessment & Plan (01/19/2024 3:03 PM CDT): cdai = 0, remission Changed from Humira to Simponi Aria due to Medicare several years ago and continues to do well overall. Plan to continue with Simponi Aria l7lhbso. Continue mtx 15mg weekly. Continue routine labs. F/u 3 months. Assessment & Plan (10/20/2023 10:24 AM CDT): cdai = 1, remission Changed from Humira to Simponi Aria due to Medicare several years ago and continues to do well overall. Plan to continue with Simponi Aria b7rgpoa. Continue mtx 15mg weekly. Continue routine labs. F/u 3 months. Assessment & Plan (07/21/2023 1:33 PM HALL CLEANER): cdai = 1, remission Changed from Humira to Simponi Aria due to Medicare several years ago and continues to do well overall. Plan to continue with Simponi Aria d2bnrqq. Continue mtx 15mg weekly. Continue routine labs. F/u [address] Carrasco. Assessment & Plan (04/19/2023 11:07 AM CDT): cdai = 1, remission Changed from Humira to Simponi Aria due to Medicare and continues to do well overall. Plan to continue with Simponi Aria w1vszsk. Continue mtx 15mg weekly. Continue routine labs. F/u 3 months. Assessment & Plan (01/20/2023 11:20 AM CDT): cdai = 0, remission Changed from Humira to Simponi Aria due to Medicare and continues to do well overall. Plan to continue with Simponi Aria p7njbiv. Continue mtx 15mg weekly. Continue routine labs. F/u [address] Almaraz. Assessment & Plan (09/24/2022 1:59 PM CDT): cdai = 1, remission Changed from Humira to Simponi Aria due to Medicare and continues to do well overall. Plan to continue with Simponi Aria n8zrtmg. Continue mtx 15mg weekly. Continue routine labs. F/u 3 months. Assessment & Plan (05/27/2022 1:14 PM HALL CLEANER): cdai = , low activity/remission Changed from Humira to Simponi Aria due to Medicare and continues to do well overall. Plan to continue with Simponi Aria g1twokj. Continue mtx 15mg weekly. Continue routine labs. F/u 3 months. Assessment & Plan (02/25/2022 2:50 PM CDT): cdai = 0, low activity/remission Changed from Humira to Simponi Aria due to Medicare and continues to do well overall. Plan to continue with Simponi Aria d7lxamf. Continue mtx 15mg weekly. Continue routine labs. F/u 3 months. Assessment & Plan (11/26/2021 4:50 PM CDT): cdai = 4, low activity Changed from Humira to Simponi Aria due to Medicare and continues to do well overall. Plan to continue with Simponi Aria z8fevpr. Continue mtx 15mg weekly. Continue routine labs. F/u 3 months. Assessment & Plan (08/27/2021 1:48 PM HALL CLEANER): cdai = 2, remission Changed from Humira to Simponi Aria due to Medicare and continues to do well overall. Plan to continue with Simponi Aria u2lobkr. Continue mtx 15mg weekly. Continue routine labs. F/u 3 months. Assessment & Plan (05/28/2021 1:52 PM HALL CLEANER): cdai = 3, remission Changed from Humira to Simponi Aria due to Medicare and continues to do well overall. Plan to continue with Simponi Aria u7wvaod. Continue mtx 15mg weekly. Continue routine labs. F/u 3 months. Assessment & Plan (02/19/2021 1:11 PM CDT): cdai = 1, remission Changed from Humira to Simponi Aria due to Medicare and continues to do well overall. Plan to continue with Simponi Aria s3cghpf. Continue mtx 15mg weekly. Continue routine labs. F/u 3 months. Assessment & Plan (11/20/2020 1:41 PM CDT): cdai = 0, remission Changed from Humira to Simponi Aria due to Medicare and continues to do well overall. Plan to continue with Simponi Aria u7ajjzk. Continue mtx 15mg weekly. Continue routine labs. F/u 3 months. Assessment & Plan (08/21/2020 6:51 PM HALL CLEANER): cdai = 0, remission Changed from Humira to Simponi Aria due to Medicare and continues to do well overall. Plan to continue with Simponi Aria i5dicms. Continue mtx 15mg weekly. Continue routine labs. F/u 3 months. utd flu shot. utd mtopfxp24 and shingrix. Had booster of bgkwszfas02 in 08/16. Had covid vaccine. Advised to hold mtx for 1 week following vaccine administration. Assessment & Plan (05/15/2020 1:35 PM HALL CLEANER): cdai = 2, remission Changed from Humira to Simponi Aria due to Medicare and continues to do well overall. Plan to continue with Simponi Aria y4uolmd. Continue mtx 15mg weekly. Continue routine labs via standing order. F/u 3 months. utd flu shot. utd wmidmps71 and shingrix. Had booster of vlangxesx48 in 08/16. Assessment & Plan (02/15/2020 2:35 PM CDT): cdai = 3, remission Changed from Humira to Simponi Aria due to Medicare. Plan to continue with Simponi Aria p0fjzui. Continue mtx. utd labs. She is asking if she can get her labs done when here for infusions, n5ztsje. I put in a standing order for this. F/u 3 months. utd flu shot. utd cdofsax06 and shingrix. Had booster of ummaglbzw48 in 08/16. Assessment & Plan (11/15/2019 1:24 PM CDT): cdai = 2, remission Changed from Humira to Simponi Aria due to Medicare. Plan to continue with Simponi Aria o6wjnjv. Continue mtx. utd labs. Reviewed recent labs which were normal. Continue every 3 months. F/u 3 months. utd flu shot. To get booster of gbyglfuwr75. utd dncmcov25 and shingrix. Assessment & Plan (08/16/2019 1:38 PM HALL CLEANER): cdai = 0 Changed from Humira to Simponi Aria due to Medicare. Plan to continue with Simponi Aria s9ipykn. Continue mtx. utd labs. Will give order to do labs again in 3 months. F/u 3 months. utd flu shot. To get booster of udcjfgvnl51. utd khjgdea13 and shingrix. Assessment & Plan (05/15/2019 1:19 PM HALL CLEANER): cdai = 3 Recently changed from Humira to Simponi Aria due to Medicare. Plan to continue with Simponi Aria u1aznmn. Continue mtx. utd labs. F/u 3 months. utd flu shot. To get booster of mppuzozdq50 and shingrix. Assessment & Plan (04/13/2019 4:36 PM CDT): Recently changed from Humira to Simponi Aria due to Medicare. Has a rash that started after simponi but I do not feel it is a reaction. See below. Will still plan to continue with Simponi Aria k5nxhre. Continue mtx. utd labs. Keep next visit for 1 month. Assessment & Plan (02/08/2019 2:08 PM CDT): cdai = 3 Doing very well on mtx and humira at this time. Due to starting Medicare soon will plan to change to Simponi aria when out of her current supply of Humira. utd flu shot. utd labs. May do standing order c9cfpbeo since stable. f/u 3 months. Assessment & Plan (11/10/2018 4:31 PM CDT): cdai = 3 Doing very well on mtx and humira at this time. Will cont present meds. utd flu shot. utd labs. May do standing order p0qfjsyi since stable. f/u 3 months. She will be going on Medicare soon when her retires and we may try changing to simponi aria at that time for better coverage. Assessment & Plan (08/10/2018 1:40 PM HALL CLEANER): cdai = 5 Doing very well on mtx and humira at this time. Will cont present meds. utd flu shot. utd labs. May do standing order c1goczeg since stable. f/u 3 months. Assessment & [...] months Assessment & Plan (07/21/2017 11:21 AM HALL CLEANER): cdai 3. Doing very well on mtx [...] on file Legal Sex Female 7:17 AM HALL CLEANER Gender Identity Female 02/22/2021 1:14 PM CDT Sexual Orientation Not on file Last Filed Vital Signs Vital Sign Reading Time Taken Comments Blood Pressure 120/76 07/19/2024 10:24 AM HALL CLEANER Pulse 73 07/19/2024 10:24 AM HALL CLEANER Temperature 36.6 C (97.8 F) 08/27/2021 1:22 PM HALL CLEANER Respiratory Rate - - Oxygen Saturation 96% 07/19/2024 10:24 AM HALL CLEANER Inhaled Oxygen Concentration - - Weight 104.3 kg (230 lb) 07/19/2024 10:24 AM HALL CLEANER Height 165.1 cm (5' 5 ) 07/19/2024 10:24 AM HALL CLEANER Body Mass Index 38.27 07/19/2024 10:24 AM HALL CLEANER Plan of Treatment Not on file Procedures Procedure Name Priority Date/Time Associated Diagnosis Comments ERYTHROCYTE SEDIMENTATION RATE Routine 07/19/2024 10:45 AM HALL CLEANER Seropositive rheumatoid arthritis of multiple sites (HCC) High risk medications (not anticoagulants) long-term use CRP (ACUTE PHASE) Routine 07/19/2024 10: 45 AM HALL CLEANER Seropositive rheumatoid arthritis of multiple sites (HCC) High risk medications (not anticoagulants) long-term use COMPREHENSIVE METABOLIC PANEL Routine 07/19/2024 10:45 AM HALL CLEANER Seropositive rheumatoid arthritis of multiple sites (HCC) High risk medications (not anticoagulants) long-term use CBC WITH AUTO DIFFERENTIAL Routine 07/19/2024 10:45 AM HALL CLEANER Seropositive rheumatoid arthritis of multiple sites (HCC) [...] CBC with auto differential (07/19/2024 10:45 AM HALL CLEANER) WBC 7.8 3.8 - 10.8 Thousand/u L [...] [facility] Blood 07/19/2024 10:4 5 AM HALL CLEANER 07/19/2024 10:45 AM HALL CLEANER Ange Dempsey [place] LAB BLOOD ORDERABLES Fin al Result Performing Organization Address [facility] Co de Phone Number [facility] [address] [place] [address] * Erythrocyte sedimentation rate (07/19/2024 10:45 AM HALL CLEANER) Erythrocyte sedimentation rate 14 < OR = 30 mm/h [facility] Blood 07/19/2024 10:4 5 AM HALL CLEANER 07/19/2024 10:45 AM HALL CLEANER Ange Dempsey [place] LAB BLOOD ORDERABLES Fin al Result Performing Organization Address [facility] de Phone Number [facility] [employer] [address] [place] [address] * CRP (acute phase) (07/19/2024 10:45 AM HALL CLEANER) C-RP <3.0 <8.0 mg/L [facility] Blood 07/19/2024 10:4 5 AM HALL CLEANER 07/19/2024 10:45 AM HALL CLEANER Ange Dempsey [place] LAB BLOOD ORDERABLES Fin al Result Performing Organization Address [facility] Phone Number [facility] [address] [place] [address] * (ABNORMAL) Comprehensive metabolic panel (07/19/2024 10:45 AM HALL CLEANER) Glucose 102(H) 65 - 99 mg/dL [facility] Blood 07/19/2024 10:4 5 AM HALL CLEANER 07/19/2024 10:45 AM HALL CLEANER Ange YING LAB BLOOD ORDERABLES Fin al Result [facility] [address] [address] [place] [phone] * Screening Mammogram Bilateral W Ivan (03/22/2024 9:34 AM CDT) Anatomical Region Laterality Modality Breast Bilateral Mammography Narrative 03/22/2024 2:11 PM CDT Mammogram Technique: Bilateral Digital Breast Tomosynthesis, Bilateral C-view 2D Screening mammogram. Views obtained: bilateral craniocaudal and bilateral mediolateral oblique. Computer Aided Detection was performed. Mammogram Findings: The present examination has been compared to prior imaging studies performed at [facility] on 12/26/2020, 02/17/2022 and 03/15/2023. There are [...] compared to prior imaging studies performed at [facility] on 12/26/2020, 02/17/2022 and 03/15/2023. There are [...] with a HCV Nucleic Acid Amplification test ([id number]). Blood specimen (specimen) 02/16/2019 10:01 AM CDT 02/16/2019 Narrative [facility] - 02/17/2019 6:08 AM CDT Performed at: [address] [place] [id number] Tool Supervisor: Derek Ryan PhD, Phone: [phone] Ange YING LAB MICROBIOLOGY - GENER AL ORDERABLES Final Result [facility] - 01 from Last 3 Months or Most Recently Relevant to Health Maintenance Insurance MEDICARE [facility] Address: [address] [address] [facility] MEDICARE MEDICARE [facility] MEDICARE MEDICARE [facility] MEDICARE [employer] [place] [address] Care Teams Electrical Machinist Relationship Specialty Start Date End Date Tello Avelar PA [facility] [place] [address] PCP - General Internal Medicine 11/17/23 Allen Carrasco MD [address] [place] [address] Consulting Physician Rheumatology 07/19/23
--- OUTSIDE RECORDS SUMMARY | 2024-09-17 17:18 | XMS_ITS | Clinical Summary ---
Author Organization [facility] [address] Address [address] [place] [address] Phone Care Team Providers Care School Adjustment Counselor Name Role Phone Allen Carrasco MD Unavailable [phone] Tello Avelar Primary Care Provider + Allergies Active Allergy Reactions Criticality Noted Date Comments Diphenhydramine Hcl Hives High 10/20/2018 Reaction: hives, , 10/20/18 pt denies allergy to diphenhydramine. Sulfa (Sulfonamide Antibiotics) Hives High Reaction: hives, , Sulfanilamide Medications multivit-minera ls-ferrous fum (MULTI VITAMIN) 9 mg iron/15 mL liquid take 1 by Oral route every day 0 0 03/19/2013 Active omega 7-nkd-fci-fish oil (FISH OIL) 100-160-1,000 mg capsule take [...] minutes at weeks 0 and 4, then w2odoly 02/08/2019 Active omeprazole (PriLOSEC) 20 mg capsule [...] try to get in with derm and/or [facility] man if urticaria persists. I do not think [...] 04/13/2019 Assessment & Plan (05/15/2019 5:21 PM ADMINISTRATIVE INTERN): Improved with time/valtrex. Possible shingles. I do [...] 1.7% Assessment & Plan (07/19/2024 12:46 PM ADMINISTRATIVE INTERN): BMD 12/27/19: lumbar spine -1.6, hip -1.2 [...] 03/20 Assessment & Plan (07/21/2023 1:33 PM ADMINISTRATIVE INTERN): BMD 12/27/19: lumbar spine -1.6, hip -1.2 FRAX 6.9, 0.1 BMD 03/18: lumbar spine -2.2, L femoral neck -1.7, R femoral neck -0.7. FRAX 12% and 1.7% Some worse this year but still low FRAX score. Continue calcium and vit D Assessment & Plan (05/27/2022 1:18 PM ADMINISTRATIVE INTERN): BMD 12/27/19: lumbar spine -1.6, hip -1.2 [...] 01/15 Assessment & Plan (08/27/2021 1:29 PM ADMINISTRATIVE INTERN): BMD 12/27/19: lumbar spine -1.6, hip -1.2 [...] yrs Assessment & Plan (05/15/2020 1:36 PM ADMINISTRATIVE INTERN): BMD 12/27/19: lumbar spine -1.6, hip -1.2 [...] able Assessment & Plan (08/16/2019 1:37 PM ADMINISTRATIVE INTERN): Osteopenia -1.8 spine in 07/2017. Will give order to repeat bmd Assessment & Plan (11/10/2018 1:08 PM CDT): Osteopenia -1.8 spine in 2018 Assessment & Plan (08/10/2018 1:26 PM ADMINISTRATIVE INTERN): Osteopenia -1.8 spine in 2018 Assessment & Plan (04/25/2018 5:10 PM CDT): Osteopenia -1.8 spine in 2018 High risk medications (not anticoagulants) long- term use 01/21/2017 Overview (02/18/2020): Neg quantiferon 02/13 Neg cxr /20 Neg hepatitis 8/19 Assessment & Plan (07/19/2024 12:45 PM ADMINISTRATIVE INTERN): Quant gold neg 05/14 cxr neg 20 Neg hepatitis 8/19 May do labs a6rwthqz. Vaccine recommendations: yearly flu shot - not yet done She had bgqyutjbc09 in 2012, got a booster in 2019. Had a dose of . utd tdap. utd shingrix. New COVID vaccine 04/18. Hasn't had RSV vaccine yet. utd colonoscopy in 10/15. utd mammograms. Assessment & Plan (04/19/2024 11:02 AM CDT): Quant gold neg 11/18 cxr neg 7/20 Neg hepatitis 8/19 May do labs w7raimnf. Vaccine recommendations: yearly flu shot - planned for 05/20. She had bzdywjvya41 in 2013, got a booster in 2019. Had a dose of ngsyjrs09. utd tdap. utd shingrix. New COVID vaccine 04/18. Hasn't had RSV vaccine yet. utd colonoscopy in 10/15. utd mammograms. Assessment & Plan (01/19/2024 9:53 AM CDT): Quant gold neg 05/14 cxr neg 7/20 Neg hepatitis 8/19 May do labs v8yjxzpi. Vaccine recommendations: yearly flu shot utd. She had xguzjmmqo13 in 2013, got a booster in 2019. Had a dose of wibcfvp38. utd tdap. utd shingrix. New COVID vaccine 04/18. Hasn't had RSV vaccine yet. utd colonoscopy in 10/15. utd mammograms. Assessment & Plan (10/20/2023 10:24 AM CDT): Quant gold neg 05/14 cxr neg 7/20 Neg hepatitis 8/19 May do labs g3wzrylo. Vaccine recommendations: yearly flu shot utd. She had fqpjtrlih79 in 2013, got a booster in 2019. Had a dose of . utd tdap. utd shingrix. New COVID vaccine 04/18. Hasn't had RSV vaccine yet. utd colonoscopy in 10/15. utd mammograms. Assessment & Plan (07/21/2023 10:29 AM ADMINISTRATIVE INTERN): Quant gold neg 05/14 cxr neg 7/20 Neg hepatitis 8/19 May do labs h5jinxmg. Vaccine recommendations: yearly flu shot utd. She had ziaisuybq36 in 2013, got a booster in 2019. Had a dose of qgjckez04. utd tdap. utd shingrix. New COVID vaccine 04/18. Discussed RSV vaccine and she is eligible, will need script for pharmacy. utd colonoscopy in 10/15. utd mammograms. Assessment & Plan (04/19/2023 11:08 AM CDT): Quant gold neg 18 cxr neg 7/20 Neg hepatitis 8/19 May do labs n8lycmga. Vaccine recommendations: yearly flu shot utd. She had nhfrromcw40 in 2013, got a booster in 2019. Had a dose of boquqrf28. utd tdap. utd shingrix. New COVID vaccine 04/18 utd colonoscopy in 10/15. utd mammograms. Assessment & Plan (01/20/2023 10:32 AM CDT): Quant gold neg 18 cxr neg 7/20 Neg hepatitis 8/19 May do labs i7bwcwam. Vaccine recommendations: yearly flu shot utd. She had hiylcaste75 in 2013, got a booster in 2019. Had a dose of . utd tdap. utd shingrix. Received COVID vaccines and 3rd dose. utd colonoscopy in 10/15. utd mammograms. Assessment & Plan (09/24/2022 12:18 PM CDT): Quant gold neg 18 cxr neg /20 Neg hepatitis 819 May do labs v5hfthdd. Vaccine recommendations: yearly flu shot utd. She had ecmfxxacq91 in 2013, got a booster in 2019. Had a dose of jmflkes62. utd tdap. utd shingrix. Received COVID vaccines and 3rd dose. utd colonoscopy in 10/15. utd mammograms. Assessment & Plan (05/27/2022 1:14 PM ADMINISTRATIVE INTERN): Quant gold neg 18 cxr neg /20 Neg hepatitis 8/19 May do labs f7mxojhi. Vaccine recommendations: yearly flu shot utd. She had zvejvazkm43 in 2013, got a booster in 2019. Had a dose of xashcje28. utd tdap. utd shingrix. Received COVID vaccines and 3rd dose. utd colonoscopy in 10/15. utd mammograms. Assessment & Plan (02/25/2022 12:58 PM CDT): Quant gold neg 11/18 cxr neg 7/20 Neg hepatitis 8/19 May do labs f6kmieum. Vaccine recommendations: yearly flu shot utd. She had ciqxmrvnj33 in 2013, got a booster in 2020. Had a dose of qrljgno86. utd tdap. utd shingrix. Received COVID vaccines and 3rd dose. utd colonoscopy in 10/15. utd mammograms. Assessment & Plan (11/26/2021 1:11 PM CDT): Quant gold neg 11/18 cxr neg 7/20 Neg hepatitis 8 May do labs v0qzfwfd. Vaccine recommendations: yearly flu shot utd. She had in 2013, got a booster in 2020. Had a dose of bziltef92. utd tdap. utd shingrix. Received COVID vaccines and 3rd dose. utd colonoscopy in 10/15. utd mammograms. Assessment & Plan (08/27/2021 1:29 PM ADMINISTRATIVE INTERN): Quant gold neg 11/18 cxr neg 7/20 Neg hepatitis 8 May do labs b3draxja. Vaccine recommendations: yearly flu shot utd. She had ldysocggm97 in 2013, got a booster in 2020. Had a dose of afovpxa44. utd tdap. utd shingrix. Received COVID vaccines and 3rd dose. utd colonoscopy in 10/15. utd mammograms. Assessment & Plan (05/28/2021 1:50 PM ADMINISTRATIVE INTERN): Quant gold neg 11/18 cxr neg 7/20 Neg hepatitis 819 May do labs n9rtsffp. Vaccine recommendations: yearly flu shot utd. She had rtbvdodtk87 in 2013, got a booster in 2020. Had a dose of qwqpadx59. utd tdap. utd shingrix. Received COVID vaccines and 3rd dose. utd colonoscopy in 10/15. utd mammograms. Assessment & Plan (02/19/2021 1:09 PM CDT): Quant gold neg 11/18 cxr neg 7/20 Neg hepatitis 8/19 May do labs a6nnekve. Vaccine recommendations: yearly flu shot. She had ovcggxqxh51 in 2013, got a booster in 2020. Had a dose of . utd tdap. utd shingrix. Received COVID vaccine. May get booster. utd colonoscopy in 10/15. utd mammograms. Assessment & Plan (11/20/2020 1:39 PM CDT): Quant gold neg 11/18 cxr neg 7/20 Neg hepatitis 8/19 May do labs c5qlkiod. Vaccine recommendations: yearly flu shot. She had gwyytqrqt89 in 2013, got a booster in 2020. Had a dose of uhfjsxw12. utd tdap. utd shingrix. Received COVID vaccine. utd colonoscopy in 10/15. utd mammograms. Assessment & Plan (08/21/2020 6:52 PM ADMINISTRATIVE INTERN): Quant gold neg 11/18 cxr neg 7/20 Neg hepatitis 8/19 May do labs y0ztwwlz. Vaccine recommendations: yearly flu shot. She had esoryblzi23 in 2013, got a booster in 2020. Had a dose of andygyw18. utd tdap. utd shingrix. Receiving COVID vaccine. Assessment & Plan (05/15/2020 1:32 PM ADMINISTRATIVE INTERN): Quant gold neg 11/18 cxr neg 7/20 Neg hepatitis 8/19 May do labs r5tdcxmd. Vaccine recommendations: yearly flu shot. She had vrkpbtkfo30 in 2013, got a booster in 2020. Had a dose of zlzoczm66. utd tdap. utd shingrix. Assessment & Plan (02/15/2020 2:36 PM CDT): Quant gold neg 11/18 cxr neg 7/20 Neg hepatitis 8/19 May do labs c2zxyreu. Vaccine recommendations: yearly flu shot. She had zuznxbjmf67 in 2013, got a booster in 2020. Had a dose of dgpdeaa22. utd tdap. utd shingrix. Assessment & Plan (11/15/2019 1:24 PM CDT): Quant gold neg 11/18 cxr neg 8/18. Has order to repeat Neg hepatitis 819 May do labs c3vsnjwk. Vaccine recommendations: utd flu shot. She had cnsgzvyxf22 in 2012. Had a dose of sdgaalu55. May have booster for kuwbtllol65. utd tdap. utd shingrix. Assessment & Plan (08/16/2019 1:34 PM ADMINISTRATIVE INTERN): Quant gold neg 11/18 cxr neg 8/18 Neg hepatitis 819 May do labs r7xxuunc. Vaccine recommendations: utd flu shot. She had in 2013. Had a dose of . May have booster for hubegwhvz89. utd tdap. utd shingrix. Assessment & Plan (05/15/2019 1:05 PM ADMINISTRATIVE INTERN): Quant gold neg 11/18 cxr neg 8/18 Neg hepatitis 819 Standing order is good from 10/13 through 04/14. May do labs z3kwusrt. Vaccine recommendations: utd flu shot. She had srbxlgevw72 in 2012. Had a dose of ylakcjh28. May have booster for ruqtgalau60. utd tdap. May have Shingrix. Assessment & Plan (04/13/2019 8:38 AM CDT): Quant gold neg 11/18 cxr neg 8/18 Neg hepatitis 819 Standing order is good from 10/13 through 04/14. May do labs u6srdzhk. Vaccine recommendations: utd flu shot. She had rtolacrnz63 in 2012. Had a dose of cnswxpi38. May have booster for . utd tdap. May have Shingrix. Assessment & Plan (02/08/2019 2:10 PM CDT): Quant gold neg 11/18 cxr neg 8/18 Standing order is good from 10/13 through 04/14. May do labs m0orjvij. Vaccine recommendations: utd flu shot. She had tqlgbrnvu30 in 2013. Had a dose of uomfodx64. May have booster for oxasywibc79. utd tdap. May have Shingrix. Assessment & Plan (11/10/2018 4:32 PM CDT): Quant gold neg 11/18 cxr neg 8/18 Standing order is good from 10/13 through 04/14. May do labs n1gzozas. Vaccine recommendations: utd flu shot. She had xzvccukca13 in 2012. Should go for Zeldvis00 now. At least 8 weeks later get booster of frsyflhbv35 (since immune compromised). Also inquire about availability of Shingrix and may have this. Check with pcp about Tdap status. Hold mtx for 2 weeks following dose of vaccine. Assessment & Plan (08/10/2018 1:48 PM ADMINISTRATIVE INTERN): Quant gold neg 05/14 cxr neg 8/18 Standing order is good from 04/13 through 10/13. May do labs t5xhkhrx. Reviewed vaccine recommendations with pt. utd flu shot. She had cdbyxaxuq69 in 2012. Should go for Tcrzhea16 now. At least 8 weeks later get booster of jnmwbybgd78 (since immune compromised). Also inquire about availability [...] 04/13 Assessment & Plan (07/21/2017 11:22 AM ADMINISTRATIVE INTERN): Quant gold neg 12/17. Assessment & Plan [...] mtx Assessment & Plan (07/19/2024 12:45 PM ADMINISTRATIVE INTERN): cdai = 3, remission Changed from Humira to Simponi Aria due to Medicare several years ago and continues to do well overall. Plan to continue with Simponi Aria p9cevoi. Continue mtx 15mg weekly. Continue routine labs. F/u 3 months. Assessment & Plan (04/19/2024 11:02 AM CDT): cdai = 0, remission Changed from Humira to Simponi Aria due to Medicare several years ago and continues to do well overall. Plan to continue with Simponi Aria g8ntbzd. Continue mtx 15mg weekly. Continue routine labs. F/u 3 months. Assessment & Plan (01/19/2024 3:03 PM CDT): cdai = 0, remission Changed from Humira to Simponi Aria due to Medicare several years ago and continues to do well overall. Plan to continue with Simponi Aria l8hkjmf. Continue mtx 15mg weekly. Continue routine labs. F/u 3 months. Assessment & Plan (10/20/2023 10:24 AM CDT): cdai = 1, remission Changed from Humira to Simponi Aria due to Medicare several years ago and continues to do well overall. Plan to continue with Simponi Aria x5ujorz. Continue mtx 15mg weekly. Continue routine labs. F/u 3 months. Assessment & Plan (07/21/2023 1:33 PM ADMINISTRATIVE INTERN): cdai = 1, remission Changed from Humira to Simponi Aria due to Medicare several years ago and continues to do well overall. Plan to continue with Simponi Aria r2jfcbg. Continue mtx 15mg weekly. Continue routine labs. F/u [address] Carrasco. Assessment & Plan (04/19/2023 11:07 AM CDT): cdai = 1, remission Changed from Humira to Simponi Aria due to Medicare and continues to do well overall. Plan to continue with Simponi Aria n1jxbjg. Continue mtx 15mg weekly. Continue routine labs. F/u 3 months. Assessment & Plan (01/20/2023 11:20 AM CDT): cdai = 0, remission Changed from Humira to Simponi Aria due to Medicare and continues to do well overall. Plan to continue with Simponi Aria h3ckqel. Continue mtx 15mg weekly. Continue routine labs. F/u [address] Almaraz. Assessment & Plan (09/24/2022 1:59 PM CDT): cdai = 1, remission Changed from Humira to Simponi Aria due to Medicare and continues to do well overall. Plan to continue with Simponi Aria w7ifcqi. Continue mtx 15mg weekly. Continue routine labs. F/u 3 months. Assessment & Plan (05/27/2022 1:14 PM ADMINISTRATIVE INTERN): cdai = , low activity/remission Changed from Humira to Simponi Aria due to Medicare and continues to do well overall. Plan to continue with Simponi Aria r0cvoij. Continue mtx 15mg weekly. Continue routine labs. F/u 3 months. Assessment & Plan (02/25/2022 2:50 PM CDT): cdai = 0, low activity/remission Changed from Humira to Simponi Aria due to Medicare and continues to do well overall. Plan to continue with Simponi Aria x0nflmh. Continue mtx 15mg weekly. Continue routine labs. F/u 3 months. Assessment & Plan (11/26/2021 4:50 PM CDT): cdai = 4, low activity Changed from Humira to Simponi Aria due to Medicare and continues to do well overall. Plan to continue with Simponi Aria d2rafug. Continue mtx 15mg weekly. Continue routine labs. F/u 3 months. Assessment & Plan (08/27/2021 1:48 PM ADMINISTRATIVE INTERN): cdai = 2, remission Changed from Humira to Simponi Aria due to Medicare and continues to do well overall. Plan to continue with Simponi Aria a2iulir. Continue mtx 15mg weekly. Continue routine labs. F/u 3 months. Assessment & Plan (05/28/2021 1:52 PM ADMINISTRATIVE INTERN): cdai = 3, remission Changed from Humira to Simponi Aria due to Medicare and continues to do well overall. Plan to continue with Simponi Aria z7lirlb. Continue mtx 15mg weekly. Continue routine labs. F/u 3 months. Assessment & Plan (02/19/2021 1:11 PM CDT): cdai = 1, remission Changed from Humira to Simponi Aria due to Medicare and continues to do well overall. Plan to continue with Simponi Aria d2albsy. Continue mtx 15mg weekly. Continue routine labs. F/u 3 months. Assessment & Plan (11/20/2020 1:41 PM CDT): cdai = 0, remission Changed from Humira to Simponi Aria due to Medicare and continues to do well overall. Plan to continue with Simponi Aria r2ylqzi. Continue mtx 15mg weekly. Continue routine labs. F/u 3 months. Assessment & Plan (08/21/2020 6:51 PM ADMINISTRATIVE INTERN): cdai = 0, remission Changed from Humira to Simponi Aria due to Medicare and continues to do well overall. Plan to continue with Simponi Aria d4hktdt. Continue mtx 15mg weekly. Continue routine labs. F/u 3 months. utd flu shot. utd vlxzryz26 and shingrix. Had booster of yxxztpecl23 in 08/16. Had covid vaccine. Advised to hold mtx for 1 week following vaccine administration. Assessment & Plan (05/15/2020 1:35 PM ADMINISTRATIVE INTERN): cdai = 2, remission Changed from Humira to Simponi Aria due to Medicare and continues to do well overall. Plan to continue with Simponi Aria e8aaeuy. Continue mtx 15mg weekly. Continue routine labs via standing order. F/u 3 months. utd flu shot. utd zurxjgf77 and shingrix. Had booster of ungdzakbo72 in 08/16. Assessment & Plan (02/15/2020 2:35 PM CDT): cdai = 3, remission Changed from Humira to Simponi Aria due to Medicare. Plan to continue with Simponi Aria z6dpnlx. Continue mtx. utd labs. She is asking if she can get her labs done when here for infusions, s2psdnn. I put in a standing order for this. F/u 3 months. utd flu shot. utd djajgok64 and shingrix. Had booster of bihlcduvv99 in 08/16. Assessment & Plan (11/15/2019 1:24 PM CDT): cdai = 2, remission Changed from Humira to Simponi Aria due to Medicare. Plan to continue with Simponi Aria w7sxqxi. Continue mtx. utd labs. Reviewed recent labs which were normal. Continue every 3 months. F/u 3 months. utd flu shot. To get booster of jyfkxyhsy81. utd gjriulb08 and shingrix. Assessment & Plan (08/16/2019 1:38 PM ADMINISTRATIVE INTERN): cdai = 0 Changed from Humira to Simponi Aria due to Medicare. Plan to continue with Simponi Aria x7ulnxq. Continue mtx. utd labs. Will give order to do labs again in 3 months. F/u 3 months. utd flu shot. To get booster of wbejbuncm45. utd mohttnh47 and shingrix. Assessment & Plan (05/15/2019 1:19 PM ADMINISTRATIVE INTERN): cdai = 3 Recently changed from Humira to Simponi Aria due to Medicare. Plan to continue with Simponi Aria x5pdusr. Continue mtx. utd labs. F/u 3 months. utd flu shot. To get booster of akjycgwkd13 and shingrix. Assessment & Plan (04/13/2019 4:36 PM CDT): Recently changed from Humira to Simponi Aria due to Medicare. Has a rash that started after simponi but I do not feel it is a reaction. See below. Will still plan to continue with Simponi Aria s4hnwpr. Continue mtx. utd labs. Keep next visit for 1 month. Assessment & Plan (02/08/2019 2:08 PM CDT): cdai = 3 Doing very well on mtx and humira at this time. Due to starting Medicare soon will plan to change to Simponi aria when out of her current supply of Humira. utd flu shot. utd labs. May do standing order r1rxymbd since stable. f/u 3 months. Assessment & Plan (11/10/2018 4:31 PM CDT): cdai = 3 Doing very well on mtx and humira at this time. Will cont present meds. utd flu shot. utd labs. May do standing order y2bhdgjh since stable. f/u 3 months. She will be going on Medicare soon when her retires and we may try changing to joanie larry at that time for better coverage. Assessment & Plan (08/10/2018 1:40 PM ADMINISTRATIVE INTERN): cdai = 5 Doing very well on mtx and humira at this time. Will cont present meds. utd flu shot. utd labs. May do standing order b5hdhead since stable. f/u 3 months. Assessment & [...] months Assessment & Plan (07/21/2017 11:21 AM ADMINISTRATIVE INTERN): cdai 3. Doing very well on mtx [...] Department Care Team Description 07/26/2024 Orders Only [facility] [address] [place] [id number] Ange Dempsey PA Osteopenia of multiple sites (Primary Dx) 07/26/2024 Telephone [facility] [address] [place] [phone] Nanette Bocanegra 07/19/2024 10:30 AM ADMINISTRATIVE INTERN Office Visit [address] [phone] Ange Dempsey PA Seropositive rheumatoid [...] on file Legal Sex Female 7:17 AM ADMINISTRATIVE INTERN Gender Identity Female 02/22/2021 1:14 PM CDT Sexual Orientation Not on file Obstetrics History Last Filed Vital Signs Vital Sign Reading Time Taken Comments Blood Pressure 120/76 07/19/2024 10:24 AM ADMINISTRATIVE INTERN Pulse 73 07/19/2024 10:24 AM ADMINISTRATIVE INTERN Temperature 36.6 C (97.8 F) 08/27/2021 1:22 PM ADMINISTRATIVE INTERN Respiratory Rate - - Oxygen Saturation 96% 07/19/2024 10:24 AM ADMINISTRATIVE INTERN Inhaled Oxygen Concentration - - Weight 104.3 kg (230 lb) 07/19/2024 10:24 AM ADMINISTRATIVE INTERN Height 165.1 cm (5' 5 ) 07/19/2024 10:24 AM ADMINISTRATIVE INTERN Body Mass Index 38.27 07/19/2024 10:24 AM ADMINISTRATIVE INTERN Plan of Treatment Health Maintenance Due Date [...] ERYTHROCYTE SEDIMENTATION RATE Routine 07/19/2024 10:45 AM ADMINISTRATIVE INTERN Seropositive rheumatoid arthritis of multiple sites (HCC) High risk medications (not anticoagulants) long-term use CRP (ACUTE PHASE) Routine 07/19/2024 10: 45 AM ADMINISTRATIVE INTERN Seropositive rheumatoid arthritis of multiple sites (HCC) High risk medications (not anticoagulants) long-term use COMPREHENSIVE METABOLIC PANEL Routine 07/19/2024 10:45 AM ADMINISTRATIVE INTERN Seropositive rheumatoid arthritis of multiple sites (HCC) High risk medications (not anticoagulants) long-term use CBC WITH AUTO DIFFERENTIAL Routine 07/19/2024 10:45 AM ADMINISTRATIVE INTERN Seropositive rheumatoid arthritis of multiple sites (HCC) [...] CBC with auto differential (07/19/2024 10:45 AM ADMINISTRATIVE INTERN) WBC 7.8 3.8 - 10.8 Thousand/u L [...] [facility] Blood 07/19/2024 10:4 5 AM ADMINISTRATIVE INTERN 07/19/2024 10:45 AM ADMINISTRATIVE INTERN Ange [facility] LAB BLOOD ORDERABLES Fin al Result Performing Organization Address [facility] Co de Phone Number QUEST [facility] [address] [place] [address] * Erythrocyte sedimentation rate (07/19/2024 10:45 AM ADMINISTRATIVE INTERN) Erythrocyte sedimentation rate 14 < OR = 30 mm/h [facility] Blood 07/19/2024 10:4 5 AM ADMINISTRATIVE INTERN 07/19/2024 10:45 AM ADMINISTRATIVE INTERN Ange Littlejohn Roselyn Y[facility] LAB BLOOD ORDERABLES Fin al Result Performing Organization Address [facility] de Phone Number QUEST [facility] [address] [place] [address] * CRP (acute phase) (07/19/2024 10:45 AM ADMINISTRATIVE INTERN) C-RP <3.0 <8.0 mg/L [facility] Blood 07/19/2024 10:4 5 AM ADMINISTRATIVE INTERN 07/19/2024 10:45 AM ADMINISTRATIVE INTERN Ange Littlejohn Roselyn [facility] LAB BLOOD ORDERABLES Fin al Result Performing Organization Address [facility] de Phone Number QUEST [facility] [address] [place] [address] * (ABNORMAL) Comprehensive metabolic panel (07/19/2024 10:45 AM ADMINISTRATIVE INTERN) Glucose 102(H) 65 - 99 mg/dL [facility] 07/19/2024 10:4 5 AM ADMINISTRATIVE INTERN 07/19/2024 10:45 AM ADMINISTRATIVE INTERN us Ange [facility] LAB BLOOD ORDERABLES Fin al Result Performing Organization Address City/State/[facility] Co de Phone Number MIMI [facility] [address] [place] [address] * Screening Mammogram Bilateral W Ivan (03/22/2024 9:34 AM CDT) Anatomical Region Laterality Modality Breast Bilateral Mammography Narrative 03/22/2024 2:11 PM CDT Mammogram Technique: Bilateral Digital Breast Tomosynthesis, Bilateral C-view 2D Screening mammogram. Views obtained: bilateral craniocaudal and bilateral mediolateral oblique. Computer Aided Detection was performed. Mammogram Findings: The present examination has been compared to prior imaging studies performed at [facility] on 12/26/2020, 02/17/2022 and 03/15/2023. There [...] compared to prior imaging studies performed at [facility] on 12/26/2020, 02/17/2022 and 03/15/2023. There [...] with a HCV Nucleic Acid Amplification test ([id number]). Blood specimen (specimen) 02/16/2019 10:01 AM CDT 02/16/2019 Narrative [facility] - 02/17/2019 6:08 AM CDT Performed at: [address] [place] [id number] Dental Laboratory Supervisor: Derek Ryan PhD, Phone: [phone] [facility] MICROBIOLOGY - GENER AL ORDERABLES Final Result [facility] - 01 from Last 3 Months or Most Recently Relevant to Health Maintenance Insurance MEDICARE [facility] MEDICARE MEDICARE [facility] MEDICARE MEDICARE [facility] [place] [address] [place] [address] [facility] [place] [place] [address] Care Teams School Adjustment Counselor Relationship Specialty Start Date End Date Tello Avelar PA [facility] [place] [address] PCP - General Internal Medicine 11/17/23 Allen Carrasco MD [facility] [place] [address] Consulting Physician Rheumatology 07/19/23
[2024-09-17 18:09] VITALS: BP 134/60; PULSE 84; RESP 16; O2SAT 98
== END 2024-09-17 18:10 | disposition home or self-care (01) ==
PROVIDERS: Registered Nurse; Emergency Provider Emergency Medicine; PCP Physician Assistant
DX: R10.12 Left upper quadrant pain (principal); M06.9 Rheumatoid arthritis, unspecified; K21.9 Gastro-esophageal reflux disease without esophagitis; E78.5 Hyperlipidemia, unspecified; E66.9 Obesity, unspecified; Z68.36 Body mass index [BMI] 36.0-36.9, adult
CPT/HCPCS: 36415; 71046; 74177; 80053; 81001; 83605; 83690; 84484; 85025; 85610; 85730; 87086; 93005; 96374; 96375; 99284; A9270; J2470; Q9967

== ENCOUNTER 2025-02-26 13:26 | Outpatient (CLI) | payer MEDICARE, OTHER, SELFPAY ==
--- NOTE | ~2025-02-26 | DEXA_ITS ---
Bone Density Report Name: MOUNIKA QUAN Age: 69 Sex: Female Ethnicity: White Date of : 1955 Indication: postmenopausal; screening for osteoporosis; height loss; hysterectomy; Referring Provider: RUIZ CHARLTON Study: Bone densitometry was performed. Exam Date: February 26, 2025 Accession number: [id number] Bone Density: Region BMD T-score Z-score Classification AP Spine(L1-L4) 0.769 -2.5 -0.3 Osteoporosis Femoral Neck (Left) 0.640 -1.9 0.0 Osteopenia Total Hip (Left) 0.767 -1.4 0.2 Osteopenia Femoral Neck (Right) 0.688 -1.4 0.4 Osteopenia Total Hip (Right) 0.805 -1.1 0.5 Osteopenia Total Hip Mean 0.786 -1.3 0.4 Osteopenia World Health Organization criteria for BMD impression classify patients as: Normal (T-score at or above -1.0), Osteopenia (T-score between -1.0 and -2.5), or Osteoporosis (T-score at or below -2.5). 10-year Fracture Risk: FRAX not reported because: Some T-score for Spine Total or Hip Total or Femoral Neck at or below -2.5 Clinical Information Provided by Patient: Has used the following medications: Calcium Has the following medical conditions: Hysterectomy Patient maximum height was 66 Menopause Age: 43 Drinks caffeinated beverages Onset of menses at age 12 Number of children 2 Impression: The patient has osteoporosis, based on the Total Spine T-score. Discussion: INCREASED RISK OF FRACTURE. BONE DENSITY IS UNDESIRABLY LOW AT ONE OR MORE SKELETAL SITES, CONSISTENT WITH POSTMENOPAUSAL OSTEOPOROSIS. This patient's lowest T-score meets the World Health Organization's (WHO) criteria for osteoporosis at one or more sites (T-score -2.5 or below). In untreated patients, the risk of osteoporotic fracture increases approximately two-fold for each 1.0 SD decrease in T-score. Low bone density is not the only risk factor for fracture; also consider factors such as patient's age, frailty or poor health, risk of falling, risk of injury, previous osteoporotic fracture, family history of osteoporosis, cigarette smoking, low body weight, etc. Not everyone with low bone mineral density has osteoporosis; osteomalacia and other metabolic bone disorders should also be considered. Patients who have osteoporosis should be evaluated for specific diseases and conditions (secondary causes) that may cause or contribute to bone loss. The [place] Association of Clinical Endocrinologists (AACE) and National Osteoporosis Foundation (NOF) recommend pharmacologic intervention for all postmenopausal women whose T-score is in this range. The patient should follow a healthful lifestyle (good nutrition with adequate calcium and vitamin D, and appropriate weight-bearing exercise). Follow-Up: Consider a repeat BMD and Vertebral Fracture Assessment (VFA) exam in 2 years or sooner if medically necessary, to reassess this patient's status. Reported by: GISELLE on 02/26/2025 2:13:00 PM. Reviewed, dictated and finalized at location A.
--- OUTSIDE RECORDS SUMMARY | 2025-02-26 13:38 | XMS_ITS | Clinical Summary ---
Author Organization [facility] [address] Address [address] [place] [address] Phone Care Team Providers Care Sustainment Logistics Analyst Name Role Phone Allen Carrasco MD Unavailable [phone] T[address] Avelar Primary Care Provider + Allergies Active Allergy Reactions Criticality Noted Date Comments Diphenhydramine Hcl Hives High 10/20/2018 Reaction: hives, , 10/20/18 pt denies allergy to diphenhydramine. Sulfa (Sulfonamide Antibiotics) Hives High Reaction: hives, , Sulfanilamide Medications multivit-minera ls-ferrous fum (MULTI VITAMIN) 9 mg iron/15 mL liquid take 1 by Oral route every day 0 0 03/19/2013 Active omega 5-iip-lek-fish oil (FISH OIL) 100-160-1,000 mg capsule take [...] minutes at weeks 0 and 4, then x0kxsjk 02/08/2019 Active hydrOXYzine (ATARAX) 50 mg tablet Take 1 tablet (50 mg total) by mouth every 8 (eight) hours as needed 01/05/2024 Active ezetimibe (ZETIA) 10 mg tablet Take 1 tablet (10 mg total) by mouth daily Active pantoprazole DR (PROTONIX) 40 mg EC tablet Take 1 tablet (40 mg total) by mouth daily 10/15/2024 Active folic acid (FOLVITE) 1 mg tablet Take 1 tablet (1 mg total) by mouth daily 90 tablet 1 10/16/2024 Active methotrexate 2.5 mg tabletIndicatio ns:Rheumatoid Arthritis TAKE 6 TABLETS BY MOUTH EVERY WEEK 72 tablet 1 10/16/2024 Active Active Problems Problem Noted Date Diagnosed [...] try to get in with derm and/or clinical faculty if urticaria persists. I do not think [...] 04/13/2019 Assessment & Plan (05/15/2019 5:21 PM ELECTRON BEAM WELDER SETTER): Improved with time/valtrex. Possible shingles. I do [...] FRAX 12% and 1.7% Assessment & Plan (02/21/2025 9:06 AM CDT): BMD 12/27/19: lumbar spine -1.6, hip -1.2 FRAX 6.9, 0.1 BMD 03/18: lumbar spine -2.2, L femoral neck -1.7, R femoral neck -0.7. FRAX 12% and 1.7% Some worse but still low FRAX score. Continue calcium and vit D. Has BMD scheduled in 03/21 Assessment & Plan (10/16/2024 3:47 PM CDT): BMD 12/27/19: lumbar spine -1.6, hip -1.2 FRAX 6.9, 0.1 BMD 03/18: lumbar spine -2.2, L femoral neck -1.7, R femoral neck -0.7. FRAX 12% and 1.7% Some worse but still low FRAX score. Continue calcium and vit D. Has BMD scheduled in 03/21 Assessment & Plan (07/19/2024 12:46 PM ELECTRON BEAM WELDER SETTER): BMD 12/27/19: lumbar spine -1.6, hip -1.2 [...] 03/20 Assessment & Plan (07/21/2023 1:33 PM ELECTRON BEAM WELDER SETTER): BMD 12/27/19: lumbar spine -1.6, hip -1.2 FRAX 6.9, 0.1 BMD 03/18: lumbar spine -2.2, L femoral neck -1.7, R femoral neck -0.7. FRAX 12% and 1.7% Some worse this year but still low FRAX score. Continue calcium and vit D Assessment & Plan (05/27/2022 1:18 PM ELECTRON BEAM WELDER SETTER): BMD 12/27/19: lumbar spine -1.6, hip -1.2 [...] 01/15 Assessment & Plan (08/27/2021 1:29 PM ELECTRON BEAM WELDER SETTER): BMD 12/27/19: lumbar spine -1.6, hip -1.2 [...] yrs Assessment & Plan (05/15/2020 1:36 PM ELECTRON BEAM WELDER SETTER): BMD 12/27/19: lumbar spine -1.6, hip -1.2 [...] able Assessment & Plan (08/16/2019 1:37 PM ELECTRON BEAM WELDER SETTER): Osteopenia -1.8 spine in 07/2017. Will give order to repeat bmd Assessment & Plan (11/10/2018 1:08 PM CDT): Osteopenia -1.8 spine in 2018 Assessment & Plan (08/10/2018 1:26 PM ELECTRON BEAM WELDER SETTER): Osteopenia -1.8 spine in 2018 Assessment & Plan (04/25/2018 5:10 PM CDT): Osteopenia -1.8 spine in 2018 High risk medications (not anticoagulants) long- term use 01/21/2017 Overview (02/18/2020): Neg quantiferon 02/13 Neg cxr 7/20 Neg hepatitis 8/19 Assessment & Plan (02/21/2025 9:06 AM CDT): Quant gold neg 11/18 cxr neg 7/20 Neg hepatitis 8/19 May do labs m0znbmrx. Vaccine recommendations: yearly flu shot - not yet done She had ssofyoroi90 in 2013, got a booster in 2020. Had a dose of exumrhf46. utd tdap. utd shingrix. New COVID vaccine 04/18. Hasn't had RSV vaccine yet. utd colonoscopy in 10/15. utd mammograms. Assessment & Plan (10/16/2024 3:46 PM CDT): Quant gold neg 1118 cxr neg 720 Neg hepatitis 819 May do labs g9udrmfl. Vaccine recommendations: yearly flu shot - not yet done She had znvhirpha44 in 2013, got a booster in 2020. Had a dose of ysgjprs21. utd tdap. utd shingrix. New COVID vaccine 04/18. Hasn't had RSV vaccine yet. utd colonoscopy in 10/15. utd mammograms. Assessment & Plan (07/19/2024 12:45 PM ELECTRON BEAM WELDER SETTER): Quant gold neg 11/18 cxr neg 720 Neg hepatitis 8/19 May do labs e7kvnjup. Vaccine recommendations: yearly flu shot - not yet done She had in 2013, got a booster in 2020. Had a dose of . utd tdap. utd shingrix. New COVID vaccine 04/18. Hasn't had RSV vaccine yet. utd colonoscopy in 10/15. utd mammograms. Assessment & Plan (04/19/2024 11:02 AM CDT): Quant gold neg 11/18 cxr neg 7/20 Neg hepatitis 8/19 May do labs c0orojxm. Vaccine recommendations: yearly flu shot - planned for 05/20. She had cskqvmtak08 in 2013, got a booster in 2020. Had a dose of nyouziy93. utd tdap. utd shingrix. New COVID vaccine 04/18. Hasn't had RSV vaccine yet. utd colonoscopy in 10/15. utd mammograms. Assessment & Plan (01/19/2024 9:53 AM CDT): Quant gold neg 11/18 cxr neg 7/20 Neg hepatitis 819 May do labs w3iuahzh. Vaccine recommendations: yearly flu shot utd. She had dejlktuby28 in 2013, got a booster in 2020. Had a dose of wfroupi63. utd tdap. utd shingrix. New COVID vaccine 04/18. Hasn't had RSV vaccine yet. utd colonoscopy in 10/15. utd mammograms. Assessment & Plan (10/20/2023 10:24 AM CDT): Quant gold neg 1118 cxr neg 7/20 Neg hepatitis 8/19 May do labs z0uumdey. Vaccine recommendations: yearly flu shot utd. She had pdhdbygcp40 in 2013, got a booster in 2020. Had a dose of xfihlul49. utd tdap. utd shingrix. New COVID vaccine 04/18. Hasn't had RSV vaccine yet. utd colonoscopy in 10/15. utd mammograms. Assessment & Plan (07/21/2023 10:29 AM ELECTRON BEAM WELDER SETTER): Quant gold neg 11/18 cxr neg 7/20 Neg hepatitis 8/19 May do labs w4txteyz. Vaccine recommendations: yearly flu shot utd. She had rleuqublr18 in 2013, got a booster in 2020. Had a dose of deilvyc11. utd tdap. utd shingrix. New COVID vaccine 04/18. Discussed RSV vaccine and she is eligible, will need script for pharmacy. utd colonoscopy in 10/15. utd mammograms. Assessment & Plan (04/19/2023 11:08 AM CDT): Quant gold neg 1118 cxr neg 7/20 Neg hepatitis 8/19 May do labs i6tymkqk. Vaccine recommendations: yearly flu shot utd. She had iauunnyjb65 in 2013, got a booster in 2020. Had a dose of . utd tdap. utd shingrix. New COVID vaccine 04/18 utd colonoscopy in 10/15. utd mammograms. Assessment & Plan (01/20/2023 10:32 AM CDT): Quant gold neg 11/18 cxr neg 7/20 Neg hepatitis 8/19 May do labs a1qzmcmx. Vaccine recommendations: yearly flu shot utd. She had kxevrxkbz74 in 2013, got a booster in 2020. Had a dose of hrspipx15. utd tdap. utd shingrix. Received COVID vaccines and 3rd dose. utd colonoscopy in 10/15. utd mammograms. Assessment & Plan (09/24/2022 12:18 PM CDT): Quant gold neg 18 cxr neg 7/20 Neg hepatitis 819 May do labs x9svrhry. Vaccine recommendations: yearly flu shot utd. She had orikdmcgv45 in 2013, got a booster in 2019. Had a dose of wekxhzk73. utd tdap. utd shingrix. Received COVID vaccines and 3rd dose. utd colonoscopy in 10/15. utd mammograms. Assessment & Plan (05/27/2022 1:14 PM ELECTRON BEAM WELDER SETTER): Quant gold neg 11/18 cxr neg 7/20 Neg hepatitis 8 May do labs v9afgoqu. Vaccine recommendations: yearly flu shot utd. She had jbybiwqms85 in 2013, got a booster in 2020. Had a dose of qaodtzq17. utd tdap. utd shingrix. Received COVID vaccines and 3rd dose. utd colonoscopy in 10/15. utd mammograms. Assessment & Plan (02/25/2022 12:58 PM CDT): Quant gold neg 11/18 cxr neg 7/20 Neg hepatitis 8/19 May do labs m6yoyfft. Vaccine recommendations: yearly flu shot utd. She had phwesoaxg99 in 2013, got a booster in 2019. Had a dose of jqawjez04. utd tdap. utd shingrix. Received COVID vaccines and 3rd dose. utd colonoscopy in 10/15. utd mammograms. Assessment & Plan (11/26/2021 1:11 PM CDT): Quant gold neg 11/18 cxr neg 7/20 Neg hepatitis 8/19 May do labs p4bheiii. Vaccine recommendations: yearly flu shot utd. She had qcurlglly62 in 2013, got a booster in 2020. Had a dose of tjrnodd84. utd tdap. utd shingrix. Received COVID vaccines and 3rd dose. utd colonoscopy in 10/15. utd mammograms. Assessment & Plan (08/27/2021 1:29 PM ELECTRON BEAM WELDER SETTER): Quant gold neg 11/18 cxr neg 7/20 Neg hepatitis 8/19 May do labs t4iutnuv. Vaccine recommendations: yearly flu shot utd. She had jyhezatjk37 in 2013, got a booster in 2019. Had a dose of vkqnxry04. utd tdap. utd shingrix. Received COVID vaccines and 3rd dose. utd colonoscopy in 10/15. utd mammograms. Assessment & Plan (05/28/2021 1:50 PM ELECTRON BEAM WELDER SETTER): Quant gold neg 11/18 cxr neg 7/20 Neg hepatitis 8/19 May do labs q6ylxtfk. Vaccine recommendations: yearly flu shot utd. She had eqvevadzd65 in 2013, got a booster in 2020. Had a dose of mjdgosa81. utd tdap. utd shingrix. Received COVID vaccines and 3rd dose. utd colonoscopy in 10/15. utd mammograms. Assessment & Plan (02/19/2021 1:09 PM CDT): Quant gold neg 11/18 cxr neg 7/20 Neg hepatitis 8/19 May do labs e5umckrj. Vaccine recommendations: yearly flu shot. She had qohfgnyla00 in 2013, got a booster in 2020. Had a dose of . utd tdap. utd shingrix. Received COVID vaccine. May get booster. utd colonoscopy in 10/15. utd mammograms. Assessment & Plan (11/20/2020 1:39 PM CDT): Quant gold neg 11/18 cxr neg 7/20 Neg hepatitis 8/19 May do labs r7tbhqmx. Vaccine recommendations: yearly flu shot. She had fbsacmbtf87 in 2013, got a booster in 2020. Had a dose of zkvuwbb19. utd tdap. utd shingrix. Received COVID vaccine. utd colonoscopy in 10/15. utd mammograms. Assessment & Plan (08/21/2020 6:52 PM ELECTRON BEAM WELDER SETTER): Quant gold neg 11/18 cxr neg 7/20 Neg hepatitis 8/19 May do labs q4kypavm. Vaccine recommendations: yearly flu shot. She had in 2013, got a booster in 2020. Had a dose of xfxuoce18. utd tdap. utd shingrix. Receiving COVID vaccine. Assessment & Plan (05/15/2020 1:32 PM ELECTRON BEAM WELDER SETTER): Quant gold neg 11/18 cxr neg 7/20 Neg hepatitis 8/19 May do labs w8uaxacl. Vaccine recommendations: yearly flu shot. She had bxlyedhfd18 in 2013, got a booster in 2020. Had a dose of ubepdxj53. utd tdap. utd shingrix. Assessment & Plan (02/15/2020 2:36 PM CDT): Quant gold neg 11/18 cxr neg 7/20 Neg hepatitis 8/19 May do labs e8emgsko. Vaccine recommendations: yearly flu shot. She had rxbousfvp47 in 2013, got a booster in 2020. Had a dose of . utd tdap. utd shingrix. Assessment & Plan (11/15/2019 1:24 PM CDT): Quant gold neg 11/18 cxr neg 8/18. Has order to repeat Neg hepatitis 8 May do labs c0nsczhg. Vaccine recommendations: utd flu shot. She had saaeuqwrw22 in 2013. Had a dose of cyyrprr64. May have booster for qlhdptmof01. utd tdap. utd shingrix. Assessment & Plan (08/16/2019 1:34 PM ELECTRON BEAM WELDER SETTER): Quant gold neg 11/18 cxr neg 8/18 Neg hepatitis 02/12 May do labs x8zuhxkg. Vaccine recommendations: utd flu shot. She had kmzsxrqmi42 in 2012. Had a dose of qsywrqa51. May have booster for nzcozahda98. utd tdap. utd shingrix. Assessment & Plan (05/15/2019 1:05 PM ELECTRON BEAM WELDER SETTER): Quant gold neg 11/18 cxr neg 8/18 Neg hepatitis 02/12 Standing order is good from 10/13 through 04/14. May do labs m9iwgowm. Vaccine recommendations: utd flu shot. She had bgsrrxald30 in 2012. Had a dose of ztkjoui68. May have booster for knfoafwzm53. utd tdap. May have Shingrix. Assessment & Plan (04/13/2019 8:38 AM CDT): Quant gold neg 11/18 cxr neg 8/18 Neg hepatitis 02/12 Standing order is good from 10/13 through 04/14. May do labs u5kczhvb. Vaccine recommendations: utd flu shot. She had nwzoqqapw40 in 2012. Had a dose of . May have booster for sedqxemft62. utd tdap. May have Shingrix. Assessment & Plan (02/08/2019 2:10 PM CDT): Quant gold neg 11/18 cxr neg 8/18 Standing order is good from 10/13 through 04/14. May do labs t6hcndzv. Vaccine recommendations: utd flu shot. She had eteijjthe93 in 2012. Had a dose of pfluqwo12. May have booster for qawahsais22. utd tdap. May have Shingrix. Assessment & Plan (11/10/2018 4:32 PM CDT): Quant gold neg 11/18 cxr neg 8/18 Standing order is good from 10/13 through 10/19. May do labs s0qxjgdd. Vaccine recommendations: utd flu shot. She had in 2012. Should go for Dkvnszo89 now. At least 8 weeks later get booster of xmuycrsyn90 (since immune compromised). Also inquire about availability of Shingrix and may have this. Check with pcp about Tdap status. Hold mtx for 2 weeks following dose of vaccine. Assessment & Plan (08/10/2018 1:48 PM ELECTRON BEAM WELDER SETTER): Quant gold neg 1118 cxr neg 8/18 Standing order is good from 04/13 through 10/13. May do labs m2uriotq. Reviewed vaccine recommendations with pt. utd flu shot. She had elikevvcn64 in 2013. Should go for Xdsjtke74 now. At least 8 weeks later get booster of fbgiiibct46 (since immune compromised). Also inquire about availability [...] 04/13 Assessment & Plan (07/21/2017 11:22 AM ELECTRON BEAM WELDER SETTER): Quant gold neg 12/17. Assessment & Plan (04/21/2017 9:31 PM CDT): neg quantiferon 11/16 neg cxr 8/17 utd flu and pneumovax Assessment & Plan (01/21/2017 9:23 AM CDT): neg quantiferon 11/16 neg cxr 09/2015 utd flu and pneumovax [...] On simponi aria, mtx Assessment & Plan (02/21/2025 11:21 AM CDT): cdai = 2, remission Changed from Humira to Simponi Aria due to Medicare several years ago and continues to do well overall. Plan to continue with Simponi Aria n9nwqme. Continue mtx 15mg weekly. Continue routine labs. F/u 3 months. Assessment & Plan (10/16/2024 3:46 PM CDT): cdai = 1, remission Changed from Humira to Simponi Aria due to Medicare several years ago and continues to do well overall. Plan to continue with Simponi Aria h2eumwg. Continue mtx 15mg weekly. Continue routine labs. F/u 3 months. Assessment & Plan (07/19/2024 12:45 PM ELECTRON BEAM WELDER SETTER): cdai = 3, remission Changed from Humira to Simponi Aria due to Medicare several years ago and continues to do well overall. Plan to continue with Simponi Aria v8mufmy. Continue mtx 15mg weekly. Continue routine labs. F/u 3 months. Assessment & Plan (04/19/2024 11:02 AM CDT): cdai = 0, remission Changed from Humira to Simponi Aria due to Medicare several years ago and continues to do well overall. Plan to continue with Simponi Aria x0esktu. Continue mtx 15mg weekly. Continue routine labs. F/u 3 months. Assessment & Plan (01/19/2024 3:03 PM CDT): cdai = 0, remission Changed from Humira to Simponi Aria due to Medicare several years ago and continues to do well overall. Plan to continue with Simponi Aria i2qdowv. Continue mtx 15mg weekly. Continue routine labs. F/u 3 months. Assessment & Plan (10/20/2023 10:24 AM CDT): cdai = 1, remission Changed from Humira to Simponi Aria due to Medicare several years ago and continues to do well overall. Plan to continue with Simponi Aria t8dopxi. Continue mtx 15mg weekly. Continue routine labs. F/u 3 months. Assessment & Plan (07/21/2023 1:33 PM ELECTRON BEAM WELDER SETTER): cdai = 1, remission Changed from Humira to Simponi Aria due to Medicare several years ago and continues to do well overall. Plan to continue with Simponi Aria q7giciy. Continue mtx 15mg weekly. Continue routine labs. F/u [address] Carrasco. Assessment & Plan (04/19/2023 11:07 AM CDT): cdai = 1, remission Changed from Humira to Simponi Aria due to Medicare and continues to do well overall. Plan to continue with Simponi Aria m1urfqy. Continue mtx 15mg weekly. Continue routine labs. F/u 3 months. Assessment & Plan (01/20/2023 11:20 AM CDT): cdai = 0, remission Changed from Humira to Simponi Aria due to Medicare and continues to do well overall. Plan to continue with Simponi Aria s4edrtr. Continue mtx 15mg weekly. Continue routine labs. F/u [address] Almaraz. Assessment & Plan (09/24/2022 1:59 PM CDT): cdai = 1, remission Changed from Humira to Simponi Aria due to Medicare and continues to do well overall. Plan to continue with Simponi Aria w8srtpw. Continue mtx 15mg weekly. Continue routine labs. F/u 3 months. Assessment & Plan (05/27/2022 1:14 PM ELECTRON BEAM WELDER SETTER): cdai = , low activity/remission Changed from Humira to Simponi Aria due to Medicare and continues to do well overall. Plan to continue with Simponi Aria v2pyvck. Continue mtx 15mg weekly. Continue routine labs. F/u 3 months. Assessment & Plan (02/25/2022 2:50 PM CDT): cdai = 0, low activity/remission Changed from Humira to Simponi Aria due to Medicare and continues to do well overall. Plan to continue with Simponi Aria x6hrbux. Continue mtx 15mg weekly. Continue routine labs. F/u 3 months. Assessment & Plan (11/26/2021 4:50 PM CDT): cdai = 4, low activity Changed from Humira to Simponi Aria due to Medicare and continues to do well overall. Plan to continue with Simponi Aria k3yqtfw. Continue mtx 15mg weekly. Continue routine labs. F/u 3 months. Assessment & Plan (08/27/2021 1:48 PM ELECTRON BEAM WELDER SETTER): cdai = 2, remission Changed from Humira to Simponi Aria due to Medicare and continues to do well overall. Plan to continue with Simponi Aria p9klinq. Continue mtx 15mg weekly. Continue routine labs. F/u 3 months. Assessment & Plan (05/28/2021 1:52 PM ELECTRON BEAM WELDER SETTER): cdai = 3, remission Changed from Humira to Simponi Aria due to Medicare and continues to do well overall. Plan to continue with Simponi Aria o5alzpi. Continue mtx 15mg weekly. Continue routine labs. F/u 3 months. Assessment & Plan (02/19/2021 1:11 PM CDT): cdai = 1, remission Changed from Humira to Simponi Aria due to Medicare and continues to do well overall. Plan to continue with Simponi Aria j9gqpfq. Continue mtx 15mg weekly. Continue routine labs. F/u 3 months. Assessment & Plan (11/20/2020 1:41 PM CDT): cdai = 0, remission Changed from Humira to Simponi Aria due to Medicare and continues to do well overall. Plan to continue with Simponi Aria o6vngpk. Continue mtx 15mg weekly. Continue routine labs. F/u 3 months. Assessment & Plan (08/21/2020 6:51 PM ELECTRON BEAM WELDER SETTER): cdai = 0, remission Changed from Humira to Simponi Aria due to Medicare and continues to do well overall. Plan to continue with Simponi Aria e3ibbub. Continue mtx 15mg weekly. Continue routine labs. F/u 3 months. utd flu shot. utd and shingrix. Had booster of jgzshumpw25 in 08/16. Had covid vaccine. Advised to hold mtx for 1 week following vaccine administration. Assessment & Plan (05/15/2020 1:35 PM ELECTRON BEAM WELDER SETTER): cdai = 2, remission Changed from Humira to Simponi Aria due to Medicare and continues to do well overall. Plan to continue with Simponi Aria d5sweqy. Continue mtx 15mg weekly. Continue routine labs via standing order. F/u 3 months. utd flu shot. utd and shingrix. Had booster of qsgjtfixk78 in 08/16. Assessment & Plan (02/15/2020 2:35 PM CDT): cdai = 3, remission Changed from Humira to Simponi Aria due to Medicare. Plan to continue with Simponi Aria d9abbju. Continue mtx. utd labs. She is asking if she can get her labs done when here for infusions, t0tdbrp. I put in a standing order for this. F/u 3 months. utd flu shot. utd hqkqqma11 and shingrix. Had booster of gigaaehqe15 in 08/16. Assessment & Plan (11/15/2019 1:24 PM CDT): cdai = 2, remission Changed from Humira to Simponi Aria due to Medicare. Plan to continue with Simponi Aria u3mllov. Continue mtx. utd labs. Reviewed recent labs which were normal. Continue every 3 months. F/u 3 months. utd flu shot. To get booster of kwbtoevfy74. utd and shingrix. Assessment & Plan (08/16/2019 1:38 PM ELECTRON BEAM WELDER SETTER): cdai = 0 Changed from Humira to Simponi Aria due to Medicare. Plan to continue with Simponi Aria z2xkmkt. Continue mtx. utd labs. Will give order to do labs again in 3 months. F/u 3 months. utd flu shot. To get booster of oribzeqxv65. utd gersnay64 and shingrix. Assessment & Plan (05/15/2019 1:19 PM ELECTRON BEAM WELDER SETTER): cdai = 3 Recently changed from Humira to Simponi Aria due to Medicare. Plan to continue with Simponi Aria q4bghgf. Continue mtx. utd labs. F/u 3 months. utd flu shot. To get booster of purntyibt69 and shingrix. Assessment & Plan (04/13/2019 4:36 PM CDT): Recently changed from Humira to Simponi Aria due to Medicare. Has a rash that started after simponi but I do not feel it is a reaction. See below. Will still plan to continue with Simponi Aria u1mzpvl. Continue mtx. utd labs. Keep next visit for 1 month. Assessment & Plan (02/08/2019 2:08 PM CDT): cdai = 3 Doing very well on mtx and humira at this time. Due to starting Medicare soon will plan to change to Simponi arimarie when out of her current supply of Humira. utd flu shot. utd labs. May do standing order r7zkszri since stable. f/u 3 months. Assessment & Plan (11/10/2018 4:31 PM CDT): cdai = 3 Doing very well on mtx and humira at this time. Will cont present meds. utd flu shot. utd labs. May do standing order b0dxodrh since stable. f/u 3 months. She will be going on Medicare soon when her retires and we may try changing to simponi aria at that time for better coverage. Assessment & Plan (08/10/2018 1:40 PM ELECTRON BEAM WELDER SETTER): cdai = 5 Doing very well on mtx and humira at this time. Will cont present meds. utd flu shot. utd labs. May do standing order p0tikrve since stable. f/u 3 months. Assessment & [...] months Assessment & Plan (07/21/2017 11:21 AM ELECTRON BEAM WELDER SETTER): cdai 3. Doing very well on mtx [...] Encounters Date Type Department Care Team Description 02/22/2025 Results Follow-Up [facility] [address] [place] [phone] Ange Dempsey PA CBC with auto differential, Comprehensive metabolic panel, CRP (acute phase), Erythrocyte sedimentation rate 02/21/2025 9:45 AM CDT Office Visit [facility] [address] [place] [phone] Ange Dempsey PA Seropositive rheumatoid arthritis [...] on file Legal Sex Female 7:17 AM ELECTRON BEAM WELDER SETTER Gender Identity Female 02/22/2021 1:14 PM CDT Sexual Orientation Not on file Obstetrics History Last Filed Vital Signs Vital Sign Reading Time Taken Comments Blood Pressure 130/86 02/21/2025 9:44 AM CDT Pulse 81 02/21/2025 9:44 AM CDT Temperature 36.6 C (97.8 F) 08/27/2021 1:22 PM ELECTRON BEAM WELDER SETTER Respiratory Rate - - Oxygen Saturation 98% 02/21/2025 9:44 AM CDT Inhaled Oxygen Concentration - - Weight 96.1 kg (211 lb 12.8 oz) 02/21/2025 9:44 AM CDT Height 165.1 cm (5' 5) 02/21/2025 9:44 AM CDT Body Mass Index 35.25 02/21/2025 9:44 AM CDT Plan of Treatment Health Maintenance Due Date Last Done Comments Colon Cancer Screening-Colonoscopy 1955 Depression Screening 1955 Fall Risk Assessment 1955 Osteoporosis Screening-Bone Density Scan 1955 Hepatitis B Screening 1971 Well Visit 65+ 2018 Covid-19 Vaccine (2 - Pfizer risk series) 05/06/2022 04/15/2022 Influenza Vaccine (#1) 2025 , 03/11/2020, 03/03/2020, Additional history exists Breast Cancer Screening-Mammogram 03/22/2025 03/22/2024, 03/15/2023, 02/18/2022, Additional history exists DTaP/Tdap/Td Vaccine (2 - Td or Tdap) 06/29/2026 06/29/2016 Hepatitis C Screening Completed 02/16/2019 Zoster Vaccine Completed 08/03/2019, 04/27, 04/27/2012 Pneumococcal vaccine 65+ Completed 020, 08/17/2018, 08/29/2012, Additional history exists Procedures Procedure Name Priority Date/Time Associated Diagnosis Comments ERYTHROCYTE SEDIMENTATION RATE Routine 02/21/2025 10:21 AM CDT Seropositive rheumatoid arthritis of multiple sites (HCC) High risk medications (not anticoagulants) long-term use CRP (ACUTE PHASE) Routine 02/21/2025 10: 21 AM CDT Seropositive rheumatoid arthritis of multiple sites (HCC) High risk medications (not anticoagulants) long-term use COMPREHENSIVE METABOLIC PANEL Routine 02/21/2025 10:21 AM CDT Seropositive rheumatoid arthritis of multiple sites (HCC) High risk medications (not anticoagulants) long-term use CBC WITH AUTO DIFFERENTIAL Routine 02/21/2025 10:21 AM CDT Seropositive rheumatoid arthritis of multiple [...] Recently Relevant to Health Maintenance Results * (ABNORMAL) CBC with auto differential (02/21/2025 10:21 AM CDT) WBC 7.6 3.8 - 10.8 Thousand/u L [facility] RBC, POC 4.39 3.80 - 5.10 Million/uL [facility] Hgb 14.1 11.7 - 15.5 g/dL [facility] Hct 44.1 35.0 - 45.0 % [facility] MCV 100.5(H) 80.0 - 100.0 fL [facility] MCH 32.1 27.0 - 33.0 pg [facility] MCHC 32.0 32.0 - 36.0 g/dL [facility] Comment: For adults, a slight decrease in the calculated MCHC value (in the range of 30 to 32 g/dL) is most likely not clinically significant; however, it should be interpreted with caution in correlation with other red cell parameters and the patient's clinical condition. Rdw 13.1 11.0 - 15.0 % [facility] Platelets 196 140 - 400 Thousand/u L [facility] MPV 11.0 7.5 - 12.5 fL [facility] Neutrophils, abs 5,335 1,500 - 7,800 cells/uL [facility] Lymphocytes, abs 1,626 850 - 3,900 cells/uL [facility] Monocyte abs 441 200 - 950 cells/uL [facility] Eosinophils, abs 144 15 - 500 cells/uL [facility] Basophils, abs 53 0 - 200 cells/uL [facility] Neutrophils 70.2 % [facility] Lymphocyte pct 21.4 % [facility] Monocytes 5.8 % [facility] Eosinophils 1.9 % [facility] Basophils 0.7 % [facility] Blood 02/21/2025 10:2 1 AM CDT 02/21/2025 10:21 AM CDT Ange Littlejohn [place] LAB BLOOD ORDERABLES Fin al Result Performing Organization Address [facility] de Phone Number [facility] [address] [place] [address] * Erythrocyte sedimentation rate (02/21/2025 10:21 AM CDT) Erythrocyte sedimentation rate 11 < OR = 30 mm/h [facility] Blood 02/21/2025 10:2 1 AM CDT 02/21/2025 10:21 AM CDT Ange Littlejohn [place] LAB BLOOD ORDERABLES Fin al Result Performing Organization Address [facility] de Phone Number [facility]ST [facility] [address] [place] [address] * CRP (acute phase) (02/21/2025 10:21 AM CDT) C-RP <3.0 <8.0 mg/L [facility] Blood 02/21/2025 10:2 1 AM CDT 02/21/2025 10:21 AM CDT Ange Littlejohn [place] LAB BLOOD ORDERABLES Fin al Result [facility] [address] [address] * (ABNORMAL) Comprehensive metabolic panel (02/21/2025 10:21 AM CDT) Glucose 100(H) 65 - 99 mg/dL [facility] Comment: Fasting reference interval For someone without known diabetes, a glucose value between 100 and 125 mg/dL is consistent with prediabetes and should be confirmed with a follow-up test. BUN 10 7 - 25 mg/dL [facility] Creatinine 0.72 0.60 - 1.00 mg/dL [facility] eGFR 89 > OR = 60 mL/min/1.7 3m2 [facility] BUN/creat ratio SEE NOTE: 6 - 22 (calc) [facility] Comment: Not Reported: BUN and Creatinine are within reference range. Sodium 140 135 - 146 mmol/L [facility] Potassium, pl 4.7 3.5 - 5.3 mmol/L [facility] Chloride 103 98 - 110 mmol/L [facility] CO2 31 20 - 32 mmol/L [facility] Calcium 10.0 8.6 - 10.4 mg/dL [facility] Protein, sr 7.2 6.1 - 8.1 g/dL [facility] Albumin 4.4 3.6 - 5.1 g/dL [facility] GLOBULIN 2.8 1.9 - 3.7 g/dL (calc) [facility] Alb/glob ratio 1.6 1.0 - 2.5 (calc) [facility] Bilirubin, total 1.3(H) 0.2 - 1.2 mg/dL [facility] Alk phos 89 37 - 153 U/L [facility] AST 19 10 - 35 U/L [facility] ALT (SGPT) 15 6 - 29 U/L [facility] Blood 02/21/2025 10:2 1 AM CDT 02/21/2025 10:21 AM CDT Ange YING LAB BLOOD ORDERABLES Fin al Result [facility] [address] [address] [address] * Screening Mammogram Bilateral W Ivan (03/22/2024 9:34 AM CDT) Anatomical Region Laterality Modality Breast Bilateral Mammography Narrative 03/22/2024 2:11 PM CDT Mammogram Technique: Bilateral Digital Breast Tomosynthesis, Bilateral C-view 2D Screening mammogram. Views obtained: bilateral craniocaudal and bilateral mediolateral oblique. Computer Aided Detection was performed. Mammogram Findings: The present examination has been compared to prior imaging studies performed at [facility] on 12/26/2020, 02/17/2022 and 03/15/2023. There are [...] compared to prior imaging studies performed at [facility] on 12/26/2020, 02/17/2022 and 03/15/2023. There are [...] with a HCV Nucleic Acid Amplification test (005109). Blood specimen (specimen) 02/16/2019 10:01 AM CDT 02/16/2019 Narrative [facility] - 02/17/2019 6:08 AM CDT Performed at: - [facility] [place] [id number] Speaker Wirer: Derek Ryan PhD, Phone: [phone] Ange YING LAB MICROBIOLOGY - GENER AL ORDERABLES Final Result [facility] from Last 3 Months or Most Recently Relevant to Health [place] [address] MEDICARE [facility]IC[facility] [place] [address] [facility] MEDICARE MEDICARE [facility] [place] [address] MEDICARE [facility] Care Teams Sustainment Logistics Analyst Relationship Specialty Start Date End Date Tello Avelar PA [address] [place] [address] [place] [address] PCP - General Internal Medicine 11/17/23 Allen Carrasco MD [address] [place] [address] Consulting Physician Rheumatology 07/19/23
--- OUTSIDE RECORDS SUMMARY | 2025-02-26 13:38 | XMS_ITS | Clinical Summary ---
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 Gender Identity Not on file Sexual Orientation [...] 11:10 AM CDT Height 165.1 cm (5' 5) 11/01/2018 11:10 AM CDT Body Mass Index [...] 08/29/2012 OSTEOPOROSIS SCREENING 2018 INFLUENZA VACCINE (#1) 2025 04/07/2015 RSV VACCINE (60+ or ) (1 - 1-dose 75+ series) 2028 Medical Devices Implanted Type Area Alternative Energy Engineer Device Identifier Shelf Expiration Date Model / Serial / Lot Log [id number] - Cement - 1 - Cement [place] G-Hv 40g [id number] Implanted:Qty: 1 on 07/30/2010 at [facility] Cement Right: Knee [employer] 12/26/2011 [id number] / / [id number] Log [id number] - Cement - 1 - Cement [place] G-Hv 40g [id number] Implanted:Qty: 1 on 04/05/2011 at [facility] Cement Left: Knee [employer] 08/24/2012 [id number] / / [id number] Description:liquid ref [id number] 07-31, Exp 2012-12 Log 71954 - Biomet BettingXpertguard Complete Knee System - 1 - Comp Fem Vngrd Cr Intrlk Rt 65mm [id number] Implanted:Qty: 1 on 07/30/2010 at [facility] Knee Right: Knee [employer] 04/27/2020 [id number] / / [id number] Log 88032 - Biomet Vanguard Complete Knee System - 1 - Plate Tib Cocr Finned 75mm [id number] Implanted:Qty: 1 on 07/30/2010 at [facility] Knee Right: Knee [employer] 03/27/2020 [id number] / / [id number] Bearing Tib Vngrd Epoly Cr [id number] Implanted:Qty: 1 on 07/30/2010 at [facility] Knee Right: Knee [employer] 04/27/2015 [id number] / / [id number] Description:Epoly bearing is not part of total knee cap pricing,will be charged separately. Log [id number] - Biomet Vanguard Complete Knee System - 1 - Comp Fem Vngrd Cr Intrlk Lt 65mm [id number] Implanted:Qty: 1 on 04/05/2011 at [facility] Knee Left: Knee [employer] 02/24/2021 [id number] / / [id number] Log [id number] - Biomet Vanguard Complete Knee System - 1 - Stem Comp Primary Finned [id number] Implanted:Qty: 1 on 04/05/2011 at [facility] Knee Left: Knee [employer] 07/27/2020 [id number] / / [id number] Description:use revision par t due to tibial defect.and is not part of total knee cap pricing.will be charged separately. Log [id number] - Biomet Vanguard Complete Knee System - 1 - Tray Tib Intlk Ave 71mm [id number] Implanted:Qty: 1 on 04/05/2011 at [facility] Knee Left: Knee [employer] 01/24/2021 [id number] / / [id number] Description:used revision pa rt due to tibial defect,and is not part of total knee cap pricing,will be charged separately. E-Poly Implanted:Qty: 1 on 04/05/2011 at [facility] Left: Knee [employer] 03/26/2016 [id number] / / [id number] Description:Epoly bearing is not part of total knee cap pricing,will be charged separately. [place] [address] [address] [place] [address] OPTIONS PPO [phone] Advance Directives For more information, please contact: [phone] * Full Code (Latest Code Status on [...] 11:26 AM 12/17/2010 12:43 PM Care Teams Scientific Programmer Relationship Specialty Start Date End Date Mimi Verma MD [address] [address] PCP - General 06/13/15
--- OUTSIDE RECORDS SUMMARY | 2025-02-26 13:38 | XMS_ITS | Encounter Summary ---
Author Organization [facility] Address [address] [place] [address] Care Team Providers Care Video Editing Internship Name Role Phone Mimi Verma MD Primary Care Provider [phone] Encounter Details Date Type Department Care Team (Late st Contact Info) Description 08/10/2006 Inpatient Historical [facility] Jay Glover MD [address] [place] [address] Ayo Steele MD [address] [place] [address] Other Wrist Sprain and Strain (Primary Dx) Social History Tobacco Use Types Packs/Day Years Used Date Smoking Tobacco: Never Assessed Comments Unknown Sex and Gender Information Value Date Recorded Sex Assigned at Not on file 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
--- OUTSIDE RECORDS SUMMARY | 2025-02-26 13:38 | XMS_ITS | Clinical Summary ---
Author Organization [facility] Address [address], [facility] [address] [place] [address] Phone Care Team Providers Care Power Manager Name Role Phone Derek Joy Vinod ZHOU Primary Care Provider +1- [phone] Allergies Active Allergy Reactions Criticality Noted Date [...] (MULTIVITAMIN PO) Take by mouth daily. Active Pioneer-3 Fatty Acids (FISH OIL PO) Take by [...] 11:00 AM CDT Height 167.6 cm (5' 6) 09/30/2020 11:00 AM CDT Body Mass Index 37.12 09/30/2020 11:00 AM CDT Plan of Treatment Health Maintenance Due Date Last Done Comments DEXA Bone Density 1955 Hepatitis C Virus (HCV) Screening 1955 Mammogram 1955 TdaP Immunization 1955 SARS-COV-2 Immunization (#1) 1958 Cologuard 1998 Immunochemical Fecal Occult Blood 1998 Pneumococcal Immunization (50+ years) (1 of 1 - PCV) 2003 06/27/2011 Respiratory Syncytial Virus (RSV) Immunization (Adult) (1 - Risk 60-74 years 1-dose series) 2013 Influenza Immunization (#1) 02/25/202502/25, 03/03/2020, 05/17/2019, Additional history exists Colonoscopy 10/06/2025 10/06/2020 Colorectal Cancer Screening 10/06/2025 Pneumococcal Immunization Combined Discontinued 06/27/2011 Zoster Immunization Completed 08/03/2019, 9 Hepatitis B Immunization Aged Out No longer eligible based on patient's age to complete this topic Human Papillomavirus (HPV) Immunization Aged Out No longer eligible based on patient's age to complete this topic Meningococcal Immunization (ACWY) Aged Out No longer eligible based on patient's age to complete this topic Rotavirus Immunization Aged Out No lo nger eligible based on patient's age to complete this topic Insurance MEDICARE Care Teams Power Manager Relationship Specialty Start Date End Date Joy Reed APRN PCP - General Advanced Practice Nurse 10/14/20
--- OUTSIDE RECORDS SUMMARY | 2025-02-26 13:38 | XMS_ITS | Encounter Summary ---
Author Organization [facility] Address [address] [place] [address] Phone Care Team Providers Care Billing And Insurance Coordinator Name Role Phone Allen Carrasco MD Unavailable [phone] Tello Avelar Primary Care Provider + Encounter Details Date Type Department Care Team (Latest Contact Info) Description 02/22/2025 Results Follow-Up [facility] [address] [place] [address] Ange Dempsey PA [address] [place] [address] CBC with auto differential, Comprehensive metabolic panel, CRP (acute phase), Erythrocyte sedimentation rate Social History Tobacco Use Types Packs/Day Years Used Date Smoking Tobacco: Never Smokeless Tobacco: Never Alcohol Use Standard Drinks/Week Comments Yes 0 (1 standard drink = 0.6 oz pur e alcohol) socially Comments No Sex and Gender Information Value Date Recorded Sex Assigned at Not on file Legal Sex Female 7:17 AM RUG CLEANER HAND Gender Identity Female 02/22/2021 1:14 PM CDT Sexual Orientation Not on file documented as of this encounter Plan of Treatment Not on file documented as of this encounter Visit Diagnoses Not on filedocumented in this encounter Care Teams Billing And Insurance Coordinator Relationship Specialty Start Date End Date Tello Avelar PA [facility] [place] [address] PCP - General Internal Medicine 11/17/23 Allen Carrasco [place] [address] Consulting Physician Rheumatology 07/19/23 documented as of this encounter
--- OUTSIDE RECORDS SUMMARY | 2025-02-26 13:38 | XMS_ITS | Clinical Summary ---
Author Organization [facility] Address [address] [place] [address] Care Team Providers Care Shotblast Operator Name Role Phone Joy Reed WINNIE-PAYROLL AND BENEFITS MANAGER Primary Care Provider + Source Comments [facility],non-owned Affiliates and Associated Physician Practices is amultiple site organization consisting of ambulatory clinics and hospital sitesin [place], [place], [place] and [place]. This disclosure is being madepursuant to the Care Everywhere program and may not contain all information available regarding this patient. Last updated 18.[facility] Allergies Active Allergy Reactions Criticality Noted Date Comments Sulfa Drugs Urticaria Medium 12/27/2018 Medications * Be aware that medications may not be up to date on this document. Alwaysverify current medications with the patient. simvastatin (ZOCOR) 20 MG tablet Take 20 mg by mouth once daily Active RABEprazole EC (ACIPHEX) 20 MG tablet 20 mg 3 Active Psyllium (METAMUCIL PO) 7 Active [place]-3 Fatty Acids (FISH OIL PO) take 1 Capsule by Oral route every day 3 Active methotrexate 2.5 MG tablet Take 15 mg by mouth every 7 days 9 Active adalimumab (HUMIRA PEN) 40 MG/0.4ML injection INJECT 40MG SUBCUTANEOUSLY EVERY 14 DAYS 9 Active FLUoxetine (PROZAC) 40 MG capsule Take 40 mg by mouth once daily Active diclofenac sodium EC (VOLTAREN) 75 MG tablet 75 mg 4 Active Calcium Carb-Cholecalc iferol (CALCIUM + D3 PO) take 1 Capsule by Oral route every day 2 Active Active Problems No known active problems Social History Tobacco Use Types Packs/Day Years Used Date Smoking Tobacco: Never Smokeless Tobacco: Never Comments No Sex and Gender Information Value Date Recorded Sex Assigned at Not on file Legal Sex Female 1:56 PM STOCK CHECKER Gender Identity Not on file Sexual Orientation [...] 11:03 AM CDT Height 165.1 cm (5' 5) 12/27/2018 11:03 AM CDT Body Mass Index [...] 2003 SCREENING FOR DIABETES 10/17/2018 MAMMOGRAM 11/13/2020 11/13/2018 DEPRESSION SCREENING 06/27/2024 COVID-19 VACCINE (1 - 2023-2 5 season) 2025 INFLUENZA VACCINE (#1) 2025 04/07/2015 Respiratory Syncytial Virus (RSV) Vaccine Pt: or [...] to complete this topic MENINGOCOCCAL (Group B) VACC INE SHARED DECISION-MAKING Aged Out No longer eligibl e based on patient's age to complete this topic MENINGOCOCCAL GROUPS A/C/Y/W VACCINE Aged Out No longer eligible b ased on patient's age to complete this topic Insurance [facility] MEDICARE [facility] [place] [id number] SELF PAY NO INSURANCE Member Subscriber Plan / Payer (Ef fective for All Dates) Name:Betzy Long Member ID:Not on file Relation to Subscriber:Not on file Name:BETZY LONG Subscriber ID:Not on file (Home) Address: [place] [address] Payer ID:Not on file Group ID:Not on file Type:Self Pay Address: [place], [place] MEDICARE [facility] [place] [address] Care Teams Shotblast Operator Relationship Specialty Start Date End Date Joy Reed APRN-CNP [address] [address] PCP - General 10/17/18
== END 2025-02-26 13:27 | disposition home or self-care (01) ==
LOC: ANHFOHIMG 13:27
PROVIDERS: PCP Physician Assistant; Visit Provider Nurse Practitioner Adult Health
DX: M81.0 Age-related osteoporosis without current pathological fracture (principal); M85.852 Other specified disorders of bone density and structure, left thigh; M85.851 Other specified disorders of bone density and structure, right thigh
CPT/HCPCS: 77080

== ENCOUNTER 2025-05-27 13:29 | Emergency (ER) | payer MEDICARE, OTHER, SELFPAY ==
--- NOTE | ~2025-05-27 | XR_ITS ---
Examination: XR finger 1st RT min 2V Clinical History: injury, lac Comparison: None Technique: 3 views right first finger Findings/impression: 1. No radiopaque foreign body. 2. No fracture or acute bony abnormality. 3. Degenerative changes MCP joint with mild subluxation. Reviewed, dictated and finalized at location [facility]
[2025-05-27 13:39] VITALS: BP 135/56; PULSE 72; RESP 16; TEMP 36.4; O2SAT 100
--- OUTSIDE RECORDS SUMMARY | 2025-05-27 14:34 | XMS_ITS | Encounter Summary ---
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
--- OUTSIDE RECORDS SUMMARY | 2025-05-27 14:34 | XMS_ITS | Clinical Summary ---
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 Gender Identity Not on file Sexual Orientation [...] series) 2028 Medical Devices Implanted Type Area Clinique Counter Manager Device Identifier Shelf Expiration Date Model / Serial / Lot Log [id number] - Cement - 1 - Cement [place] G-Hv 40g [id number] Implanted:Qty: 1 on 07/30/2010 at [facility] Cement Right: Knee [employer] 12/26/2011 [id number] / / [id number] Log [id number] - Cement - 1 - Cement [place] G-Hv 40g [id number] Implanted:Qty: 1 on 04/05/2011 at [facility] Cement Left: Knee [employer] 08/24/2012 [id number] / / [id number] Description:liquid ref [id number] Exp 2012-12 Log 37859 - Biomet Vanguard Complete Knee System - 1 - Comp Fem Vngrd Cr Intrlk Rt 65mm [id number] Implanted:Qty: 1 on 07/30/2010 at [facility] Knee Right: Knee [employer] 04/27/2020 [id number] / / [id number] Log [id number] - Biomet Vanguard Complete Knee System - 1 - Plate Tib Cocr Finned 75mm [id number] Implanted:Qty: 1 on 07/30/2010 at [facility] Knee Right: Knee [employer] 03/27/2020 [id number] / / [id number] Bearing Tib Vngrd Epoly Cr [id number] Implanted:Qty: 1 on 07/30/2010 at [facility] Knee Right: Knee [employer] 04/27/2015 [id number] / / [id number] Description:Epoly bearing is not part of total knee cap pricing,will be charged separately. Log [id number] - Biomet Vanguard Complete Knee System - 1 - Comp Fem Vngrd Cr Intrlk Lt 65mm [id number] Implanted:Qty: 1 on 04/05/2011 at [facility] Knee Left: Knee [employer] 02/24/2021 [id number] / / [id number] Log [id number] - Biomet Vanguard Complete Knee System - 1 - Stem Comp Primary Finned [id number] Implanted:Qty: 1 on 04/05/2011 at [facility] Knee Left: Knee [employer] 07/27/2020 [id number] / / [id number] Description:use revision par t due to tibial defect.and is not part of total knee cap pricing.will be charged separately. Log [id number] - Biomet Vanguard Complete Knee System - 1 - Tray Tib Intlk Ave 71mm [id number] Implanted:Qty: 1 on 04/05/2011 at [facility] Knee Left: Knee [employer] 01/24/2021 [id number] / / [id number] Description:used revision pa rt due to tibial defect,and is not part of total knee cap pricing,will be charged separately. E-Poly Implanted:Qty: 1 on 04/05/2011 at [facility] Left: Knee [employer] 03/26/2016 [id number] / / [id number] Description:Epoly bearing is not part of total knee cap pricing,will be charged separately. Insurance [facility] OPTIONS PPO [id number] Advance Directives For more information, please contact: [phone] * Full Code (Latest Code Status on [...] 11:26 AM 12/17/2010 12:43 PM Care Teams Caramel Cutter Helper Relationship Specialty Start Date End Date Mimi Verma MD [address] [address] PCP - General 06/13/15
--- OUTSIDE RECORDS SUMMARY | 2025-05-27 14:34 | XMS_ITS | Clinical Summary ---
Author Organization [facility] Address [address] [place] [address] Care Team Providers Care Bet Taker Name Role Phone Joy Reed WINNIE-DELINQUENT ACCOUNT CLERK Primary Care Provider + Source Comments [facility],non-owned Affiliates and Associated Physician Practices is amultiple site organization consisting of ambulatory clinics and hospital sitesin [place], [place], [place] and [place]. This disclosure is being madepursuant to the Care Everywhere program and may not contain all information available regarding this patient. Last updated 18.[facility] Allergies Active Allergy Reactions Criticality Noted Date Comments Sulfa Drugs Urticaria Medium 12/27/2018 Medications * Be aware that medications may not be up to date on this document. Alwaysverify current medications with the patient. 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 Gender Identity Not on file Sexual Orientation [...] SCREENING 1955 MEDICARE AWV 12 MONTHS 1953 COVID-19 VACCINE (#1) 1958 HEPATITIS C SCREENING 07/04/1971 DTAP/TDAP/TD VACCINES (1 - Tdap) 1972 PNEUMOCOCCAL VACCINE 50+ (1 of 1 - PCV) 2003 Respiratory Syncytial Virus (RSV) Vaccine Pt: or over 60 yrs (1 - Risk 50-74 years 1-dose series) 2003 ZOSTER VACCINE (1 of 2) 2003 SCREENING FOR DIABETES 10/17/2018 MAMMOGRAM 11/13/2020 11/13/2018 DEPRESSION SCREENING 06/27/2024 INFLUENZA VACCINE (#1) 2025 04/07/2015 HEPATITIS B VACCINE Aged Out No longe [...] patient's age to complete this topic Insurance [facility] Address: [facility] [address] [place] [address] MEDICARE [facility] ATTN [facility] [place] [id number] SELF PAY NO INSURANCE Member Subscriber Plan / Payer (Ef fective for All Dates) Name:Betzy Long Member ID:Not on file Relation to Subscriber:Not on file Name:BETZY LONG Subscriber ID:Not on file (Home) Address: [place] [address] Payer ID:Not on file Group ID:Not on file Type:Self Pay Address: [place], [place] [address] [facility] [place] [address] Care Teams Bet Taker Relationship Specialty Start Date End Date Joy Reed APRN-CNP [address] [address] PCP - General 10/17/18
--- OUTSIDE RECORDS SUMMARY | 2025-05-27 14:34 | XMS_ITS | Encounter Summary ---
Author Organization [facility] Address [address] [place] [address] Care Team Providers Care Watch Caser Name Role Phone Mimi Verma MD Primary Care Provider +1- [phone] Encounter Details Date Type Department Care Team (Late st Contact Info) Description 08/10/2006 Inpatient Historical [facility] Jay Glover MD [address] [place] [address] Ayo Steele MD [address] [place] [address] Other Wrist Sprain and Strain (Primary Dx) Social History Tobacco Use Types Packs/Day Years Used Date Smoking Tobacco: Never Assessed Comments Unknown Sex and Gender Information Value Date Recorded Sex Assigned at Not on file 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
--- OUTSIDE RECORDS SUMMARY | 2025-05-27 14:35 | XMS_ITS | Clinical Summary ---
Author Organization [facility] Address [address] [facility] [place] [address] [place] [address] Phone Care Team Providers Care Internal Audit Senior Manager Name Role Phone Derek Joy Vinod ZHOU Primary Care Provider +1- [phone] Allergies Active Allergy Reactions Criticality Noted Date [...] (MULTIVITAMIN PO) Take by mouth daily. Active [place]-3 Fatty Acids (FISH OIL PO) Take by [...] Virus (RSV) Immunization (Adult) (1 - Risk 50-74 years 1-dose series) 2003 Medicare Initial AWV [id number] 06/27/2019 Influenza Immunization (#1) 02/25/202502/25, 03/03/2020, 05/17/2019, Additional [...] complete this topic Insurance MEDICARE Care Teams Internal Audit Senior Manager Relationship Specialty Start Date End Date Joy Reed APRN PCP - General Advanced Practice Nurse 10/14/20
--- OUTSIDE RECORDS SUMMARY | 2025-05-27 14:35 | XMS_ITS | Clinical Summary ---
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 Sulfa (Sulfonamide Antibiotics) Hives High Reaction: hives, , Sulfanilamide Medications multivit-minera ls-ferrous fum (MULTI VITAMIN) 9 mg iron/15 mL liquid take 1 by Oral route every day 0 0 03/19/2013 Active omega 4-rnc-jei-fish oil (FISH OIL) 100-160-1,000 mg capsule take [...] minutes at weeks 0 and 4, then y4pvgkg 02/08/2019 Active hydrOXYzine (ATARAX) 50 mg tablet [...] acid (FOLVITE) 1 mg tablet TAKE 1 TABLET(1 MG) BY MOUTH DAILY 90 tablet 1 04/15/2025 Active methotrexate 2.5 mg tabletIndicatio ns:Rheumatoid Arthritis TAKE 6 TABLETS BY MOUTH EVERY WEEK 72 tablet 04/15/2025 Active Active Problems Problem Noted Date Diagnosed [...] try to get in with derm and/or practice assistant if urticaria persists. I do not think [...] 04/13/2019 Assessment & Plan (05/15/2019 5:21 PM SEMI DRIVER): Improved with time/valtrex. Possible shingles. I do [...] 03/21 Assessment & Plan (07/19/2024 12:46 PM SEMI DRIVER): BMD 12/27/19: lumbar spine -1.6, hip -1.2 [...] 03/20 Assessment & Plan (07/21/2023 1:33 PM SEMI DRIVER): BMD 12/27/19: lumbar spine -1.6, hip -1.2 FRAX 6.9, 0.1 BMD 03/18: lumbar spine -2.2, L femoral neck -1.7, R femoral neck -0.7. FRAX 12% and 1.7% Some worse this year but still low FRAX score. Continue calcium and vit D Assessment & Plan (05/27/2022 1:18 PM SEMI DRIVER): BMD 12/27/19: lumbar spine -1.6, hip -1.2 [...] 01/15 Assessment & Plan (08/27/2021 1:29 PM SEMI DRIVER): BMD 12/27/19: lumbar spine -1.6, hip -1.2 [...] yrs Assessment & Plan (05/15/2020 1:36 PM SEMI DRIVER): BMD 12/27/19: lumbar spine -1.6, hip -1.2 [...] able Assessment & Plan (08/16/2019 1:37 PM SEMI DRIVER): Osteopenia -1.8 spine in 07/2017. Will give order to repeat bmd Assessment & Plan (11/10/2018 1:08 PM CDT): Osteopenia -1.8 spine in 2018 Assessment & Plan (08/10/2018 1:26 PM SEMI DRIVER): Osteopenia -1.8 spine in 2018 Assessment & Plan (04/25/2018 5:10 PM CDT): Osteopenia -1.8 spine in 2018 High risk medications (not anticoagulants) long- term use 01/21/2017 Overview (02/18/2020): Neg quantiferon 8/20 Neg cxr 7/20 Neg hepatitis 8/19 Assessment & Plan (05/20/2025 8:00 AM SEMI DRIVER): utd flu and pneumovax positive RF, CCP Injection site reaction to enbrel. Took humira for years and did well. Changed to simponi aria due to medicare On simponi aria, mtx Neg quantiferon 8/20 Neg cxr 7/20 Neg hepatitis 8/19 Assessment & Plan (02/21/2025 9:06 AM CDT): Quant gold neg 11/18 cxr neg 7/20 Neg hepatitis 8/19 May do labs g7iefvzs. Vaccine recommendations: yearly flu shot - not yet done She had cteonzijh51 in 2012, got a booster in 2019. Had a dose of zcldinb44. utd tdap. utd shingrix. New COVID vaccine 04/18. Hasn't had RSV vaccine yet. utd colonoscopy in 10/15. utd mammograms. Assessment & Plan (10/16/2024 3:46 PM CDT): Quant gold neg 1118 cxr neg 7/20 Neg hepatitis 8/19 May do labs f4hrvklf. Vaccine recommendations: yearly flu shot - not yet done She had iaqzeexkt78 in 2012, got a booster in 2020. Had a dose of wwgerrj33. utd tdap. utd shingrix. New COVID vaccine 04/18. Hasn't had RSV vaccine yet. utd colonoscopy in 10/15. utd mammograms. Assessment & Plan (07/19/2024 12:45 PM SEMI DRIVER): Quant gold neg 11/18 cxr neg 7/20 Neg hepatitis 8/19 May do labs o8voyxlz. Vaccine recommendations: yearly flu shot - not yet done She had cyggqbndl76 in 2012, got a booster in 2020. Had a dose of neshlbl30. utd tdap. utd shingrix. New COVID vaccine 04/18. Hasn't had RSV vaccine yet. utd colonoscopy in 10/15. utd mammograms. Assessment & Plan (04/19/2024 11:02 AM CDT): Quant gold neg 1118 cxr neg 7/20 Neg hepatitis 8/19 May do labs k2ledbjc. Vaccine recommendations: yearly flu shot - planned for 05/20. She had in 2012, got a booster in 2019. Had a dose of ppdsxcu27. utd tdap. utd shingrix. New COVID vaccine 04/18. Hasn't had RSV vaccine yet. utd colonoscopy in 10/15. utd mammograms. Assessment & Plan (01/19/2024 9:53 AM CDT): Quant gold neg 11/18 cxr neg 7/20 Neg hepatitis 819 May do labs s3ykruzm. Vaccine recommendations: yearly flu shot utd. She had mekgblddx20 in 2012, got a booster in 2019. Had a dose of wfuyhyy60. utd tdap. utd shingrix. New COVID vaccine 04/18. Hasn't had RSV vaccine yet. utd colonoscopy in 10/15. utd mammograms. Assessment & Plan (10/20/2023 10:24 AM CDT): Quant gold neg 11/18 cxr neg 7/20 Neg hepatitis 8/19 May do labs w2tquabf. Vaccine recommendations: yearly flu shot utd. She had cdkwmbufu63 in 2012, got a booster in 2019. Had a dose of maomwmr73. utd tdap. utd shingrix. New COVID vaccine 04/18. Hasn't had RSV vaccine yet. utd colonoscopy in 10/15. utd mammograms. Assessment & Plan (07/21/2023 10:29 AM SEMI DRIVER): Quant gold neg 11/18 cxr neg 7/20 Neg hepatitis 8/19 May do labs i0oclfqi. Vaccine recommendations: yearly flu shot utd. She had iskzfwqwi53 in 2012, got a booster in 2020. Had a dose of mwmrwef02. utd tdap. utd shingrix. New COVID vaccine 04/18. Discussed RSV vaccine and she is eligible, will need script for pharmacy. utd colonoscopy in 10/15. utd mammograms. Assessment & Plan (04/19/2023 11:08 AM CDT): Quant gold neg 11/18 cxr neg 7/20 Neg hepatitis 8/19 May do labs o8abpzir. Vaccine recommendations: yearly flu shot utd. She had yeqoyqbcm59 in 2013, got a booster in 2020. Had a dose of . utd tdap. utd shingrix. New COVID vaccine 04/18 utd colonoscopy in 10/15. utd mammograms. Assessment & Plan (01/20/2023 10:32 AM CDT): Quant gold neg 11/18 cxr neg 7/20 Neg hepatitis 819 May do labs z3xakflo. Vaccine recommendations: yearly flu shot utd. She had vxbbelqif47 in 2013, got a booster in 2020. Had a dose of udpzdmv53. utd tdap. utd shingrix. Received COVID vaccines and 3rd dose. utd colonoscopy in 10/15. utd mammograms. Assessment & Plan (09/24/2022 12:18 PM CDT): Quant gold neg 11/18 cxr neg 7/20 Neg hepatitis 8/19 May do labs r3rjzcvk. Vaccine recommendations: yearly flu shot utd. She had in 2013, got a booster in 2020. Had a dose of ydxonte75. utd tdap. utd shingrix. Received COVID vaccines and 3rd dose. utd colonoscopy in 10/15. utd mammograms. Assessment & Plan (05/27/2022 1:14 PM SEMI DRIVER): Quant gold neg 11/18 cxr neg 7/20 Neg hepatitis 8/19 May do labs s5lztyrt. Vaccine recommendations: yearly flu shot utd. She had czexnphhj75 in 2013, got a booster in 2020. Had a dose of iudagqh93. utd tdap. utd shingrix. Received COVID vaccines and 3rd dose. utd colonoscopy in 10/15. utd mammograms. Assessment & Plan (02/25/2022 12:58 PM CDT): Quant gold neg 11/18 cxr neg 7/20 Neg hepatitis 8 May do labs g0nysvmt. Vaccine recommendations: yearly flu shot utd. She had nlwnedlpn20 in 2013, got a booster in 2019. Had a dose of awjotcc47. utd tdap. utd shingrix. Received COVID vaccines and 3rd dose. utd colonoscopy in 10/15. utd mammograms. Assessment & Plan (11/26/2021 1:11 PM CDT): Quant gold neg 11/18 cxr neg 7/20 Neg hepatitis 8 May do labs q3dideyy. Vaccine recommendations: yearly flu shot utd. She had bpufqozfo10 in 2013, got a booster in 2020. Had a dose of xruxjlq11. utd tdap. utd shingrix. Received COVID vaccines and 3rd dose. utd colonoscopy in 10/15. utd mammograms. Assessment & Plan (08/27/2021 1:29 PM SEMI DRIVER): Quant gold neg 11/18 cxr neg 7/20 Neg hepatitis 819 October do labs d6fyrhmp. Vaccine recommendations: yearly flu shot utd. She had in 2013, got a booster in 2020. Had a dose of xluhiqt06. utd tdap. utd shingrix. Received COVID vaccines and 3rd dose. utd colonoscopy in 10/15. utd mammograms. Assessment & Plan (05/28/2021 1:50 PM SEMI DRIVER): Quant gold neg 11/18 cxr neg 7/20 Neg hepatitis 819 October do labs y3hvjcla. Vaccine recommendations: yearly flu shot utd. She had lakqfniwb99 in 2013, got a booster in 2020. Had a dose of . utd tdap. utd shingrix. Received COVID vaccines and 3rd dose. utd colonoscopy in 10/15. utd mammograms. Assessment & Plan (02/19/2021 1:09 PM CDT): Quant gold neg 11/18 cxr neg 7/20 Neg hepatitis 8/19 May do labs l4vyeplx. Vaccine recommendations: yearly flu shot. She had in 2013, got a booster in 2020. Had a dose of oakioyl81. utd tdap. utd shingrix. Received COVID vaccine. May get booster. utd colonoscopy in 10/15. utd mammograms. Assessment & Plan (11/20/2020 1:39 PM CDT): Quant gold neg 11/18 cxr neg 7/20 Neg hepatitis 8/19 May do labs w6qifehn. Vaccine recommendations: yearly flu shot. She had lhfgykijz77 in 2013, got a booster in 2020. Had a dose of xexvmcs60. utd tdap. utd shingrix. Received COVID vaccine. utd colonoscopy in 10/15. utd mammograms. Assessment & Plan (08/21/2020 6:52 PM SEMI DRIVER): Quant gold neg 11/18 cxr neg 7/20 Neg hepatitis 8/19 May do labs z1vmigsb. Vaccine recommendations: yearly flu shot. She had lgcqsilic72 in 2013, got a booster in 2020. Had a dose of . utd tdap. utd shingrix. Receiving COVID vaccine. Assessment & Plan (05/15/2020 1:32 PM SEMI DRIVER): Quant gold neg 11/18 cxr neg 7/20 Neg hepatitis 8/19 May do labs r3mjtboi. Vaccine recommendations: yearly flu shot. She had afhvzhimd76 in 2013, got a booster in 2020. Had a dose of hdonvgx83. utd tdap. utd shingrix. Assessment & Plan (02/15/2020 2:36 PM CDT): Quant gold neg 11/18 cxr neg 7/20 Neg hepatitis 8/19 May do labs m9zavgng. Vaccine recommendations: yearly flu shot. She had tzsoekjdj56 in 2013, got a booster in 2020. Had a dose of zsimdkl17. utd tdap. utd shingrix. Assessment & Plan (11/15/2019 1:24 PM CDT): Quant gold neg 11/18 cxr neg 8/18. Has order to repeat Neg hepatitis 02/12 May do labs x7svgtog. Vaccine recommendations: utd flu shot. She had in 2013. Had a dose of aekdchq44. May have booster for hohdrblze01. utd tdap. utd shingrix. Assessment & Plan (08/16/2019 1:34 PM SEMI DRIVER): Quant gold neg 11/18 cxr neg 8/18 Neg hepatitis 8 May do labs r2kvnfpz. Vaccine recommendations: utd flu shot. She had jpfkftgky12 in 2013. Had a dose of cohwewh11. May have booster for ositwkomf94. utd tdap. utd shingrix. Assessment & Plan (05/15/2019 1:05 PM SEMI DRIVER): Quant gold neg 11/18 cxr neg 8/18 Neg hepatitis 8/19 Standing order is good from 10/13 through 04/14. May do labs m7hcyqgn. Vaccine recommendations: utd flu shot. She had vxjbjxzuk65 in 2013. Had a dose of dhqjych30. May have booster for vexsiwegf04. utd tdap. May have Shingrix. Assessment & Plan (04/13/2019 8:38 AM CDT): Quant gold neg 11/18 cxr neg 8/18 Neg hepatitis 8/19 Standing order is good from 10/13 through 04/14. May do labs q4akrral. Vaccine recommendations: utd flu shot. She had pbkykttdz41 in 2012. Had a dose of . May have booster for napmgyxlh59. utd tdap. May have Shingrix. Assessment & Plan (02/08/2019 2:10 PM CDT): Quant gold neg 11/18 cxr neg 8/18 Standing order is good from 10/13 through 04/14. May do labs v3yjdeuo. Vaccine recommendations: utd flu shot. She had in 2012. Had a dose of wqcnofm69. May have booster for wshuzrrvw92. utd tdap. May have Shingrix. Assessment & Plan (11/10/2018 4:32 PM CDT): Quant gold neg 05/14 cxr neg 8/18 Standing order is good from 10/13 through 04/14. May do labs i7tbnkcc. Vaccine recommendations: utd flu shot. She had vmddumski77 in 2012. Should go for Imnyber76 now. At least 8 weeks later get booster of cdglnjozp57 (since immune compromised). Also inquire about availability of Shingrix and may have this. Check with pcp about Tdap status. Hold mtx for 2 weeks following dose of vaccine. Assessment & Plan (08/10/2018 1:48 PM SEMI DRIVER): Quant gold neg 05/14 cxr neg 818 Standing order is good from 04/13 through 10/13. May do labs x4vuouuq. Reviewed vaccine recommendations with pt. utd flu shot. She had hnvguuwut47 in 2012. Should go for Xoqgyzc83 now. At least 8 weeks later get booster of jhpezbtjw82 (since immune compromised). Also inquire about availability of Shingrix and may have this. Check with pcp about Tdap status. Hold mtx for 2 weeks following dose of vaccine. Assessment & Plan (04/24/2018 4:47 PM CDT): Quant gold neg 06/12. cxr neg 818 Standing order is good from 04/13 through 10/13 Assessment & Plan (01/23/2018 10:45 AM CDT): Quant gold neg 12/17. cxr neg 8/17 Standing order is good from 10/12- 04/13 Assessment & Plan (10/21/2017 11:14 AM CDT): Quant gold neg 12/17. cxr neg 8/17 Standing order is good from 10/12- 04/13 Assessment & Plan (07/21/2017 11:22 AM SEMI DRIVER): Quant gold neg 12/17. Assessment & Plan (04/21/2017 9:31 PM CDT): neg quantiferon 05/12 neg cxr 02/10 utd flu and pneumovax [...] On simponi aria, mtx Assessment & Plan (05/21/2025 9:13 AM SEMI DRIVER): Low cdai. Doing well on present meds. We changed from Humira to Simponi Aria due to Medicare several years ago and continues to do well overall. Plan to continue with Simponi Aria r1qqwuj. Continue mtx 15mg weekly. Continue routine labs. F/u [address] Carrasco today. Flu vaccine is utd. Assessment & Plan (02/21/2025 11:21 AM CDT): cdai = 2, remission Changed from Humira to Simponi Aria due to Medicare several years ago and continues to do well overall. Plan to continue with Simponi Aria h6gtobl. Continue mtx 15mg weekly. Continue routine labs. F/u 3 months. Assessment & Plan (10/16/2024 3:46 PM CDT): cdai = 1, remission Changed from Humira to Simponi Aria due to Medicare several years ago and continues to do well overall. Plan to continue with Simponi Aria m5aeuxs. Continue mtx 15mg weekly. Continue routine labs. F/u 3 months. Assessment & Plan (07/19/2024 12:45 PM SEMI DRIVER): cdai = 3, remission Changed from Humira to Simponi Aria due to Medicare several years ago and continues to do well overall. Plan to continue with Simponi Aria g8ekfbz. Continue mtx 15mg weekly. Continue routine labs. F/u 3 months. Assessment & Plan (04/19/2024 11:02 AM CDT): cdai = 0, remission Changed from Humira to Simponi Aria due to Medicare several years ago and continues to do well overall. Plan to continue with Simponi Aria k1rejpz. Continue mtx 15mg weekly. Continue routine labs. F/u 3 months. Assessment & Plan (01/19/2024 3:03 PM CDT): cdai = 0, remission Changed from Humira to Simponi Aria due to Medicare several years ago and continues to do well overall. Plan to continue with Simponi Aria l6tmqqg. Continue mtx 15mg weekly. Continue routine labs. F/u 3 months. Assessment & Plan (10/20/2023 10:24 AM CDT): cdai = 1, remission Changed from Humira to Simponi Aria due to Medicare several years ago and continues to do well overall. Plan to continue with Simponi Aria b6szexh. Continue mtx 15mg weekly. Continue routine labs. F/u 3 months. Assessment & Plan (07/21/2023 1:33 PM SEMI DRIVER): cdai = 1, remission Changed from Humira to Simponi Aria due to Medicare several years ago and continues to do well overall. Plan to continue with Simponi Aria e6gauth. Continue mtx 15mg weekly. Continue routine labs. F/u [address] Carrasco. Assessment & Plan (04/19/2023 11:07 AM CDT): cdai = 1, remission Changed from Humira to Simponi Aria due to Medicare and continues to do well overall. Plan to continue with Simponi Aria q1krpmr. Continue mtx 15mg weekly. Continue routine labs. F/u 3 months. Assessment & Plan (01/20/2023 11:20 AM CDT): cdai = 0, remission Changed from Humira to Simponi Aria due to Medicare and continues to do well overall. Plan to continue with Simponi Aria z6hmwym. Continue mtx 15mg weekly. Continue routine labs. F/u [address] Almaraz. Assessment & Plan (09/24/2022 1:59 PM CDT): cdai = 1, remission Changed from Humira to Simponi Aria due to Medicare and continues to do well overall. Plan to continue with Simponi Aria v7dsfmo. Continue mtx 15mg weekly. Continue routine labs. F/u 3 months. Assessment & Plan (05/27/2022 1:14 PM SEMI DRIVER): cdai = , low activity/remission Changed from Humira to Simponi Aria due to Medicare and continues to do well overall. Plan to continue with Simponi Aria m9oezey. Continue mtx 15mg weekly. Continue routine labs. F/u 3 months. Assessment & Plan (02/25/2022 2:50 PM CDT): cdai = 0, low activity/remission Changed from Humira to Simponi Aria due to Medicare and continues to do well overall. Plan to continue with Simponi Aria m7ekxgc. Continue mtx 15mg weekly. Continue routine labs. F/u 3 months. Assessment & Plan (11/26/2021 4:50 PM CDT): cdai = 4, low activity Changed from Humira to Simponi Aria due to Medicare and continues to do well overall. Plan to continue with Simponi Aria i8zlccw. Continue mtx 15mg weekly. Continue routine labs. F/u 3 months. Assessment & Plan (08/27/2021 1:48 PM SEMI DRIVER): cdai = 2, remission Changed from Humira to Simponi Aria due to Medicare and continues to do well overall. Plan to continue with Simponi Aria s4rdsdg. Continue mtx 15mg weekly. Continue routine labs. F/u 3 months. Assessment & Plan (05/28/2021 1:52 PM SEMI DRIVER): cdai = 3, remission Changed from Humira to Simponi Aria due to Medicare and continues to do well overall. Plan to continue with Simponi Aria u5pofxi. Continue mtx 15mg weekly. Continue routine labs. F/u 3 months. Assessment & Plan (02/19/2021 1:11 PM CDT): cdai = 1, remission Changed from Humira to Simponi Aria due to Medicare and continues to do well overall. Plan to continue with Simponi Aria p2axunm. Continue mtx 15mg weekly. Continue routine labs. F/u 3 months. Assessment & Plan (11/20/2020 1:41 PM CDT): cdai = 0, remission Changed from Humira to Simponi Aria due to Medicare and continues to do well overall. Plan to continue with Simponi Aria b7vxkqi. Continue mtx 15mg weekly. Continue routine labs. F/u 3 months. Assessment & Plan (08/21/2020 6:51 PM SEMI DRIVER): cdai = 0, remission Changed from Humira to Simponi Aria due to Medicare and continues to do well overall. Plan to continue with Simponi Aria f8xucmj. Continue mtx 15mg weekly. Continue routine labs. F/u 3 months. utd flu shot. utd lgydhan93 and shingrix. Had booster of azlpalmuv81 in 08/16. Had covid vaccine. Advised to hold mtx for 1 week following vaccine administration. Assessment & Plan (05/15/2020 1:35 PM SEMI DRIVER): cdai = 2, remission Changed from Humira to Simponi Aria due to Medicare and continues to do well overall. Plan to continue with Simponi Aria d2juacp. Continue mtx 15mg weekly. Continue routine labs via standing order. F/u 3 months. utd flu shot. utd azlyeui76 and shingrix. Had booster of rcwrwinbt26 in 08/16. Assessment & Plan (02/15/2020 2:35 PM CDT): cdai = 3, remission Changed from Humira to Simponi Aria due to Medicare. Plan to continue with Simponi Aria j4amwmp. Continue mtx. utd labs. She is asking if she can get her labs done when here for infusions, i3wwfwz. I put in a standing order for this. F/u 3 months. utd flu shot. utd and shingrix. Had booster of bhrhbvqsy82 in 08/16. Assessment & Plan (11/15/2019 1:24 PM CDT): cdai = 2, remission Changed from Humira to Simponi Aria due to Medicare. Plan to continue with Simponi Aria w6diiqg. Continue mtx. utd labs. Reviewed recent labs which were normal. Continue every 3 months. F/u 3 months. utd flu shot. To get booster of hohehhily90. utd dhnwecl56 and shingrix. Assessment & Plan (08/16/2019 1:38 PM SEMI DRIVER): cdai = 0 Changed from Humira to Simponi Aria due to Medicare. Plan to continue with Simponi Aria y2pvmvg. Continue mtx. utd labs. Will give order to do labs again in 3 months. F/u 3 months. utd flu shot. To get booster of cfpknratj71. utd ygykdrv73 and shingrix. Assessment & Plan (05/15/2019 1:19 PM SEMI DRIVER): cdai = 3 Recently changed from Humira to Simponi Aria due to Medicare. Plan to continue with Simponi Aria c1ejfba. Continue mtx. utd labs. F/u 3 months. utd flu shot. To get booster of erlqjbkde34 and shingrix. Assessment & Plan (04/13/2019 4:36 PM CDT): Recently changed from Humira to Simponi Aria due to Medicare. Has a rash that started after simponi but I do not feel it is a reaction. See below. Will still plan to continue with Simponi Aria x4mwuab. Continue mtx. utd labs. Keep next visit for 1 month. Assessment & Plan (02/08/2019 2:08 PM CDT): cdai = 3 Doing very well on mtx and humira at this time. Due to starting Medicare soon will plan to change to Simponi aria when out of her current supply of Humira. utd flu shot. utd labs. May do standing order g9jzljpa since stable. f/u 3 months. Assessment & Plan (11/10/2018 4:31 PM CDT): cdai = 3 Doing very well on mtx and humira at this time. Will cont present meds. utd flu shot. utd labs. May do standing order i7irhncf since stable. f/u 3 months. She will be going on Medicare soon when her retires and we may try changing to simponi aria at that time for better coverage. Assessment & Plan (08/10/2018 1:40 PM SEMI DRIVER): cdai = 5 Doing very well on mtx and humira at this time. Will cont present meds. utd flu shot. utd labs. May do standing order f3qhhlbq since stable. f/u 3 months. Assessment & [...] months Assessment & Plan (07/21/2017 11:21 AM SEMI DRIVER): cdai 3. Doing very well on mtx [...] Encounters Date Type Department Care Team Description 05/21/2025 Results Follow-Up [facility] [address] [place] [address] Allen Carrasco MD CBC with auto differential, Comprehensive metabolic panel, CRP (acute phase), Erythrocyte sedimentation rate 05/20/2025 11:15 AM SEMI DRIVER Office Visit [facility] [address] [place] [address] Chelsea Charles PA Seropositive rheumatoid arthritis of multiple sites (HCC) (Primary Dx); High risk medications (not anticoagulants) long-term use 03/25/2025 9:49 AM CDT - 03/25/2025 11:59 PM CDT Hospital Encounter [facility] ([facility]) [address] [place] [id number] Encounter for screening mammogram for malignant neoplasm of breast Discharge Disposition: Discharge to home or self care from Last 3 Months Immunizations Immunization Administration [...] Medical History Date Comments Hx Other Medical 2006 lt wrist trauma /ligamental tear Gastric ulcer [...] on file Legal Sex Female 7:17 AM SEMI DRIVER Gender Identity Female 02/22/2021 1:14 PM CDT Sexual Orientation Not on file Obstetrics History Para Term AB IAB SAB Ectopic Multiple Livin g Live Births 2 2 Date Outcome GA Total Labor Labor/2nd/3rd Weight Sex Type Anes PTL Irma A1 A5 Name Clin Last Filed Vital Signs Vital Sign Reading Time Taken Comments Blood Pressure 126/78 05/20/2025 11:27 AM SEMI DRIVER Pulse 80 05/20/2025 11:27 AM SEMI DRIVER Temperature 36.6 C (97.8 F) 08/27/2021 1:22 PM SEMI DRIVER Respiratory Rate - - Oxygen Saturation 95% 05/20/2025 11:27 AM SEMI DRIVER Inhaled Oxygen Concentration - - Weight 94.8 kg (209 lb) 05/20/2025 11:27 AM SEMI DRIVER Height 165.1 cm (5' 5) 05/20/2025 11:27 AM SEMI DRIVER Body Mass Index 34.78 05/20/2025 11:27 AM SEMI DRIVER Plan of Treatment Health Maintenance Due Date Last Done Comments Colon Cancer Screening-Colonoscopy 1955 Depression Screening 1955 Fall Risk Assessment 1955 Osteoporosis Screening-Bone Density Scan 1955 Hepatitis B Screening 1971 Well Visit 65+ 2018 Covid-19 Vaccine (2 - Pfizer risk series) 05/06/2022 04/15/2022 Influenza Vaccine (#1) 2025 2, 03/11/2020, 03/03/2020, Additional history exists Breast Cancer Screening-Mammogram 03/25/2026 03/25/2025, 03/22/2024, 03/15/2023, Additional history exists DTaP/Tdap/Td Vaccine (2 - Td or Tdap) 06/29/2026 06/29/2016 Hepatitis C Screening Completed 02/16/2019 Zoster Vaccine Completed 08/03/2019, 04/27, 04/27/2012 Pneumococcal vaccine 65+ Completed 020, 08/17/2018, 08/29/2012, Additional history exists Procedures Procedure Name Priority Date/Time Associated Diagnosis Comments ERYTHROCYTE SEDIMENTATION RATE Routine 05/20/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 Seropositive rheumatoid arthritis of multiple sites (HCC) High risk medications (not anticoagulants) long-term use CRP (ACUTE PHASE) Routine 05/20/2025 1:0 0 PM SEMI DRIVER Seropositive rheumatoid arthritis of multiple sites (HCC) High risk medications (not anticoagulants) long-term use COMPREHENSIVE METABOLIC PANEL Routine 05/20/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 Seropositive rheumatoid arthritis of multiple sites (HCC) High risk medications (not anticoagulants) long-term use CBC WITH AUTO DIFFERENTIAL Routine 05/20/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 Seropositive rheumatoid arthritis of multiple sites (HCC) High risk medications (not anticoagulants) long-term use SCREENING MAMMOGRAM BILATERAL W IVAN Schedule Routine, Read Routine (OP Routine) 03/25/2025 10:24 AM CDT Encounter for screening mammogram for malignant neoplasm of breast HEPATITIS PANEL, ACUTE Routine 02/16/2019 10:01 AM CDT Seropositive rheumatoid arthritis of multiple sites (HCC) Encounter for long-term (current) use of high-risk medication Fatigue, unspecified type from Last 3 Months or Most Recently Relevant to Health Maintenance Results * CBC with auto differential (05/20/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) [facility] WBC 7.3 3.8 - 10.8 Thousand/u L [facility] RBC, POC 4.60 3.80 - 5.10 Million/uL [facility] Hgb 14.4 11.7 - 15.5 g/dL [facility] Hct 45.2 35.9 - 46.0 % [facility] MCV 98.3 81.4 - 101.7 fL [facility] MCH 31.3 27.0 - 33.0 pg [facility] MCHC 31.9 31.6 - 35.4 g/dL [facility] Comment: For adults, a slight decrease in the calculated MCHC value (in the range of 30 to 32 g/dL) is most likely not clinically significant; however, it should be interpreted with caution in correlation with other red cell parameters and the patient's clinical condition. Rdw 13.0 11.0 - 15.0 % [facility] Platelets 192 140 - 400 Thousand/u L [facility] MPV 11.1 7.5 - 12.5 fL [facility] Neutrophils, abs 4,460 1,500 - 7,800 cells/uL [facility] Lymphocytes, abs 2,161 850 - 3,900 cells/uL [facility] Monocyte abs 416 200 - 950 cells/uL [facility] Eosinophils, abs 212 15 - 500 cells/uL [facility] Basophils, abs 51 0 - 200 cells/uL [facility] Neutrophils 61.1 % [facility] Lymphocyte pct 29.6 % [facility] Monocytes 5.7 % [facility] Eosinophils 2.9 % [facility] Basophils 0.7 % [facility] Blood 05/20/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 05/20/2025 1:01 PM SEMI DRIVER us Chelsea YING LAB BLOOD ORDERAB LES Final Result [facility] Mimi Nguy[address]n [address] [place] [phone] * Erythrocyte sedimentation rate (05/20/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) [facility] Erythrocyte sedimentation rate 17 < OR = 30 mm/h [facility] Blood 05/20/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 05/20/2025 1:01 PM SEMI DRIVER Chelsea YING LAB BLOOD ORDERAB LES Final Result Performing Organization Address [facility] Co de Phone Number [facility] [address] [place] [address] * CRP (acute phase) (05/20/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) [facility] C-RP <3.0 <8.0 mg/L [facility] Blood 05/20/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 05/20/2025 1:01 PM SEMI DRIVER Chelsea YING LAB BLOOD ORDERAB LES Final Result Performing Organization Address [facility] Co de Phone Number [facility] [address] [place] [address] * (ABNORMAL) Comprehensive metabolic panel (05/20/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) [facility] Glucose 93 65 - 99 mg/dL [facility] Comment: Fasting reference interval BUN 13 7 - 25 mg/dL [facility] Creatinine 0.70 0.60 - 1.00 mg/dL [facility] eGFR 92 > OR = 60 mL/min/1.7 3m2 [facility] BUN/creat ratio SEE NOTE: 6 - 22 (calc) [facility] Comment: Not Reported: BUN and Creatinine are within reference range. Sodium 141 135 - 146 mmol/L [facility] Potassium, pl 4.3 3.5 - 5.3 mmol/L [facility] Chloride 104 98 - 110 mmol/L [facility] CO2 29 20 - 32 mmol/L [facility] Calcium 9.4 8.6 - 10.4 mg/dL [facility] Protein, sr 7.0 6.1 - 8.1 g/dL [facility] Albumin 4.2 3.6 - 5.1 g/dL [facility] GLOBULIN 2.8 1.9 - 3.7 g/dL (calc) [facility] Alb/glob ratio 1.5 1.0 - 2.5 (calc) [facility] Bilirubin, total 1.4(H) 0.2 - 1.2 mg/dL [facility] Alk phos 79 37 - 153 U/L [facility] AST 20 10 - 35 U/L [facility] ALT (SGPT) 16 6 - 29 U/L [facility] Blood 05/20/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 05/20/2025 1:01 PM SEMI DRIVER us Chelsea YING LAB BLOOD ORDERAB LES Final Result MIMI [facility]guy[facility] [address] [place] [address] * Screening Mammogram Bilateral W Ivan (03/25/2025 10:24 AM CDT) Anatomical Region Laterality Modality Breast Bilateral Mammography Impressions 03/26/2025 1:38 PM CDT Bilateral No evidence of malignancy in either breast. OVERALL BI-RADS FINAL ASSESSMENT: 1 - Negative RECOMMENDATION: Recommend bilateral annual screening mammography. Narrative 03/26/2025 1:38 PM CDT EXAMINATION: Screening Mammogram Bilateral W Ivan: 03/25/2025 COMPARISON: Relevant prior studies available at the time of interpretation were reviewed, including the most recent mammogram on: 03/22/2024. TECHNIQUE: Mammography was performed with 2D and 3D digital breast tomosynthesis (DBT) images. CAD was utilized. BREAST PARENCHYMAL COMPOSITION: There are scattered areas of fibroglandular density. FINDINGS: Bilateral There is no suspicious mass, calcification, or architectural distortion in either breast. us Jennifer Vo NP IMG MAMMO PROCEDURES Fi nal Result * [...] with a HCV Nucleic Acid Amplification test ([id number]). Blood specimen (specimen) 02/16/2019 10:01 AM CDT 02/16/2019 Narrative [facility] - 02/17/2019 6:08 AM CDT Performed at: [facility] [id number] Warrant Clerk: Derek Ryan PhD, Phone: [phone] us Ange YING LAB MICROBIOLOGY - GENER AL ORDERABLES Final Result Performing Organization Address City/State/[facility] Co de Phone Number 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
--- OUTSIDE RECORDS SUMMARY | 2025-05-27 16:45 | XMS_ITS | Clinical Summary ---
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 Gender Identity Not on file Sexual Orientation [...] series) 2028 Medical Devices Implanted Type Area Lead Supply Worker Device Identifier Shelf Expiration Date Model / Serial / Lot Log 83681 - Cement - 1 - Cement [place] G-Hv 40g [id number] Implanted:Qty: 1 on 07/30/2010 at [facility] Cement Right: Knee [employer] 12/26/2011 [id number] / / [id number] Log [id number] - Cement - 1 - Cement [place] G-Hv 40g [id number] Implanted:Qty: 1 on 04/05/2011 at [facility] Cement Left: Knee [employer] 08/24/2012 [id number] / / [id number] Description:liquid ref [id number] Exp 2012-12 Log 18982 - Biomet Vanguard Complete Knee System - 1 - Comp Fem Vngrd Cr Intrlk Rt 65mm [id number] Implanted:Qty: 1 on 07/30/2010 at [facility] Knee Right: Knee [employer] 04/27/2020 [id number] / / [id number] Log 10268 - [employer] Vanguard Complete Knee System - 1 - Plate Tib Cocr Finned 75mm [id number] Implanted:Qty: 1 on 07/30/2010 at [facility] Knee Right: Knee [employer] 03/27/2020 [id number] / / [id number] Bearing Tib Vngrd Epoly Cr [id number] Implanted:Qty: 1 on 07/30/2010 at [facility] Knee Right: Knee [employer] 04/27/2015 [id number] / / [id number] Description:Epoly bearing is not part of total knee cap pricing,will be charged separately. Log [id number] - Biomet Vanguard Complete Knee System - 1 - Comp Fem Vngrd Cr Intrlk Lt 65mm [id number] Implanted:Qty: 1 on 04/05/2011 at [facility] Knee Left: Knee [employer] 02/24/2021 [id number] / / [id number] Log [id number] - Bi[employer] Vanguard Complete Knee System - 1 - Stem Comp Primary Finned [id number] Implanted:Qty: 1 on 04/05/2011 at [facility] Knee Left: Knee [employer] 07/27/2020 [id number] / / [id number] Description:use revision par t due to tibial defect.and is not part of total knee cap pricing.will be charged separately. Log [id number] - Bi[employer] Vanguard Complete Knee System - 1 - Tray Tib Int[address] Ave 71mm [id number] Implanted:Qty: 1 on 04/05/2011 at [facility] Knee Left: Knee [employer] 01/24/2021 [id number] / / [id number] Description:used revision pa rt due to tibial defect,and is not part of total knee cap pricing,will be charged separately. E-Poly Implanted:Qty: 1 on 04/05/2011 at [facility] Left: Knee [employer] 03/26/2016 [id number] / / [id number] Description:Epoly bearing is not part of total knee cap pricing,will be charged separately. Insurance [facility] [employer] PPO [phone] Advance Directives For more information, please contact: [phone] * Full Code (Latest Code Status on [...] 11:26 AM 12/17/2010 12:43 PM Care Teams Leather Craftsman Relationship Specialty Start Date End Date Mimi Verma MD [address] [address] PCP - General 06/13/15
--- OUTSIDE RECORDS SUMMARY | 2025-05-27 16:45 | XMS_ITS | Encounter Summary ---
Author Organization [facility] Address [address] [place] [address] Care Team Providers Care Marble Rubber Name Role Phone Mimi Verma MD Primary Care Provider [phone]- [phone] Encounter Details Date Type Department Care Team (Late st Contact Info) Description 08/10/2006 Inpatient Historical [facility] Jay Glover MD [address] [place] [address] Ayo Steele MD [address] [place] [address] Other Wrist Sprain and Strain (Primary Dx) Social History Tobacco Use Types Packs/Day Years Used Date Smoking Tobacco: Never Assessed Comments Unknown Sex and Gender Information Value Date Recorded Sex Assigned at Not on file 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
--- OUTSIDE RECORDS SUMMARY | 2025-05-27 16:46 | XMS_ITS | Clinical Summary ---
Author Organization [facility] [address] Address [address] [place] [address] Phone Care Team Providers Care Product Safety Tester Name Role Phone Allen Carrasco MD Unavailable [phone] Jennifer Vo TAILOR'S AIDE Primary Care Provider Allergies Active Allergy Reactions Criticality Noted Date Comments Diphenhydramine Hcl Hives High 10/20/2018 Reaction: hives, , 10/20/18 pt denies allergy to diphenhydramine. Sulfa (Sulfonamide Antibiotics) Hives High Reaction: hives, , Sulfanilamide Medications multivit-minera ls-ferrous fum (MULTI VITAMIN) 9 mg iron/15 mL liquid take 1 by Oral route every day 0 0 03/19/2013 Active omega 3-ire-lul-fish oil (FISH OIL) 100-160-1,000 mg capsule take [...] minutes at weeks 0 and 4, then z5gyyps 02/08/2019 Active hydrOXYzine (ATARAX) 50 mg tablet [...] try to get in with derm and/or mechanical press operator if urticaria persists. I do not think [...] 04/13/2019 Assessment & Plan (05/15/2019 5:21 PM RELATIONSHIP MANAGEMENT LEAD): Improved with time/valtrex. Possible shingles. I do [...] 03/21 Assessment & Plan (07/19/2024 12:46 PM RELATIONSHIP MANAGEMENT LEAD): BMD 12/27/19: lumbar spine -1.6, hip -1.2 [...] 03/20 Assessment & Plan (07/21/2023 1:33 PM RELATIONSHIP MANAGEMENT LEAD): BMD 12/27/19: lumbar spine -1.6, hip -1.2 FRAX 6.9, 0.1 BMD 03/18: lumbar spine -2.2, L femoral neck -1.7, R femoral neck -0.7. FRAX 12% and 1.7% Some worse this year but still low FRAX score. Continue calcium and vit D Assessment & Plan (05/27/2022 1:18 PM RELATIONSHIP MANAGEMENT LEAD): BMD 12/27/19: lumbar spine -1.6, hip -1.2 [...] 01/15 Assessment & Plan (08/27/2021 1:29 PM RELATIONSHIP MANAGEMENT LEAD): BMD 12/27/19: lumbar spine -1.6, hip -1.2 [...] yrs Assessment & Plan (05/15/2020 1:36 PM RELATIONSHIP MANAGEMENT LEAD): BMD 12/27/19: lumbar spine -1.6, hip -1.2 [...] able Assessment & Plan (08/16/2019 1:37 PM RELATIONSHIP MANAGEMENT LEAD): Osteopenia -1.8 spine in 07/2017. Will give order to repeat bmd Assessment & Plan (11/10/2018 1:08 PM CDT): Osteopenia -1.8 spine in 2018 Assessment & Plan (08/10/2018 1:26 PM RELATIONSHIP MANAGEMENT LEAD): Osteopenia -1.8 spine in 2018 Assessment & Plan (04/25/2018 5:10 PM CDT): Osteopenia -1.8 spine in 2018 High risk medications (not anticoagulants) long- term use 01/21/2017 Overview (02/18/2020): Neg quantiferon 8/20 Neg cxr 7/20 Neg hepatitis 8/19 Assessment & Plan (05/20/2025 8:00 AM RELATIONSHIP MANAGEMENT LEAD): utd flu and pneumovax positive RF, CCP Injection site reaction to enbrel. Took humira for years and did well. Changed to simponi aria due to medicare On simponi aria, mtx Neg quantiferon 8/20 Neg cxr 7/20 Neg hepatitis 8/19 Assessment & Plan (02/21/2025 9:06 AM CDT): Quant gold neg 11/18 cxr neg 7/20 Neg hepatitis 8/19 May do labs g4smtism. Vaccine recommendations: yearly flu shot - not yet done She had ttfohnslk35 in 2012, got a booster in 2019. Had a dose of jlfwdai48. utd tdap. utd shingrix. New COVID vaccine 04/18. Hasn't had RSV vaccine yet. utd colonoscopy in 10/15. utd mammograms. Assessment & Plan (10/16/2024 3:46 PM CDT): Quant gold neg 1118 cxr neg 7/20 Neg hepatitis 8/19 May do labs d4snuhhd. Vaccine recommendations: yearly flu shot - not yet done She had porzejzie06 in 2012, got a booster in 2020. Had a dose of usixabe86. utd tdap. utd shingrix. New COVID vaccine 04/18. Hasn't had RSV vaccine yet. utd colonoscopy in 10/15. utd mammograms. Assessment & Plan (07/19/2024 12:45 PM RELATIONSHIP MANAGEMENT LEAD): Quant gold neg 11/18 cxr neg 7/20 Neg hepatitis 8/19 May do labs g0mnzgfr. Vaccine recommendations: yearly flu shot - not yet done She had rninipopa15 in 2012, got a booster in 2020. Had a dose of ivnmfaq03. utd tdap. utd shingrix. New COVID vaccine 04/18. Hasn't had RSV vaccine yet. utd colonoscopy in 10/15. utd mammograms. Assessment & Plan (04/19/2024 11:02 AM CDT): Quant gold neg 1118 cxr neg 7/20 Neg hepatitis 8/19 May do labs h8eodnps. Vaccine recommendations: yearly flu shot - planned for 05/20. She had vtydijoei21 in 2012, got a booster in 2019. Had a dose of fawxpay73. utd tdap. utd shingrix. New COVID vaccine 04/18. Hasn't had RSV vaccine yet. utd colonoscopy in 10/15. utd mammograms. Assessment & Plan (01/19/2024 9:53 AM CDT): Quant gold neg 11/18 cxr neg 7/20 Neg hepatitis 819 May do labs i0ntwnek. Vaccine recommendations: yearly flu shot utd. She had in 2012, got a booster in 2019. Had a dose of . utd tdap. utd shingrix. New COVID vaccine 04/18. Hasn't had RSV vaccine yet. utd colonoscopy in 10/15. utd mammograms. Assessment & Plan (10/20/2023 10:24 AM CDT): Quant gold neg 11/18 cxr neg 7/20 Neg hepatitis 8/19 May do labs k5olghqq. Vaccine recommendations: yearly flu shot utd. She had isjxlnwhz40 in 2012, got a booster in 2019. Had a dose of xhjcioe02. utd tdap. utd shingrix. New COVID vaccine 04/18. Hasn't had RSV vaccine yet. utd colonoscopy in 10/15. utd mammograms. Assessment & Plan (07/21/2023 10:29 AM RELATIONSHIP MANAGEMENT LEAD): Quant gold neg 11/18 cxr neg 7/20 Neg hepatitis 8/19 May do labs k7nnadra. Vaccine recommendations: yearly flu shot utd. She had sjynyvqbp64 in 2012, got a booster in 2020. Had a dose of vuouixm22. utd tdap. utd shingrix. New COVID vaccine 04/18. Discussed RSV vaccine and she is eligible, will need script for pharmacy. utd colonoscopy in 10/15. utd mammograms. Assessment & Plan (04/19/2023 11:08 AM CDT): Quant gold neg 11/18 cxr neg 7/20 Neg hepatitis 8/19 May do labs z4vsoijl. Vaccine recommendations: yearly flu shot utd. She had ncznhichf15 in 2013, got a booster in 2020. Had a dose of esnkabo86. utd tdap. utd shingrix. New COVID vaccine 04/18 utd colonoscopy in 10/15. utd mammograms. Assessment & Plan (01/20/2023 10:32 AM CDT): Quant gold neg 11/18 cxr neg 7/20 Neg hepatitis 819 May do labs l7tdkhtp. Vaccine recommendations: yearly flu shot utd. She had fypnxenta08 in 2013, got a booster in 2020. Had a dose of fytpmos91. utd tdap. utd shingrix. Received COVID vaccines and 3rd dose. utd colonoscopy in 10/15. utd mammograms. Assessment & Plan (09/24/2022 12:18 PM CDT): Quant gold neg 11/18 cxr neg 7/20 Neg hepatitis 8/19 May do labs n9lujluk. Vaccine recommendations: yearly flu shot utd. She had yprosgart86 in 2013, got a booster in 2020. Had a dose of negtber00. utd tdap. utd shingrix. Received COVID vaccines and 3rd dose. utd colonoscopy in 10/15. utd mammograms. Assessment & Plan (05/27/2022 1:14 PM RELATIONSHIP MANAGEMENT LEAD): Quant gold neg 11/18 cxr neg 7/20 Neg hepatitis 8/19 May do labs d7ymwlek. Vaccine recommendations: yearly flu shot utd. She had eylumhlzf91 in 2013, got a booster in 2020. Had a dose of nnbozly00. utd tdap. utd shingrix. Received COVID vaccines and 3rd dose. utd colonoscopy in 10/15. utd mammograms. Assessment & Plan (02/25/2022 12:58 PM CDT): Quant gold neg 11/18 cxr neg 7/20 Neg hepatitis 8 May do labs v5nkwriy. Vaccine recommendations: yearly flu shot utd. She had hrgkneolf05 in 2013, got a booster in 2019. Had a dose of . utd tdap. utd shingrix. Received COVID vaccines and 3rd dose. utd colonoscopy in 10/15. utd mammograms. Assessment & Plan (11/26/2021 1:11 PM CDT): Quant gold neg 11/18 cxr neg 7/20 Neg hepatitis 8 May do labs e4zwcxds. Vaccine recommendations: yearly flu shot utd. She had izqqrjhyq82 in 2013, got a booster in 2020. Had a dose of . utd tdap. utd shingrix. Received COVID vaccines and 3rd dose. utd colonoscopy in 10/15. utd mammograms. Assessment & Plan (08/27/2021 1:29 PM RELATIONSHIP MANAGEMENT LEAD): Quant gold neg 11/18 cxr neg 7/20 Neg hepatitis 819 October do labs u9lqyqsu. Vaccine recommendations: yearly flu shot utd. She had in 2013, got a booster in 2020. Had a dose of kzsunkk96. utd tdap. utd shingrix. Received COVID vaccines and 3rd dose. utd colonoscopy in 10/15. utd mammograms. Assessment & Plan (05/28/2021 1:50 PM RELATIONSHIP MANAGEMENT LEAD): Quant gold neg 11/18 cxr neg 7/20 Neg hepatitis 819 October do labs h2ptfyar. Vaccine recommendations: yearly flu shot utd. She had jktnoccza86 in 2013, got a booster in 2020. Had a dose of qvzskfa11. utd tdap. utd shingrix. Received COVID vaccines and 3rd dose. utd colonoscopy in 10/15. utd mammograms. Assessment & Plan (02/19/2021 1:09 PM CDT): Quant gold neg 11/18 cxr neg 7/20 Neg hepatitis 8/19 May do labs x2fcjhaw. Vaccine recommendations: yearly flu shot. She had bdaetfown52 in 2013, got a booster in 2020. Had a dose of hbvsuem24. utd tdap. utd shingrix. Received COVID vaccine. May get booster. utd colonoscopy in 10/15. utd mammograms. Assessment & Plan (11/20/2020 1:39 PM CDT): Quant gold neg 11/18 cxr neg 7/20 Neg hepatitis 8/19 May do labs e1piisup. Vaccine recommendations: yearly flu shot. She had edftaycqs66 in 2013, got a booster in 2020. Had a dose of jxwjdya04. utd tdap. utd shingrix. Received COVID vaccine. utd colonoscopy in 10/15. utd mammograms. Assessment & Plan (08/21/2020 6:52 PM RELATIONSHIP MANAGEMENT LEAD): Quant gold neg 11/18 cxr neg 7/20 Neg hepatitis 8/19 May do labs j4evfwel. Vaccine recommendations: yearly flu shot. She had xyiqhgpdp67 in 2013, got a booster in 2020. Had a dose of . utd tdap. utd shingrix. Receiving COVID vaccine. Assessment & Plan (05/15/2020 1:32 PM RELATIONSHIP MANAGEMENT LEAD): Quant gold neg 11/18 cxr neg 7/20 Neg hepatitis 8/19 May do labs f1ebcqmw. Vaccine recommendations: yearly flu shot. She had pubggpepn35 in 2013, got a booster in 2020. Had a dose of bfpyrpi07. utd tdap. utd shingrix. Assessment & Plan (02/15/2020 2:36 PM CDT): Quant gold neg 11/18 cxr neg 7/20 Neg hepatitis 8/19 May do labs u6rrhmuj. Vaccine recommendations: yearly flu shot. She had zlgvytfeq98 in 2013, got a booster in 2020. Had a dose of ltosroj25. utd tdap. utd shingrix. Assessment & Plan (11/15/2019 1:24 PM CDT): Quant gold neg 11/18 cxr neg 8/18. Has order to repeat Neg hepatitis 02/12 May do labs r7wwocqi. Vaccine recommendations: utd flu shot. She had fouxjciqa54 in 2013. Had a dose of rxfcdre16. May have booster for zvsanacuk24. utd tdap. utd shingrix. Assessment & Plan (08/16/2019 1:34 PM RELATIONSHIP MANAGEMENT LEAD): Quant gold neg 11/18 cxr neg 8/18 Neg hepatitis 8 May do labs m8gepbsf. Vaccine recommendations: utd flu shot. She had gulznrstj44 in 2013. Had a dose of ackgujz46. May have booster for wemdrqhks43. utd tdap. utd shingrix. Assessment & Plan (05/15/2019 1:05 PM RELATIONSHIP MANAGEMENT LEAD): Quant gold neg 11/18 cxr neg 8/18 Neg hepatitis 8/19 Standing order is good from 10/13 through 04/14. May do labs u1gmdsrp. Vaccine recommendations: utd flu shot. She had qeyzuiaxm27 in 2013. Had a dose of ffiyalm71. May have booster for pgtihzhox04. utd tdap. May have Shingrix. Assessment & Plan (04/13/2019 8:38 AM CDT): Quant gold neg 11/18 cxr neg 8/18 Neg hepatitis 8/19 Standing order is good from 10/13 through 04/14. May do labs j6obpxmc. Vaccine recommendations: utd flu shot. She had wpbjxehgb21 in 2012. Had a dose of sxbkcpe53. May have booster for rznzphvto26. utd tdap. May have Shingrix. Assessment & Plan (02/08/2019 2:10 PM CDT): Quant gold neg 11/18 cxr neg 8/18 Standing order is good from 10/13 through 04/14. May do labs d8yqkvzk. Vaccine recommendations: utd flu shot. She had fztkrigbl28 in 2012. Had a dose of hbusonk47. May have booster for anuayhsvt68. utd tdap. May have Shingrix. Assessment & Plan (11/10/2018 4:32 PM CDT): Quant gold neg 05/14 cxr neg 8/18 Standing order is good from 10/13 through 04/14. May do labs a5tfztol. Vaccine recommendations: utd flu shot. She had bageefeix32 in 2012. Should go for Zeklueg54 now. At least 8 weeks later get booster of lorsajlzh89 (since immune compromised). Also inquire about availability of Shingrix and may have this. Check with pcp about Tdap status. Hold mtx for 2 weeks following dose of vaccine. Assessment & Plan (08/10/2018 1:48 PM RELATIONSHIP MANAGEMENT LEAD): Quant gold neg 05/14 cxr neg 818 Standing order is good from 04/13 through 10/13. May do labs x1iogido. Reviewed vaccine recommendations with pt. utd flu shot. She had refawpsqf94 in 2012. Should go for Ujenucd50 now. At least 8 weeks later get booster of ivosvmwme40 (since immune compromised). Also inquire about availability [...] 04/13 Assessment & Plan (07/21/2017 11:22 AM RELATIONSHIP MANAGEMENT LEAD): Quant gold neg 12/17. Assessment & Plan [...] mtx Assessment & Plan (05/21/2025 9:13 AM RELATIONSHIP MANAGEMENT LEAD): Low cdai. Doing well on present meds. We changed from Humira to Simponi Aria due to Medicare several years ago and continues to do well overall. Plan to continue with Simponi Aria i0tfkwk. Continue mtx 15mg weekly. Continue routine labs. F/u [address] Carrasco today. Flu vaccine is utd. Assessment & Plan (02/21/2025 11:21 AM CDT): cdai = 2, remission Changed from Humira to Simponi Aria due to Medicare several years ago and continues to do well overall. Plan to continue with Simponi Aria h9kqxfn. Continue mtx 15mg weekly. Continue routine labs. F/u 3 months. Assessment & Plan (10/16/2024 3:46 PM CDT): cdai = 1, remission Changed from Humira to Simponi Aria due to Medicare several years ago and continues to do well overall. Plan to continue with Simponi Aria a7eqgra. Continue mtx 15mg weekly. Continue routine labs. F/u 3 months. Assessment & Plan (07/19/2024 12:45 PM RELATIONSHIP MANAGEMENT LEAD): cdai = 3, remission Changed from Humira to Simponi Aria due to Medicare several years ago and continues to do well overall. Plan to continue with Simponi Aria f1stsvz. Continue mtx 15mg weekly. Continue routine labs. F/u 3 months. Assessment & Plan (04/19/2024 11:02 AM CDT): cdai = 0, remission Changed from Humira to Simponi Aria due to Medicare several years ago and continues to do well overall. Plan to continue with Simponi Aria s0jwpkn. Continue mtx 15mg weekly. Continue routine labs. F/u 3 months. Assessment & Plan (01/19/2024 3:03 PM CDT): cdai = 0, remission Changed from Humira to Simponi Aria due to Medicare several years ago and continues to do well overall. Plan to continue with Simponi Aria p4urvyn. Continue mtx 15mg weekly. Continue routine labs. F/u 3 months. Assessment & Plan (10/20/2023 10:24 AM CDT): cdai = 1, remission Changed from Humira to Simponi Aria due to Medicare several years ago and continues to do well overall. Plan to continue with Simponi Aria m3imcvh. Continue mtx 15mg weekly. Continue routine labs. F/u 3 months. Assessment & Plan (07/21/2023 1:33 PM RELATIONSHIP MANAGEMENT LEAD): cdai = 1, remission Changed from Humira to Simponi Aria due to Medicare several years ago and continues to do well overall. Plan to continue with Simponi Aria s8wrsnb. Continue mtx 15mg weekly. Continue routine labs. F/u [address] Carrasco. Assessment & Plan (04/19/2023 11:07 AM CDT): cdai = 1, remission Changed from Humira to Simponi Aria due to Medicare and continues to do well overall. Plan to continue with Simponi Aria x6vwpxd. Continue mtx 15mg weekly. Continue routine labs. F/u 3 months. Assessment & Plan (01/20/2023 11:20 AM CDT): cdai = 0, remission Changed from Humira to Simponi Aria due to Medicare and continues to do well overall. Plan to continue with Simponi Aria p4ufhlz. Continue mtx 15mg weekly. Continue routine labs. F/u [address] Almaraz. Assessment & Plan (09/24/2022 1:59 PM CDT): cdai = 1, remission Changed from Humira to Simponi Aria due to Medicare and continues to do well overall. Plan to continue with Simponi Aria p8sompw. Continue mtx 15mg weekly. Continue routine labs. F/u 3 months. Assessment & Plan (05/27/2022 1:14 PM RELATIONSHIP MANAGEMENT LEAD): cdai = , low activity/remission Changed from Humira to Simponi Aria due to Medicare and continues to do well overall. Plan to continue with Simponi Aria s0iihhb. Continue mtx 15mg weekly. Continue routine labs. F/u 3 months. Assessment & Plan (02/25/2022 2:50 PM CDT): cdai = 0, low activity/remission Changed from Humira to Simponi Aria due to Medicare and continues to do well overall. Plan to continue with Simponi Aria f5szcbl. Continue mtx 15mg weekly. Continue routine labs. F/u 3 months. Assessment & Plan (11/26/2021 4:50 PM CDT): cdai = 4, low activity Changed from Humira to Simponi Aria due to Medicare and continues to do well overall. Plan to continue with Simponi Aria l4tsftg. Continue mtx 15mg weekly. Continue routine labs. F/u 3 months. Assessment & Plan (08/27/2021 1:48 PM RELATIONSHIP MANAGEMENT LEAD): cdai = 2, remission Changed from Humira to Simponi Aria due to Medicare and continues to do well overall. Plan to continue with Simponi Aria d8cpsjr. Continue mtx 15mg weekly. Continue routine labs. F/u 3 months. Assessment & Plan (05/28/2021 1:52 PM RELATIONSHIP MANAGEMENT LEAD): cdai = 3, remission Changed from Humira to Simponi Aria due to Medicare and continues to do well overall. Plan to continue with Simponi Aria l8duewt. Continue mtx 15mg weekly. Continue routine labs. F/u 3 months. Assessment & Plan (02/19/2021 1:11 PM CDT): cdai = 1, remission Changed from Humira to Simponi Aria due to Medicare and continues to do well overall. Plan to continue with Simponi Aria u0qqamh. Continue mtx 15mg weekly. Continue routine labs. F/u 3 months. Assessment & Plan (11/20/2020 1:41 PM CDT): cdai = 0, remission Changed from Humira to Simponi Aria due to Medicare and continues to do well overall. Plan to continue with Simponi Aria d5ztjbr. Continue mtx 15mg weekly. Continue routine labs. F/u 3 months. Assessment & Plan (08/21/2020 6:51 PM RELATIONSHIP MANAGEMENT LEAD): cdai = 0, remission Changed from Humira to Simponi Aria due to Medicare and continues to do well overall. Plan to continue with Simponi Aria o0hjsqt. Continue mtx 15mg weekly. Continue routine labs. F/u 3 months. utd flu shot. utd fjtiimx39 and shingrix. Had booster of ditpsktze00 in 08/16. Had covid vaccine. Advised to hold mtx for 1 week following vaccine administration. Assessment & Plan (05/15/2020 1:35 PM RELATIONSHIP MANAGEMENT LEAD): cdai = 2, remission Changed from Humira to Simponi Aria due to Medicare and continues to do well overall. Plan to continue with Simponi Aria x0eafqy. Continue mtx 15mg weekly. Continue routine labs via standing order. F/u 3 months. utd flu shot. utd and shingrix. Had booster of pcxcbnbeg47 in 08/16. Assessment & Plan (02/15/2020 2:35 PM CDT): cdai = 3, remission Changed from Humira to Simponi Aria due to Medicare. Plan to continue with Simponi Aria l4ultbt. Continue mtx. utd labs. She is asking if she can get her labs done when here for infusions, z7pzoeo. I put in a standing order for this. F/u 3 months. utd flu shot. utd and shingrix. Had booster of fqdkeicjk68 in 08/16. Assessment & Plan (11/15/2019 1:24 PM CDT): cdai = 2, remission Changed from Humira to Simponi Aria due to Medicare. Plan to continue with Simponi Aria d7pktcj. Continue mtx. utd labs. Reviewed recent labs which were normal. Continue every 3 months. F/u 3 months. utd flu shot. To get booster of . utd qmmafzj94 and shingrix. Assessment & Plan (08/16/2019 1:38 PM RELATIONSHIP MANAGEMENT LEAD): cdai = 0 Changed from Humira to Simponi Aria due to Medicare. Plan to continue with Simponi Aria y5zoenl. Continue mtx. utd labs. Will give order to do labs again in 3 months. F/u 3 months. utd flu shot. To get booster of cacgatqif84. utd lajcqst89 and shingrix. Assessment & Plan (05/15/2019 1:19 PM RELATIONSHIP MANAGEMENT LEAD): cdai = 3 Recently changed from Humira to Simponi Aria due to Medicare. Plan to continue with Simponi Aria c1fdvsp. Continue mtx. utd labs. F/u 3 months. utd flu shot. To get booster of uwqdnvbqz70 and shingrix. Assessment & Plan (04/13/2019 4:36 PM CDT): Recently changed from Humira to Simponi Aria due to Medicare. Has a rash that started after simponi but I do not feel it is a reaction. See below. Will still plan to continue with Simponi Aria z5gseug. Continue mtx. utd labs. Keep next visit for 1 month. Assessment & Plan (02/08/2019 2:08 PM CDT): cdai = 3 Doing very well on mtx and humira at this time. Due to starting Medicare soon will plan to change to Simponi aria when out of her current supply of Humira. utd flu shot. utd labs. May do standing order y0gnuhuw since stable. f/u 3 months. Assessment & Plan (11/10/2018 4:31 PM CDT): cdai = 3 Doing very well on mtx and humira at this time. Will cont present meds. utd flu shot. utd labs. May do standing order k8bupjwm since stable. f/u 3 months. She will be going on Medicare soon when her retires and we may try changing to simponi aria at that time for better coverage. Assessment & Plan (08/10/2018 1:40 PM RELATIONSHIP MANAGEMENT LEAD): cdai = 5 Doing very well on mtx and humira at this time. Will cont present meds. utd flu shot. utd labs. May do standing order d7wwrxmo since stable. f/u 3 months. Assessment & [...] months Assessment & Plan (07/21/2017 11:21 AM RELATIONSHIP MANAGEMENT LEAD): cdai 3. Doing very well on mtx [...] Department Care Team Description 05/21/2025 Results Follow-Up [facility] [address] [place] [address] Allen Carrasco MD CBC with auto differential, Comprehensive metabolic panel, CRP (acute phase), Erythrocyte sedimentation rate 05/20/2025 11:15 AM RELATIONSHIP MANAGEMENT LEAD Office Visit [facility] [address] [place] [address] Chelsea Charles PA Seropositive rheumatoid arthritis of multiple sites (HCC) (Primary Dx); High risk medications (not anticoagulants) long-term use 03/25/2025 9:49 AM CDT - 03/25/2025 11:59 PM CDT Hospital Encounter [facility] ([facility]) [address] [place] [id number] Encounter for screening mammogram for malignant [...] on file Legal Sex Female 7:17 AM RELATIONSHIP MANAGEMENT LEAD Gender Identity Female 02/22/2021 1:14 PM CDT Sexual Orientation Not on file Obstetrics History Para Term AB IAB SAB Ectopic Multiple Livin g Live Births 2 2 Date Outcome GA Total Labor Labor/2nd/3rd Weight Sex Type Anes PTL Irma A1 A5 Name Clin Last Filed Vital Signs Vital Sign Reading Time Taken Comments Blood Pressure 126/78 05/20/2025 11:27 AM RELATIONSHIP MANAGEMENT LEAD Pulse 80 05/20/2025 11:27 AM RELATIONSHIP MANAGEMENT LEAD Temperature 36.6 C (97.8 F) 08/27/2021 1:22 PM RELATIONSHIP MANAGEMENT LEAD Respiratory Rate - - Oxygen Saturation 95% 05/20/2025 11:27 AM RELATIONSHIP MANAGEMENT LEAD Inhaled Oxygen Concentration - - Weight 94.8 kg (209 lb) 05/20/2025 11:27 AM RELATIONSHIP MANAGEMENT LEAD Height 165.1 cm (5' 5) 05/20/2025 11:27 AM RELATIONSHIP MANAGEMENT LEAD Body Mass Index 34.78 05/20/2025 11:27 AM RELATIONSHIP MANAGEMENT LEAD Plan of Treatment Health Maintenance Due Date [...] ERYTHROCYTE SEDIMENTATION RATE Routine 05/20/2025 1:00 PM RELATIONSHIP MANAGEMENT LEAD Seropositive rheumatoid arthritis of multiple sites (HCC) High risk medications (not anticoagulants) long-term use CRP (ACUTE PHASE) Routine 05/20/2025 1:0 0 PM RELATIONSHIP MANAGEMENT LEAD Seropositive rheumatoid arthritis of multiple sites (HCC) High risk medications (not anticoagulants) long-term use COMPREHENSIVE METABOLIC PANEL Routine 05/20/2025 1:00 PM RELATIONSHIP MANAGEMENT LEAD Seropositive rheumatoid arthritis of multiple sites (HCC) High risk medications (not anticoagulants) long-term use CBC WITH AUTO DIFFERENTIAL Routine 05/20/2025 1:00 PM RELATIONSHIP MANAGEMENT LEAD Seropositive rheumatoid arthritis of multiple sites (HCC) [...] CBC with auto differential (05/20/2025 1:00 PM RELATIONSHIP MANAGEMENT LEAD) [facility] WBC 7.3 3.8 - 10.8 Thousand/u L [...] [facility] Blood 05/20/2025 1:00 PM RELATIONSHIP MANAGEMENT LEAD 05/20/2025 1:01 PM RELATIONSHIP MANAGEMENT LEAD us Chelsea YING LAB BLOOD ORDERAB LES Final Result [facility] [address] [address] [id number] [address] [id number] * Erythrocyte sedimentation rate (05/20/2025 1:00 PM RELATIONSHIP MANAGEMENT LEAD) [facility] Erythrocyte sedimentation rate 17 < OR = 30 mm/h [facility] Blood 05/20/2025 1:00 PM RELATIONSHIP MANAGEMENT LEAD 05/20/2025 1:01 PM RELATIONSHIP MANAGEMENT LEAD Chelsea YING LAB BLOOD ORDERAB LES Final Result Performing Organization Address [facility] Co de Phone Number QUEST [facility] [address] [place] [address] * CRP (acute phase) (05/20/2025 1:00 PM RELATIONSHIP MANAGEMENT LEAD) [facility] C-RP <3.0 <8.0 mg/L [facility] Blood 05/20/2025 1:00 PM RELATIONSHIP MANAGEMENT LEAD 05/20/2025 1:01 PM RELATIONSHIP MANAGEMENT LEAD Chelsea YING LAB BLOOD ORDERAB LES Final Result Performing Organization Address [facility] Co de Phone Number QUEST [facility] [address] [place] [address] * (ABNORMAL) Comprehensive metabolic panel (05/20/2025 1:00 PM RELATIONSHIP MANAGEMENT LEAD) [facility] Glucose 93 65 - 99 mg/dL [facility] [...] [facility] Blood 05/20/2025 1:00 PM RELATIONSHIP MANAGEMENT LEAD 05/20/2025 1:01 PM RELATIONSHIP MANAGEMENT LEAD us Chelsea YING LAB BLOOD ORDERAB LES Final Result [facility] [address] [place] [address] * Screening Mammogram Bilateral W Ivan (03/25/2025 [...] with a HCV Nucleic Acid Amplification test ([id number]). Blood specimen (specimen) 02/16/2019 10:01 AM CDT 02/16/2019 Narrative [facility] - 02/17/2019 6:08 AM CDT Performed at: [facility] [id number] It Quality Analyst: Derek Ryan PhD, Phone: [phone] us Ange YING LAB MICROBIOLOGY - GENER AL ORDERABLES Final Result Performing Organization Address City/State/[facility] Co de Phone Number [facility] - 01 from Last 3 Months or Most Recently Relevant to Health [place] [address] MEDICARE [facility] MEDICARE MEDICARE [place] [employer] [address] [facility] MEDICARE MEDICARE [employer] MEDICARE [place] [facility] [employer] Care Teams Product Safety Tester Relationship Specialty Start Date End Date Jennifer Vo NP [address] [place] [address] [place] [address] PCP - General 03/25/25 Allen Carrasco MD [address] [place] [address] Consulting Physician Rheumatology 07/19/23
--- OUTSIDE RECORDS SUMMARY | 2025-05-27 16:46 | XMS_ITS | Clinical Summary ---
Author Organization [facility] Address [address] [place] [address] Care Team Providers Care Textile Technologist Name Role Phone Joy Reed WINNIE-FAX MACHINE REPAIRER Primary Care Provider + Source Comments [facility],non-owned Affiliates and Associated Physician Practices is amultiple site organization consisting of ambulatory clinics and hospital sitesin [place], [place], [place] and [place]. This disclosure is being madepursuant to the Care Everywhere program and may not contain all information available regarding this patient. Last updated 18.[facility] Allergies Active Allergy Reactions Criticality Noted Date Comments Sulfa Drugs Urticaria Medium 12/27/2018 Medications * Be aware that medications may not be up to date on this document. Alwaysverify current medications with the patient. 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 Gender Identity Not on file Sexual Orientation [...] patient's age to complete this topic Insurance [facility] MEDICARE [facility] [place] [id number] SELF PAY NO INSURANCE Member Subscriber Plan / Payer (Ef fective for All Dates) Name:Betzy Long Member ID:Not on file Relation to Subscriber:Not on file Name:BETZY LONG Subscriber ID:Not on file (Home) Address: [place] [address] Payer ID:Not on file Group ID:Not on file Type:Self Pay Address: [place], [place] MEDICARE [facility] [place] [address] Care Teams Textile Technologist Relationship Specialty Start Date End Date Joy Reed APRN-CNP [address] [address] PCP - General 10/17/18
--- OUTSIDE RECORDS SUMMARY | 2025-05-27 16:46 | XMS_ITS | Encounter Summary ---
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
--- OUTSIDE RECORDS SUMMARY | 2025-05-27 16:46 | XMS_ITS | Clinical Summary ---
Author Organization [facility] Address [address] [facility] [address] [place] [address] Phone Care Team Providers Care Supervisor Motor Vehicle Assembly Name Role Phone Derek Joy Vinod ZHOU Primary Care Provider [phone] Allergies Active Allergy Reactions Criticality Noted Date [...] (MULTIVITAMIN PO) Take by mouth daily. Active [place]-3 Fatty Acids (FISH OIL PO) Take by [...] complete this topic Insurance MEDICARE Care Teams Supervisor Motor Vehicle Assembly Relationship Specialty Start Date End Date Joy Reed APRN PCP - General Advanced Practice Nurse 10/14/20
--- OUTSIDE RECORDS SUMMARY | 2025-05-27 16:46 | XMS_ITS | Data Portability ---
Author Organization [place] [facility] [employer], Main Office Address [address] [place] [address] Assessment Encounter Date Assessment Date Assessment LastModified by Organization Details LastModified Time 02/22/2025 02/22/2025 Recently had CBC and CMP with specialist, these were WNLs, pt will have faxed to our office [email or web address] Not available 02/22/2025 12:03:24 Plan of Treatment Reminders Order Date Submit Date Provider Last Modified By Organization Details Last Modified Time Details Appointments Physical/ Annual Wellness 30 2024 10:30A M RADHA Styles Not available Not available Not available Lab vitamin D, 25-hydrox y, total, serum 2024 025 [email or web address] [facility], [address] [place] [address], [address], 03/01/2025 10:46:37 TSH + free T4, serum 2024 025 [email or web address] [facility], [address] [place] [address], [address], 03/01/2025 10:46:37 HbA1c (hemoglob in A1c), blood 2024 025 [email or web address] [facility], [address] [place] [address], [address], 03/01/2025 10:46:37 lipid panel, serum 2024 025 [email or web address] [facility], [address] [place] [address], [address], 03/01/2025 10:46:37 urinalysi s, dipstick 2024 025 [email or web address] [facility], [address] [facility], [place], [address], 12/10/2024 17:31:19 culture, urine 2024 025 [facility], [address] [facility], [address], [place], [address], 10/04/2024 12:59:10 Referral gastroent erologist referral - Feels food sticking gain . Please re-eval and treat .Please call patient to schedule an appointme nt. Thank you [address] - Gastroenterol og, [address], [address], [place], [address], 03/15/2024 08:45:54 Procedures None recorded. Surgeries None recorded. Imaging MAMMO, screening , digital, bilateral - Please call patient to schedule. 2024 025 [facility], [address], [place], [address], 03/26/2025 14:59:24 MAMMO, screening , digital, bilateral 2023 024 [email or web address] 56 [facility], [address], [place], [address], 03/01/2024 09:05:19 Medication Orders ciproflox acin 500 mg tablet 2024 025 [facility][id number], [address] [facility], [place], [place], [id number], 02/22/2025 11:53:53 ondansetr on 4 mg disintegr ating tablet 2024 025 [email or web address] [facility] #40847, [address], [place], [place], [id number], 11/06/2024 11:53:11 ciproflox acin 500 mg tablet 2024 025 camilla [facility] #65283, [address], [place], [place], [id number], 02/22/2025 11:53:53 amoxicill in 875 mg-potass ium clavulana te 125 mg tablet 2023 024 [email or web address] [facility] #87383, [address], [place], [place], [id number], 09/18/2024 08:42:26 Patient TargetsNo targets recorded. Patient Instructions Encounter Date Encounter Id Patient Instructions Last Modified By Organization Details Last Modified Time 02/16/2024 [id number] dementia rating scale-2* [email or web address] Not available 02/16/2024 11:37:08 alcohol misuse* [email or web address] Not availab le 02/23/2024 12:56:52 depression screening* [email or web address] Not available 02/23/2024 12:56:52 multi-dimensiona l health assessment questionnaire* Not available 02/16/2024 11:07:58 Personalized Hea lt Plan and Screening Recommendations Advance Directives - Do you have one? No I have no recommendations Advance Directives - Do we have your advance directive on file in your health record? Primary Prevention/Interven tion (prevents or decreases the chance of common diseases from occurring) Smoking Risk: Non Smoker I have no recommendations Alcohol Misuse Screening: Negative I have no recommendations Weight: Overweight try to lose 10% of your body weight Physical activity: Need more exercise/physical activity minimum of 20-30 minutes activity that causes mild breathlessness/day Nutrition: Average Eat Heart Healthy Diet Fall Risk (screened today): Low I have no recommendations Vaccines Pneumococcal: No further needed Influenza: Your next one in the fall of this year Chronic Disease Risks Stroke: Low Risk Active diagnosis, Continue current treatment plan Heart Attack: Low risk Active diagnosis, Continue current treatment plan Clogging of the Arteries: Low risk Active diagnosis, Continue current treatment plan Diabetes: Low Risk I have no recommendations Secondary Prevention/Interven tion (detects treatable diseases before they may cause symptoms, disability, or ) Breast Cancer Screening with mammogram: Recommended today Cervical/Uterine/Ov brea Cancer Screening: No screening necessary Osteoporosis Screening: Recommended today, but you have declined Date Screening Last Performed: Colon Cancer Screening: Colonoscopy Recommended today, but you have declined Date Screening Last Performed: patient unaware of last one. 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 Please re-eval and treat .Please call patient to schedule an appointment. Thank you Referring Physician: Tello Avelar, Family Medicine, Encounter Date: 02/16/2024 Results Created Date Observation Date Name Description Value Unit Range Abnormal Flag Note LastModifiedBy Organization Detail LastModifiedTime 03/17/20 24 03/18/2024 TSH+F REE T4 TSH 1.250 uIU/m L 0.450- 4.500 normal Not Available [facility] ([facility]) [address] [place], [address], 03/18/2024 09:36:17 03/17/20 24 03/18/2024 TSH+F REE T4 T4,free(dire ct) 1.13 NG/dL 0.82-1 .77 normal Not Available [facility] ([facility]) [address] [place], [address], 03/18/2024 09:36:17 03/17/20 24 03/18/2024 CBC WITH DIFFE RENTI AL/PL ATELE T WBC 8.2 x10e3 /uL 3.4-10 .8 normal Not Available [facility] ([facility]) [address] [place], [address], 03/18/2024 09:36:18 03/17/20 24 03/18/2024 CBC WITH DIFFE RENTI AL/PL ATELE T RBC 4.56 x10e6 /uL 3.77-5 .28 normal Not Available [facility] ([facility]) [address] [place], [address], 03/18/2024 09:36:18 03/17/20 24 03/18/2024 CBC WITH DIFFE RENTI AL/PL ATELE T hemoglobin 14.4 g/dL 11.1-1 5.9 normal Not Available [facility] ([facility]) [address] [place], [address], 03/18/2024 09:36:18 03/17/2003/18/2024 CBC WITH DIFFE RENTI AL/PL ATELE T hematocrit 44.7 % 34.0-4 6.6 normal Not Available [facility] ([facility]) [address] [place], [address], 03/18/2024 09:36:18 03/17/20 24 03/18/2024 CBC WITH DIFFE RENTI AL/PL ATELE T MCV 98 fL 79-97 above high normal Not Available [facility] ([facility]) [address] [place], [address], 03/18/2024 09:36:18 03/17/20 24 03/18/2024 CBC WITH DIFFE RENTI AL/PL ATELE T MCH 31.6 pg 26.6-3 3.0 normal Not Available [facility] ([facility]) [address] [place], [address], 03/18/2024 09:36:18 03/17/20 24 03/18/2024 CBC WITH DIFFE RENTI AL/PL ATELE T MCHC 32.2 g/dL 31.5-3 5.7 normal Not Available [facility] ([facility]) [address] [place], [address], 03/18/2024 09:36:18 09/21/03/18/2024 CBC WITH DIFFE RENTI AL/PL ATELE T RDW 13.4 % 11.7-1 5.4 Not Available [facility] ([facility]) [address] [facility], [place], [address], 03/18/2024 09:36:18 03/17/20 24 03/18/2024 CBC WITH DIFFE RENTI AL/PL ATELE T platelets 212 x10e3 /uL 150-45 0 normal Not Available [facility] ([facility]) [address] [facility], [place], [address], 03/18/2024 09:36:18 03/17/20 24 03/18/2024 CBC WITH DIFFE RENTI AL/PL ATELE T neutrophils 75 % not estab. normal Not Available [facility] ([facility]) [address] [facility], [place], [address], 03/18/2024 09:36:18 03/17/20 24 03/18/2024 CBC WITH DIFFE RENTI AL/PL ATELE T lymphs 17 % not estab. normal Not Available [facility] ([facility]) [address] [facility], [place], [address], 03/18/2024 09:36:18 03/17/20 24 03/18/2024 CBC WITH DIFFE RENTI AL/PL ATELE T monocytes 4 % not estab. normal Not Available [facility] ([facility]) [address] [facility], [place], [address], 03/18/2024 09:36:18 03/17/20 24 03/18/2024 CBC WITH DIFFE RENTI AL/PL ATELE T eos 3 % not estab. normal Not Available [facility] ([facility]) [address] [facility], [place], [address], 03/18/2024 09:36:18 03/17/20 24 03/18/2024 CBC WITH DIFFE RENTI AL/PL ATELE T basos 1 % not estab. 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 0 normal Not Available [facility] ([facility]) [address] [facility], [place], [address], 03/18/2024 09:36:18 03/17/20 24 03/18/2024 CBC WITH DIFFE RENTI AL/PL ATELE T lymphs (absolute) 1.4 x10e3 /uL 0.7-3. 1 normal Not Available [facility] ([facility]) [address] [place], [address], 03/18/2024 09:36:18 03/17/20 24 03/18/2024 CBC WITH DIFFE RENTI AL/PL ATELE T monocytes(ab solute) 0.4 x10e3 /uL 0.1-0. 9 normal Not Available [facility] ([facility]) [address] [place], [address], 03/18/2024 09:36:18 03/17/20 24 03/18/2024 CBC WITH DIFFE RENTI AL/PL ATELE T eos (absolute) 0.2 x10e3 /uL 0.0-0. 4 normal Not Available [facility] ([facility]) [address] [place], [address], 03/18/2024 09:36:18 03/17/20 24 03/18/2024 CBC WITH DIFFE RENTI AL/PL ATELE T baso (absolute) 0.1 x10e3 /uL 0.0-0. 2 normal Not Available [facility] ([facility]) [address] [facility], [place], [address], 03/18/2024 09:36:18 03/17/20 24 03/18/2024 CBC WITH DIFFE RENTI AL/PL ATELE T immature granulocytes 0 % not estab. Not Available [facility] ([facility]) [address] [facility], [place], [address], 03/18/2024 09:36:18 03/17/20 24 03/18/2024 CBC WITH DIFFE RENTI AL/PL ATELE T immature grans (abs) 0.0 x10e3 /uL 0.0-0. 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 METAB OLIC PANEL (14) glucose 104 mg/dL 70-99 above high normal Not Available [facility] ([facility]) [address] [place], [address], 03/18/2024 09:36:18 03/17/20 24 03/18/2024 COMP. METAB OLIC PANEL (14) BUN 13 mg/dL 8-27 normal Not Available [facility] ([facility]) [address] [place], [address], 03/18/2024 09:36:18 03/17/20 24 03/18/2024 COMP. METAB OLIC PANEL (14) creatinine 0.80 mg/dL 0.57-1 .00 normal Not Available [facility] ([facility]) [address] [place], [address], 03/18/2024 09:36:18 03/17/20 24 03/18/2024 COMP. METAB OLIC PANEL (14) eGFR 79 mL/mi n/1.7 3 >59 normal Not Available [facility] ([facility]) [address] [place], [address], 03/18/2024 09:36:18 03/17/20 24 03/18/2024 COMP. METAB OLIC PANEL (14) BUN/creatini ne ratio 16 12-28 normal Not Available [facility] ([facility]) [address] [place], [address], 03/18/2024 09:36:18 03/17/20 24 03/18/2024 COMP. METAB OLIC PANEL (14) sodium 142 mmol/ L 134-14 4 normal Not Available [facility] ([facility]) [address] [place], [address], 03/18/2024 09:36:18 03/17/20 24 03/18/2024 COMP. METAB OLIC PANEL (14) potassium 4.5 mmol/ L 3.5-5. 2 normal Not Available [facility] ([facility]) [address] [place], [address], 03/18/2024 09:36:18 03/17/20 24 03/18/2024 COMP. METAB OLIC PANEL (14) chloride 104 mmol/ L 96-106 normal Not Available [facility] ([facility]) [address] [place], [address], 03/18/2024 09:36:18 03/17/20 24 03/18/2024 COMP. METAB OLIC PANEL (14) carbon dioxide, total 23 mmol/ L 20-29 normal Not Available [facility] ([facility]) [address] [place], [address], 03/18/2024 09:36:18 03/17/20 24 03/18/2024 COMP. METAB OLIC PANEL (14) calcium 9.4 mg/dL 8.7-10 .3 normal Not Available [facility] ([facility]) [address] [place], [address], 03/18/2024 09:36:18 03/17/20 24 03/18/2024 COMP. METAB OLIC PANEL (14) protein, total 6.8 g/dL 6.0-8. 5 normal Not Available [facility] ([facility]) [address] [facility] [place], [address], 03/18/2024 09:36:18 03/17/20 24 03/18/2024 COMP. METAB OLIC PANEL (14) albumin 4.1 g/dL 3.9-4. 9 normal Not Available [facility] ([facility]) [address] [facility] [place], [address], 03/18/2024 09:36:18 03/17/20 24 03/18/2024 COMP. METAB OLIC PANEL (14) globulin, total 2.7 g/dL 1.5-4. 5 Not Available [facility] ([facility]) [address] [facility] [place], [address], 03/18/2024 09:36:18 03/17/20 24 03/18/2024 COMP. METAB OLIC PANEL (14) bilirubin, total 1.0 mg/dL 0.0-1. 2 normal Not Available [facility] ([facility]) [address] [facility] [place], [address], 03/18/2024 09:36:18 03/17/20 24 03/18/2024 COMP. METAB OLIC PANEL (14) alkaline phosphatase 92 IU/L 44-121 normal Not Available [facility] ([facility]) [address] [place], [address], 03/18/2024 09:36:18 03/17/20 24 03/18/2024 COMP. METAB OLIC PANEL (14) AST (SGOT) 18 IU/L 0-40 normal Not Available [facility] ([facility]) [address] [place], [address], 03/18/2024 09:36:18 03/17/20 24 03/18/2024 COMP. METAB OLIC PANEL (14) ALT (SGPT) 15 IU/L 0-32 normal Not Available [facility] ([facility]) [address] [place], [address], 03/18/2024 09:36:18 03/17/20 24 03/18/2024 LIPID PANEL cholesterol, total 209 mg/dL 100-19 9 above high normal Not Available [facility] ([facility]) [address] [place], [address], 03/18/2024 09:36:18 03/17/20 24 03/18/2024 LIPID PANEL triglyceride s 114 mg/dL 0-149 normal Not Available [facility] ([facility]) [address] [place], [address], 03/18/2024 09:36:18 03/17/20 24 03/18/2024 LIPID PANEL HDL cholesterol 69 mg/dL >39 normal Not Available [facility] ([facility]) [address] [place], [address], 03/18/2024 09:36:18 03/17/20 24 03/18/2024 LIPID PANEL VLDL cholesterol onel 20 mg/dL 5-40 Not Available [facility] ([facility]) [address] [facility] [place], [address], 03/18/2024 09:36:18 03/17/20 24 03/18/2024 LIPID PANEL LDL chol calc ([facility]) 120 mg/dL 0-99 above high normal Not Available [facility] ([facility]) [address] [facility] [place], [address], 03/18/2024 09:36:18 03/17/20 24 03/18/2024 LIPID PANEL LDL calc 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 Not Available [facility] ([facility]) [address] [facility] [place], [address], 03/18/2024 09:36:19 03/17/2003/18/2024 VITAM IN D, 25-HY DROXY vitamin D, 25-hydroxy 30.3 NG/mL 30.0-1 00.0 Vitam in D defic iency has been defin ed by the Insti antoinette of Medic ine and an Endoc rosaliee Socie ty pract ice guide line as a level of serum 25-OH vitam in D less than 20 ng/mL (1,2) . The Endoc rine Socie ty went on to fur er defin e vitam in D insuf ficie ncy as a level betwe en 21 and 29 ng/mL (2). 1. IOM (Inst itute of Medic ine). 2010. Dieta ry refer ence colleen es for calci um and D. Isha shelley [place]: [facility] . 2. Holic k MF, Binkl ey [place], Bisch off-F errar i SMITH, et al. Evalu ation , treat ment, and preve ntion of vitam in D defic iency : an Endoc rine Socie ty clini onel pract ice guide line. JCEM. 2010; 96(7) :1911 -30. Not Available [facility] ([facility]) [address] [facility], [place], [address], 03/18/2024 09:36:19 03/17/20 24 03/18/2024 CREAT INE KINAS E,TOT AL creatine kinase,total 69 U/L 32-182 normal Not Available [facility] ([facility]) [address] [facility], [place], [address], 03/18/2024 09:36:20 04/10/20 24 03/22/2024 MAMMO , scree tomeka, digit al, bilat eral No observ ation record ed. [email or web address] [place] [facility] [address] [place] [address], [address], 05/23/2024 11:03:55 09/18/19 25 09/17/2024 CT, abdom en + pelvi s, w/ contr ast No observ ation record ed. [email or web address] [address] [facility], [place], [address], 12/10/2024 17:32:32 03/01/20 25 02/26/2025 DEXA No observ ation record ed. [email or web address] [address], [place], [address], 03/11/2025 08:46:37 03/26/20 25 03/25/2025 MAMMO , scree tomeka, digit al, bilat eral No observ ation record ed. [email or web address] [facility] [address] [place], [address], 03/27/2025 18:26:27 Result Notes None recorded. Problems Name Problem SNOMED Code Status Onset Date Resolution Date Notes Provider Name and Address Organization Details Recorded Time Acute sinusitis 28944373 Completed Not Available [facility] 3 06:14:25 Pain in throat 133329744 Completed Not Available [facility] 3 06:14:25 Ankle pain 338485139 Completed Not Available [facility] 3 06:14:25 Hypertrigl yceridemia 114883923 Active Not Available [facility] 3 06:14:25 Argueta's esophagus 674679091 Active Not Available [facility] 3 06:14:25 Vitamin D deficiency 90317861 Active Not Available [facility] 3 06:14:25 Patient immunosupp ressed 141504122 Active Not Available [facility] 3 06:14:25 Foot pain 63440403 Completed Not Available [facility] 3 06:14:25 Anxiety 01146087 Active Not Available [facility] 3 06:14:25 Cough 43518931 Active Not Available [facility] 3 06:14:25 Upper respirator y infection 33358759 Completed Not Available [facility] 3 06:14:25 Hyperlipid emia 32289055 Active Not Available [facility] 3 06:14:25 Urinary tract infectious disease 66981479 Completed Not Available [facility] 3 06:14:25 Varicose veins of lower extremity 92362191 Active Not Available [facility] 3 06:14:26 Posterior rhinorrhea 81739519 Active Not Available [facility] 3 06:14:26 Fatigue 32785695 Completed Not Available [facility] 3 06:14:26 Acid reflux 307299927 Active 2016 Not Available [facility] 3 06:14:25 Rheumatoid arthritis 56559078 Active 2016 Not Available [facility] 3 06:14:26 Stricture of esophagus 65398577 Active 2017 Not Available [facility] 3 06:14:25 Mixed anxiety and depressive disorder 967877864 Active 2022 Rachid Messina MD [address], [place], [address] , [place] [facility] 3 08:28:29 Impaired fasting glycemia 016713685 Active 2022 Rachid Messina MD [address], [address], [place], [address] , [place] [facility] 3 10:25:21 Acute right otitis media 594449665 Active 2022 DEONNA Hope [address], [place], [address] , [place] [facility] 3 11:52:07 Sinusitis 05933942 Active 2022 DEONNA Hope [address], [place], [address] , [place] [facility] 5 12:04:54 Allergic rhinitis 13316982 Active 2022 DEONNA Hope [address], [place], [address] , [place] [facility] 3 12:02:59 SARS-CoV-2 Active 2022 DEONNA Hope [address], [place], [address] , [place] [facility] 3 12:58:01 Acute urticaria 915695224 Active 2023 DEONNA Hope [address], [place], [address] , [place] [facility] 4 11:31:48 Screening mammograph y Active 2023 DEONNA Hope [address], [place], [address] , [facility] 4 10:54:09 Varicose veins of lower extremity 06771327 Active 2024 DEONNA Hope [address], [place], [address] , [facility] 5 16:38:11 Nausea 388778340 Active 2024 DEONNA Hope [address], [place], [address] , [employer] 5 11:02:44 Colitis 14260014 Active 2024 DEONNA Hope [address], [place], [address] , [employer] 5 11:04:11 Left flank pain 984341876 Active 2024 DEONNA Hope [address], [place], [address] , [facility] 5 11:09:16 Viral upper respirator y tract infection 108187381 Active 2024 RADHA Styles [address], [place], [address] , [facility] 5 12:07:48 Postmenopa usal osteoporos is 581829392 Active 2024 RADHA Styles [address], [place], [address] , [facility] 5 15:16:59 Problem Notes None recorded. Procedures Surgical History Date Name Laterality Status Provider Name and Address Organization Details Recorded Time 02/16/20 24 Medicare Wellness CPT Code, subsequent completed Marzena Nguyễn RN [facility] [email or web address] 02/16/2024 10:39:48 02/16/20 24 Advanced Care Planning completed Kirstie Lutz RN [facility] [email or web address] 02/16/2024 12:03:48 11/24/19 23 Medicare Wellness CPT Code, subsequent completed LEONARD Schneider [facility] 11/19/2022 12:32:56 EGD completed Not Available Counts include [facility] beds at the [facility] 08/25/2022 06:08:21 Cholecystectomy completed Not Available Counts include 234 beds at the [facility] 08/25/2022 06:08:21 Orthopedic Surgery completed Not Available Counts include 234 beds at the [facility] 08/25/2022 06:08:21 Hysterectomy completed Not Available Counts include 234 beds at the [facility] 08/25/2022 06:08:21 Tonsillectomy completed Not Available Counts include 234 beds at the [facility] 08/25/2022 06:08:21 extraction of cataract completed Marzena Nguyễn RN [place] [facility] 02/16/2024 10:44:48 Imaging Results None recorded. Procedure Notes None recorded. Medical Equipment None Reported. Allergies Allergen ID Allergen Name Allergen Category Reaction Reaction Severity Criticality Documentation Date Start Date Code Code System Note Provider Name and Address Organization Details Recorded Time 19630 Substance with sulfonami de structure and antibacte rial mechanism of action (substanc e) medicatio n hives Not available Not available 08/25/2022 21049 8003 SNOMED Not Available Counts include 234 beds at the [facility] 3 06:20:31 15959 Benadryl medicatio n rash mild unabletoasse 01/16/2024 32498 7 RxNorm Stephanie weston [place] Da[place] 4 11:34:43 18315 diphenhyd ramine hydrochlo ride medicatio n hives Not available [facility] 05/15/20252018 1362 RxNorm React ion: hives , , pt denie s aller gy to diphe nhydr amine . Not Available [employer] - prod 5 11:01:12 96644 sulfanila mide medicatio n Not available Not available Not available 05/15/2025 18847 RxNorm Not Available [employer] [facility] [employer] 5 11:01:12 Medications Name Sig Start Date Stop Date Status Note LastModified by Organization Details LastModified Time diclofena c 75 mg-misopr ostol 200 mcg tablet,im mediate,d elayed release Take 1 tablet every day by oral route for 30 days. active prn Not Available Not Available No t Available fluoxetin e 40 mg capsule TAKE 2 CAPSULES BY MOUTH EVERY DAY 02/15 completed Not Available Not Available Not Available amoxicill in 500 mg capsule TAKE 4 CAPSULES BY MOUTH 1 HOUR BEFORE DENTAL APPOINTM ENT 09/21 completed Not Available Not Available Not Available hydrocodo ne 7.5 mg-ibupro fen 200 mg tablet 10/27 completed Not Available Not Available Not Available rabeprazo le 20 mg tablet,de layed release TAKE 1 TABLET DAILY 01/30 completed Not Available Not Available Not Available doxycycli ne hyclate 100 mg capsule Take 1 capsule twice a day by oral route for 10 days. active Not Available Not Available No t Available ipratropi um 0.5 mg-albute rol 3 mg (2.5 mg base)/3 mL nebulizat ion soln Inhale 3 mL as needed by nebuliza tion route as needed. active [facility][NOTE 3]# [id number] 06-29 Not Available Not Available Not Available albuterol sulfate 2.5 mg/3 mL (0.083 %) solution for nebulizat ion Inhale 3 mL 4 times a day by nebuliza tion route. active [facility][NOTE 3]# [id number] 06-29 Not Available Not Available Not Available azithromy marisabel 250 mg tablet 2 tabs po for 1 day then 1 tab daily for 4 days 09/18 completed Not Available Not Available Not Available valacyclo vir 1 gram tablet TAKE 1 TABLET BY MOUTH EVERY 8 HOURS FOR 7 DAYS 09/18 completed Not Available Not Available Not Available hydrocodo ne 5 mg-acetam inophen 325 mg tablet TAKE 1 TABLET BY MOUTH EVERY 4 TO 6 HOURS NEEDED FOR PAIN active Not Available Not Available No t Available Celestone Soluspan 6 mg/mL suspensio n for injection active [facility][NOTE 3]# [id number] Not Available Not Available Not Available prednison e 20 mg tablet TAKE 2 TABLETS TWICE DAILY X 2 DAYS 1 TABLET TWICE DAILY X 5 DAYS 1/2 TABLET TWICE DAILY X 2 DAYS 1/2 TABLET DAILY X 1 DAY 02/15 completed Not Available Not Available Not Available alendrona te 70 mg tablet Take 1 tablet every week by oral route as directed for 84 days. 2024 active Not Available Not Available Not Avai lable Tubersol 5 tub. unit/0.1 mL intraderm al injection solution 07/03 completed Internal note: READ NEGATIVE 14E xternal note: NEGATIVE 02/20/14 Not Available Not Available Not Available dexametha sone 6 mg tablet TAKE 1 TABLET BY MOUTH EVERY DAY IN THE MORNING FOR 7 DAYS 02/15 completed Not Available Not Available Not Available penicilli n V potassium 500 mg tablet TAKE 1 TABLET BY MOUTH FOUR TIMES DAILY UNTIL GONE 03/25 completed Not Available Not Available Not Available metronida zole 500 mg tablet TAKE 1 TABLET BY MOUTH TWICE DAILY UNTIL ALL TAKEN 03/25 completed Not Available Not Available Not Available hydroxyzi ne HCl 50 mg tablet TAKE 1 TABLET BY MOUTH EVERY 8 HOURS NEEDED 09/18 completed Not Available Not Available Not Available acetamino phen 300 mg-codein e 30 mg tablet 02/18 completed Not Available Not Available Not Available ciproflox acin 250 mg tablet TAKE 1 TABLET BY MOUTH EVERY 12 HOURS FOR 5 DAYS active Not Available Not Available No t Available ciproflox acin 500 mg tablet TAKE 1 TABLET BY MOUTH EVERY 12 HOURS 02/22 completed Not Available Not Available Not Available omeprazol e 40 mg capsule,d elayed release TAKE 1 CAPSULE BY MOUTH EVERY DAY 30 MINUTES BEFORE FOOD 09/21 completed Not Available Not Available Not Available tramadol 50 mg tablet TAKE 1 TABLET BY MOUTH EVERY 4 TO 6 HOURS NEEDED FOR PAIN 03/25 completed Not Available Not Available Not Available amoxicill in 500 mg tablet TAKE 4 TABLETS BY MOUTH 1 HOUR PRIOR TO APPOITNM ENT 01/02 completed Not Available Not Available Not Available cefadroxi l 500 mg capsule 12/27 completed Not Available Not Available Not Available amoxicill in 875 mg tablet Take 1 tablet every 12 hours by oral route with meals for 10 days. 02/16 completed Not Available Not Available Not Available methotrex ate sodium 2.5 mg tablet TAKE 6 TABLETS BY MOUTH EVERY WEEK active Not Available Not Available No t Available benzonata te 100 mg capsule Take 1 capsule twice a day by oral route. active Not Available Not Available No t Available simvastat in 5 mg tablet Take 1 tablet every day by oral route for 90 days. active Not Available Not Available No t Available hydrocodo ne 7.5 mg-acetam inophen 325 mg tablet TAKE 1 TABLET BY MOUTH EVERY 4 TO 6 HOURS NEEDED FOR PAIN 02/16 completed Not Available Not Available Not Available cephalexi n 500 mg capsule TAKE 1 CAPSULE BY MOUTH EVERY 6 HOURS UNTIL GONE active Not Available Not Available No t Available pantopraz ole 40 mg tablet,de layed release Take 1 tablet every day by oral route at bedtime for 30 days. 2024 active Not Available Not Available Not Avai lable simvastat in 20 mg tablet TAKE 1 TABLET BY MOUTH EVERY NIGHT AT BEDTIME active Not Available Not Available No t Available amoxicill in 125 mg-potass ium clavulana te 31.25 mg/5 mL oral susp active Not Available Not Available No t Available nitrofura ntoin macrocrys berlin 100 mg capsule Take 1 capsule every 6 hours by oral route with meals for 7 days. active Not Available Not Available No t Available oxybutyni n chloride ER 5 mg tablet,ex tended release 24 hr TAKE 1 TABLET BY MOUTH EVERY DAY 02/15 completed Not Available Not Available Not Available omeprazol e 20 mg capsule,d elayed release TAKE 1 CAPSULE BY MOUTH EVERY DAY 01/15 completed on 40 mg Not Available Not Available Not Available diclofena c sodium 75 mg tablet,de layed release TAKE 1 TABLET BY MOUTH DAILY 09/18 completed Not Available Not Available Not Available folic acid 1 mg tablet TK 1 T PO D active Not Available Not Available No t Available ceftriaxo ne 500 mg solution for injection active [facility][NOTE 3]# [id number] 38-01 Not Available Not Available Not Available Cheratuss in AC 10 mg-100 mg/5 mL oral liquid Take 10 mL every 4-6 hours by oral route as needed. active Not Available Not Available No t Available levofloxa marisabel 750 mg tablet Take 1 tablet every day by oral route as directed for 14 days. active Not Available Not Available No t Available methylpre dnisolone 4 mg tablets in a dose pack TAKE 6 TABLETS ON DAY 1 DIRECTED ON PACKAGE AND DECREASE BY 1 TAB EACH DAY FOR A TOTAL OF 6 DAYS 05/01 completed Not Available Not Available Not Available ketoconaz ole 2 % topical cream APPLY 1 APPLICAT ION TWICE DAILY FOR 4 WEEKS 09/18 completed Not Available Not Available Not Available ondansetr on 4 mg disintegr ating tablet DISSOLVE 1 TABLET ON THE TONGUE THREE TIMES DAILY NEEDED 11/06 completed Not Available Not Available Not Available fluoxetin e 20 mg capsule TAKE 3 CAPSULES BY MOUTH EVERY DAY active Not Available Not Available No t Available fluticaso ne propionat e 50 mcg/actua tion nasal spray,nnamdi pension SHAKE LIQUID AND USE 1 SPRAY IN EACH NOSTRIL TWICE DAILY EVERY DAY DIRECTED active Not Available Not Available No t Available naproxen 500 mg tablet TAKE 1 TABLET BY MOUTH TWICE DAILY WITH FOOD 09/18 completed Not Available Not Available Not Available amoxicill in 875 mg-potass ium clavulana te 125 mg tablet Take 1 tablet every 12 hours by oral route for 10 days. 09/18 completed Not Available Not Available Not Available neomycin- polymyxin -hydrocor t 3.5 mg-10,000 unit/mL-1 % ear drops,nnamdi p INSTILL 4 DROPS INTO AFFECTED EAR(S) BY OTIC ROUTE 3 TIMES PER DAY 02/15 completed Not Available Not Available Not Available Benadryl Allergy 25 mg tablet Take 1 tablet every day by oral route at bedtime for 30 days. 09/21 completed Not Available Not Available Not Available Pneumovax -23 25 mcg/0.5 mL injection syringe ADM 0.5ML IM UTD 02/16 completed Not Available Not Available Not Available ezetimibe 10 mg tablet TAKE 1 TABLET BY MOUTH EVERY DAY IN THE MORNING FOR HIGH CHOLESTE ROL active Not Available Not Available No t Available Metamucil 0.52 gram capsule Take 2 capsules twice a day by oral route. 09/21 completed Not Available Not Available Not Available ciproflox acin 0.3 %-dexamet hasone 0.1 % ear drops,nnamdi pension SHAKE LIQUID AND INSTILL 4 DROPS TO AFFECTED EAR TWICE DAILY FOR 7 DAYS 02/15 completed Not Available Not Available Not Available Crestor 5 mg tablet TAKE 1 TABLET DAILY active Not Available Not Available No t Available nitrofura ntoin monohydra te/macroc rystals 100 mg capsule TAKE 1 CAPSULE BY MOUTH EVERY 12 HOURS FOR 5 DAYS 03/25 completed Not Available Not Available Not Available Fish Oil TAKES 1200 MG DAILY 03/25 completed Not Available Not Available Not Available multivita min 1 PO QD 2014 active Not Available Not Available Not Avai lable Calcium 600 + D(3) 1 PO BID 2014 active Not Available Not Available Not Avai lable Humira Pen 40 mg/0.8 mL subcutane ous kit Inject 40 mg every 2 weeks by sub-q route for 28 days. 05/01 completed Not Available Not Available Not Available Enbrel SureClick 50 mg/mL (1 mL) subcutane ous pen injector 02/18 completed Not Available Not Available Not Available Duexis 800 mg-26.6 mg tablet TAKE 1 TABLET BY MOUTH 3 TIMES A DAY PRN 04/29 completed Not Available Not Available Not Available golimumab 12.5 mg/mL intraveno us solution Inject by intraven ous route. active Not Available Not Available No t Available Fluvirin 9676-8168 45 mcg (15 mcg x 3)/0.5 mL intramusc ular suspensio n 02/18 completed Not Available Not Available Not Available Fluvirin [id number] 45 mcg (15 mcg x 3)/0.5 mL intramusc ular suspensio n active Not Available Not Available Not Available Fluvirin 2421-5254 45 mcg (15 mcg x 3)/0.5 mL intramusc ular suspensio n ADM 0.5ML IM UTD active Not Available Not Available No t Available Fluarix Quad 3047-2195 (PF) 60 mcg (15 mcg x 4)/0.5 mL IM syringe TO BE ADMINIST ERED BY PHARMACI ST FOR IMMUNIZA TION 04/29 completed Not Available Not Available Not Available Shingrix (PF) 50 mcg/0.5 mL intramusc ular suspensio n, kit ADM 0.5ML IM UTD 02/16 completed Not Available Not Available Not Available Humira(CF ) Pen 40 mg/0.4 mL subcutane ous kit 05/01 completed Not Available Not Available Not Available Fluad 65yr up(PF)45 mcg(15 mcgx3)/0. 5 mL intramusc ular syringe ADM 0.5ML IM UTD 08/13 completed Not Available Not Available Not Available Paxlovid 300 mg (150 mg x 2)-100 mg tablets in a dose pack TK 2 NIRMATRE LVIR TS AND 1 RITONAVI R T TOGETHER PO BID FOR 5 DAYS 02/15 completed Not Available Not Available Not Available Vitals Date Recorded Body height Body mass index (BMI) Body weight Body temperature Heart rate Respiratory rate Oxygen saturation Systolic And Diastolic Provider Name and Address Organization Details Last Updated DateTime 5 165.1 cm 37.7 kg/m2 220058. 03 g 98.8 [degF] 80 /min 17 /min 97 % 132/80 mm[Hg] Stephanie Dejah [place] [facility] [employer] 5 11:13:30 Date Recorded Body height Body mass index (BMI) Body weight Body temperature Oxygen saturation Heart rate Systolic And Diastolic Provider Name and Address Organization Details Last Updated DateTime 5 165.1 cm 36.3 kg/m2 83073.1 4 g 97.4 [degF] 98 % 85 /min 128/86 mm[Hg] Hafsa Mcbride [facility] [employer] [facility] 5 10:56:35 Date Recorded Body height Body mass index (BMI) Body weight Body temperature Heart rate Oxygen saturation Systolic And Diastolic Provider Name and Address Organization Details Last Updated DateTime 5 165.1 cm 36.3 kg/m2 28528.1 4 g 97.4 [degF] 87 /min 97 % 124/84 mm[Hg] Hafsa Mcbride [facility] [employer] [facility] 5 11:55:05 Date Recorded Body height Body mass index (BMI) Body weight Body temperature Oxygen saturation Heart rate Respiratory rate Systolic And Diastolic Provider Name and Address Organization Details Last Updated DateTime 4 165.1 cm 37.9 kg/m2 098287. 06 g 98.3 [degF] 97 % 75 /min 16 /min 124/82 mm[Hg] Marzena Nguyễn RN [facility] [employer] [facility] 4 10:47:15 Date Recorded Body height Body mass index (BMI) Body weight Body temperature Oxygen saturation Heart rate Systolic And Diastolic Provider Name and Address Organization Details Last Updated DateTime 5 165.1 cm 35.2 kg/m2 10652.7 4 g 98 [degF] 99 % 81 /min 130/80 mm[Hg] Breanna Ramírez RN [place] [facility] [employer] 11:19:32 Social History Question Answer Notes LastModified by Organization Details LastModified Time Tobacco Smoking Status Never Smoker Stephanie Webster trista, [employer] 03/23/2023 10:12:06 Do You Have An Advance Directive? No [email or web address] Information not available 02/22/2025 Are You Blind Or Do You Have Difficulty Seeing? Yes Reading Glasses, Cataract Surgery W/special Lense Put In Eye [email or web address] Information not available 02/22/2025 Is Blood Transfusion Acceptable In An Emergency? Yes [email or web address] Information not available 02/22/2025 What Is Your Level Of Caffeine Consumption? Occasional 2 Cups Of Coffee/day [email or web address] Information not available 02/22/2025 What Is Your Code Status? Full Code [email or web address] Information not available 02/22/2025 In The 14 Days Before Symptom Onset, Have You Had Close Contact With A Laboratory-confi rmed COVID-19 While That Case Was Ill? No [email or web address] Information not available 02/22/2025 In The 14 Days Before Symptom Onset, Have You Had Close Contact With A Person Who Is Under Investigation For COVID-19 While That Person Was Ill? No [email or web address] Information not available 02/22/2025 Are You Deaf Or Do You Have Serious Difficulty Hearing? No [email or web address] Information not available 02/22/2025 What Type Of Diet Are You Following? REGULAR Follow Low Salt W/ [email or web address] Information not available 02/22/2025 What Is The Highest Grade Or Level Of School You Have Completed Or The Highest Degree You Have Received? [id number] Information not available 02/22/2025 Have There Been Any Changes To Your Family Or Social Situation? No Information not available 02/22/2025 What Is The Fluoride Status Of Your Home? Unknown [email or web address] Information not available 02/22/2025 Are There Any Guns Present In Your Home? No [email or web address] Information not available 02/22/2025 Do You Use Insect Repellent Routinely? Yes [email or web address] Information not available 02/22/2025 Where [facility] You Live? [facility] [email or web address] Information not available 02/22/2025 Presence Of Domestic Violence No [email or web address] Information not available 02/22/2025 Guns Present In The Home? No [email or web address] Information not available 02/22/2025 Are You Able To Care For Yourself? Yes Information not available 02/22/2025 Are You Blind Or Do Yo Have Difficulty Seeing? No [email or web address] Information not available 02/22/2025 Are You Deaf Or Do You Have Serious Difficulty Hearing? No [email or web address] Information not available 02/22/2025 General Stress Level? Moderate [email or web address] Information not available 02/22/2025 Live Alone Of With Others? With Others Information not available 02/22/2025 Do You Have A Medical Power Of [employer]? No [email or web address] Information not available 02/22/2025 What Was The Date Of Your Most Recent Tobacco Screening? 02/16/2024 Information not available 02/16/2024 How Many Children Do You Have? 2 [email or web address] Information not available 02/22/2025 Do You Have Any Pets? Yes One Dog [email or web address] Information not available 02/22/2025 What Is Your Relationship Status? [id number] Information not available 08/25/2022 Do You Use Your Seat Belt Or Car Seat Routinely? Yes [email or web address] Information not available 02/22/2025 Do You Have Smoke And Carbon Monoxide Detectors In Your Home? Yes [email or web address] Information not available 02/22/2025 Are You Passively Exposed To Smoke? No [email or web address] Information not available 02/22/2025 Are There Any Smokers In Your House? Yes Vaping [email or web address] Information not available 02/22/2025 Do You Participate In Social Media? Yes [email or web address] Information not available 02/22/2025 What Types Of Sporting Activities Do You Participate In? Walking [email or web address] Information not available 02/22/2025 Do You Use Sunscreen Routinely? Yes [email or web address] Information not available 02/22/2025 Have You Recently Traveled Abroad? No [email or web address] Information not available 02/22/2025 Do You Have Difficulty Walking Or Climbing Stairs? No [email or web address] Information not available 02/22/2025 Are You Currently In School? No [email or web address] Information not available 02/22/2025 Do You Have Any Dietary Restrictions? No [email or web address] Information not available 02/22/2025 Sex: Female Functional Status Question Answer Note LastModified by Organizat ion Details LastModified Time Do you use any illicit or recreational drugs? No [email or web address] Information not available 02/22/2025 Do you or have you ever used any other forms of tobacco or nicotine? No [email or web address] Information not available 02/22/2025 What is your level of alcohol consumption? None [email or web address] Information not available 02/22/2025 Are you currently employed? No Retired [email or web address] Information not available 02/22/2025 Do you have transportation difficulties? No [email or web address] Information not available 02/22/2025 Are you able to walk independently without assistance or assistive devices? YESWOREST [email or web address] Information not available 02/22/2025 Do you have difficulty doing errands alone? No Information not available 02/22/2025 Are you able to care for yourself independently? 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 No [email or web address] Information not available 02/22/2025 Mental Status Question Answer Note LastModified by Organizat ion Details LastModified Time Do you feel stressed (tense, restless, nervous, or anxious, or unable to sleep at night)? [id number] [email or web address] Information not available 02/22/2025 Do you have difficulty concentrating, remembering or making decisions? Yes only w/ high stress [email or web address] Information not available 02/22/2025 Family History Relationship Description Onset Age of this Age Resolved Age Notes LastModified by Organization Details LastModified Time Paternal Aunt Alzheimer's disease [id number] Not available 08/25/2022 06:08:24 Paternal Aunt Malignant neoplasm of breast [id number] Not available 08/25/2022 06:08:24 Father Alcoholism [id number] Not available 08/25/2022 06:08:24 Mother Malignant neoplasm of ovary [id number] Not available 08/25/2022 06:08:24 Medical History Condition Response ARTHRITIS Y ULCERS Y HEADACHES/MIGRAINES Y ANXIETY DISORDER Y ANEMIA/BLOOD DISORDER Y BRONCHITIS Y ALLERGIES/HAYFEVER Y URINARY/BLADDER/KIDNEY PROBLEMS Y DEPRESSION (INCLUDING POST ) Y HEARTBURN / REFLUX Y Gynecological HistoryNo gynecological history recorded. Obstetrics History GPAL:G 0 P 0 0 0 0 Immunizations Vaccine Type Date Status Note Provider Nam e and Address Organization Details Recorded Time Influenza, high-dose, quadrivalent, PF 3 completed Rachid Messina MD [address] [place] [address], [place], [address], [facility] [employer] 03/23/2023 19:33:35 Influenza, split virus, quadrivalent, preservative 6 completed Not Available Counts include 234 beds at the [facility] 08/25/2022 06:20:14 Influenza, split virus, quadrivalent, preservative 0 completed Not Available Counts include 234 beds at the [facility] 08/25/2022 06:20:14 pneumococcal polysaccharide PPV23 0 completed Not Available Counts include 234 beds at the [facility] 08/25/2022 06:20:14 Influenza, split virus, quadrivalent, preservative 9 completed Not Available Counts include 234 beds at the [facility] 08/25/2022 06:20:14 Pneumococcal conjugate PCV 13 9 completed Not Available Counts include 234 beds at the [facility] 08/25/2022 06:20:14 Influenza, split virus, quadrivalent, preservative 8 completed Not Available Counts include 234 beds at the [facility] 08/25/2022 06:20:14 Influenza, split virus, quadrivalent, preservative 7 completed Not Available Counts include 234 beds at the [facility] 08/25/2022 06:20:15 Influenza, split virus, trivalent, preservative 5 completed Not Available [facility] 08/25/2022 06:20:15 Influenza, split virus, trivalent, preservative 4 completed Not Available [facility] 08/25/2022 06:20:15 Influenza, split virus, trivalent, preservative 4 completed Not Available Counts include 234 beds at the [facility] 08/25/2022 06:20:15 Pneumococcal Conjugate, unspecified formulation 2 completed Not Available [facility] 08/25/2022 06:20:15 Pneumococcal conjugate PCV 13 9 completed Not Available Counts include 234 beds at the [facility] 08/25/2022 06:20:15 Tdap 7 completed Not Available Counts include 234 beds at the [facility] 08/25/2022 06:20:15 Past Encounters Encounter ID Performer Location Encounter Start Date Encounter Closed Date Diagnosis/Indication Diagnosis SNOMED-CT Code Diagnosis ICD10 Code Diagnosis IMO Codes Diagnosis Note [id number] Rachid Messina MD [facility] Jose antony [address] [place] [address] [place] [address] 02/16/2021 00:00:00 02/16/2021 09:20:11 [id number] [facility] Koby arpan [address] [place] [address] [place] [address] 09/03/2021 00:00:00 09/03/2021 09:41:39 [id number] [facility] Koby arpan [address] [place] [address] [place] [address] 03/25/2022 00:00:00 03/25/2022 10:47:29 [id number] Rachid Messina MD [facility] Jose antony [address] [place] [address] [place] [address] 08/03/2022 00:00:00 08/04/2022 06:25:58 [id number] Rachid Messina MD [facility] Jose antony [address] [place] [address] [place] [address] 11/23/2022 10:18:23 11/23/2022 10:53:32 Adult health examination 152775843 Z00.00 Screening for disorder 708211787 Z13.9 Hypertriglyceridemia 302 881699 E78.1 Mixed anxi ety and depressive disorder 604843867 F41.8 [id number] Rachid Messina MD [facility] Jose llaugustin [facility] [address] 12/21/2022 10:14:35 12/21/2022 10:43:58 Impaired fasting glycemia 815181065 R73.01 A1C is 5.7% Watch carbs in diet. Mixed anxi ety and depressive disorder 745874214 F41.8 Continue fluoxetine f/u in 3 months Acid reflux 755420006 K2 1.9 Will increase omeprazole to 40 mg [id number] Rachid Messina MD [facility] Jose llaugustin [address] [place] [address] [place] [address] 03/23/2023 10:10:26 03/23/2023 10:45:37 Mixed anxiety and depressive disorder 139116363 F41.8 Continue fluoxetine f/u in 6 months Administra tion of influenza vaccine 72175437 Z23 [id number] Rachid Messina MD [facility] Jose llaugustin [address] [place] [address] [place] [address] 05/18/2023 11:27:12 05/18/2023 12:07:22 Sinusitis 26713061 J32.9 Acute righ t otitis media 602479309 H66.91 Allergic rhinitis 183232 04 J30.9 [id number] Ancelmo Wilkerson MD [facility] Jose llaugustin [address] [place] [address] [place] [address] 02/16/2024 10:16:11 02/16/2024 11:01:40 Adult health examination 317839510 Z00.00 Screening for disorder 789327299 Z13.9 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 Allergic rhinitis 495674 04 J30.9 Screening mammography 24 [id number] Z12.31 Sinusitis [id number] J32.9 Stricture of esophagus 00897535 K22.2 Hyperlipidemia 63659697 E78.5 Impaired f asting glycemia 354486911 R73.01 Rheumatoid arthritis 698 82495 M06.9 Vitamin D deficiency 347 37885 E55.9 Acid reflux 470728771 K2 1.9 [id number] Ancelmo Wilkerson MD [address] [address] 08/27/2024 10:57:12 08/27/2024 11:48:23 Argueta's esophagus 804562106 K22.70 Hyperlipidemia 28715641 E78.5 Impaired f asting glycemia 804141064 R73.01 Mixed anxi ety and depressive disorder 736404632 F41.8 Rheumatoid arthritis 698 36786 M06.9 Stricture of esophagus 78384354 K22.2 Varicose v eins of lower extremity 29347644 I83.93 Vitamin D deficiency 347 92727 E55.9 [id number] Ancelmo Wilkerson MD [address] [address] 09/21/2024 10:39:29 09/21/2024 12:17:52 Nausea 385611835 R11.0 Colitis 48570309 K52.9 Left flank pain 63391043 9 R10.9 [id number] Ancelmo Wilkerson MD [address] [address] 11/06/2024 11:35:46 11/06/2024 12:11:00 Sinusitis 67219052 J32.9 2431367 Allergic rhinitis 441385 04 J30.9 Argueta's esophagus 3029 20225 K22.70 Hyperlipidemia 81943888 E78.5 Mixed anxi ety and depressive disorder 161634423 F41.8 Rheumatoid arthritis 698 21810 M06.9 Vitamin D deficiency 347 54663 E55.9 [id number] Ancelmo Wilkerson MD [address] [address] 02/22/2025 11:03:44 02/22/2025 14:09:26 Screening mammography 56949802 Z12.31 [id number] Does annually at [facility] Hyperlipidemia 05387795 E78.5 Well controlled , will check labs as listed below Vitamin D deficiency 347 92480 E55.9 Chronic Diabetes m ellitus screening 922629474 Z13.1 789222 Will check labs as below Thyroid di sorder screening 684852005 Z13.29 526462 Viral uppe r respiratory tract infection 996859328 J06.9 246256 Advised to manage with Mucinex DM, Zyrtec, Vitamin C, and Zinc. Increase water intake Health Concerns Section Related Observation LastModified by Organization Detai ls LastModified Time None Recorded Concern Status LastModified by Organization Details LastModified Time None Recorded Advance Directives Directive N: Payers Insurance Date Sequence Insurance Name Policy Number Policy Shaw Covered Member ID Shaw Member ID Guarantor Name 02/22/2025 [facility] Betzy S Obear [employer] Betzy S Obear 05/27/2025 1 [place] Betzy S O'Bear [id number] Betzy S Obear 05/27/2025 2 [employer] [place] (MEDICARE SUPPLEMENT) Betzy S Obear [id number] Betzy S Obear Notes Date Note Type Note Provider Name and Address Organization Details Recorded Time 02/16/2024 text/html ROS as noted in the HPI sinus drainage 2 days , covid neg . DEONNA Hope [address], [address], [place], [address], [employer] 02/23/2024 12:57:40 08/27/2024 text/html ROS as noted in the HPI no changes DEONNA Hope [address], [address], [place], [address], [employer] 09/01/2024 16:38:17 09/21/2024 text/html ROS as noted in the HPI dc omeprazole for 4 weeks started on pantoprazole 40 mg at bedtime . left lower quad pain . hosp thought it might be a kidney infection DEONNA Hope [address], [place], [address], [facility] 09/24/2024 18:06:54 11/06/2024 text/html ROS as noted in the HPI sinus pressure 2 weeks , no fever DEONNA Hope [address], [place], [address], [facility] 11/08/2024 15:25:32 02/22/2025 text/html Michela Townsend is a 69 year old female patient here today to establish care. She was previously under the care of Josef Avelar She has concerns today of sinus drainage, congestion, scratchy throat. Denies fevers. This began yesterday. She has rheumatoid arthritis, she is seeing a incident response coordinator for this. She receives Simponi IV infusions every 8 weeks and takes methotrexate. She has hyperlipidemia. She is taking ezetimibe 10 mg and simvastatin 20 mg every day. She declines muscle cramping. She has a history of mixed anxiety and depressive disorder. She is taking fluoxetine 60 mg daily. Flu shot: will do in the fallCOVID vaccines: x5 or 6Tdap: 2017Pneumococcal completeShingrix completedMammogram: orderedPAP: does not want to do anymoreDEXA: 02/26/2025olonoscopy: 2020 RADHA Styles [address], [place], [address], [employer] 02/22/2025 14:03:23 OBGyn Episode No OBEpisode recorded.
[2025-05-27] MEDS: TETANUS,DIPHTHERIA,AC PERTUSSIS ADULT (0.5 ML) BOOSTRIX IM (17:09)
--- NOTE | 2025-05-27 19:22 | ED.WOUNDLAC ---
HPI - Wound/Laceration General Chief Complaint: Wound/Laceration Stated Complaint: Charis agosto lac Time Seen by Provider: 05/27/25 15:49 History of Present Illness HPI narrative: Patient here after slamming her finger in the trunk of her car, her right thumb is painful and throbbing. Unsure of last tetanus Related Data Home Medications ?Medication ?Instructions ?Recorded ?Confirmed ?Last Taken ?Type folic acid 1 mg tablet 1 mg PO DAILY 08/24/22 04/11/24 1 Day Ago History ~04/10/24 simvastatin 20 mg tablet 20 mg PO DAILY 08/24/22 04/11/24 1 Day Ago History ~04/10/24 calcium carbonate 260 mg PO DAILY 03/21/24 04/11/24 1 Day Ago History ~04/10/24 fluoxetine 40 mg capsule (Prozac) 20 mg PO TID 03/21/24 04/11/24 1 Day Ago History ~04/10/24 golimumab 12.5 mg/mL intravenous See Rx Instructions .Route .COMPLEX 03/21/24 04/11/24 1 Day Ago History solution (Simponi ARIA) ~04/10/24 lactobacillus combination no.9 4 4,000 mmu cells PO DAILY 03/21/24 04/11/24 1 Day Ago History billion cell capsule (Adult 50 ~04/10/24 Plus Probiotic) multivitamin 1 tablet PO DAILY 03/21/24 04/11/24 1 Day Ago History ~04/10/24 omeprazole 20 mg capsule,delayed 40 mg PO DAILY 03/21/24 04/11/24 1 Day Ago History release ~04/10/24 Held on 09/17/24. Instructions: Resume on 10/08/24. Allergies Allergy/AdvReac Type Severity Reaction Status Date / Time Sulfa (Sulfonamide Allergy Unknown Hives Verified 09/17/24 12:54 Antibiotics) diphenhydramine (From Allergy Hives Verified 09/17/24 12:54 Benadryl) Review of Systems Review of Systems: All systems reviewed & are unremarkable except as noted in HPI and below PMFSH Past Medical History Medical History Chronic GERD Hyperlipidemia Obesity Social History Social History Smoking status: Never smoker Second hand tobacco smoke exposure: No Alcohol intake: current Substance use: never Substance use type: does not use Living arrangements: with family Spiritual care concerns: No Exam Narrative: EXAMINATION OF ORGAN SYSTEMS/BODY AREAS: Constitutional: Vital signs per nursing GENERAL:[No acute distress, non-toxic appearing.] HEAD: Normal with no signs of head trauma. EYES: EOMI, conjunctiva normal ENT: Hearing grossly intact LUNGS: Nonlabored breathing. HEART: [Regular rate and rhythm] ABD: [Soft], [nontender to palpation] EXT: Normal range of motion SKIN: Swelling and bruising to right thumb, laceration on side NEURO: [Alert and oriented x 3. No gross focal sensory or strength deficits.] PSYCH: Normal affect Course Vital Signs Vital signs: Vital Signs Temperature 97.5 F L 05/27/25 13:39 Pulse Rate 72 05/27/25 13:39 Respiratory Rate 16 05/27/25 13:39 Blood Pressure 135/56 L 05/27/25 13:39 Pulse Oximetry 100 05/27/25 13:39 Oxygen Delivery Room Air 05/27/25 13:39 Temperature 97.5 F L 05/27/25 13:39 Pulse Rate 72 05/27/25 13:39 Respiratory Rate 16 05/27/25 13:39 Blood Pressure 135/56 L 05/27/25 13:39 Pulse Oximetry 100 05/27/25 13:39 Oxygen Delivery Room Air 05/27/25 13:39 Procedures Laceration Laceration 1: Date: 05/27/25 Time: 16:00 Site: hand Side (If applicable): right Size (cm): 1 Description: linear Depth: simple, single layer Local Anesthetic: bupivacaine 0.5% Amount of anesthesia used (mL): 1 Pre-repair: wound explored, irrigated and deep structures intact ====== Skin Level ====== Skin layer closed with: vicryl Size (cm): 4-0 Number of sutures: 1 Technique: simple, interrupted ====== Subcutaneous Layer ====== ====== Muscle Layer ====== ====== Tendon Layer ====== MDM MDM Narrative Medical decision making narrative: Patient here after slamming her finger in the car trunk, on exam right thumb is bruised, with small laceration, gaping with some fat exposed. Verbal consent obtained for laceration repair, 1 suture placed after digital block with bupivacaine, patient tolerated this very well. X-rays negative for acute fracture. Stable for discharge with return precautions Differential Diagnosis Differential Diagnosis: Fracture, laceration Discharge Plan Discharge Clinical Impression: Laceration, Crush injury to thumb Patient Disposition: Home Condition: Stable Instructions: Laceration (ED) Additional Instructions: You can follow up with your PCP and come back to the ER for any further issues. Patient Language: Sinhala Prescriptions: No Action calcium carbonate 260 mg calcium (648 mg) tablet 260 mg PO DAILY Simponi ARIA 12.5 mg/mL solution See Rx Instructions .ROUTE .COMPLEX Rx Instructions: 12.5 intravenously every 8 weeks multivitamin Tablet 1 tablet PO DAILY Adult 50 Plus Probiotic 4 billion cell capsule 4,000 mmu cells PO DAILY Rx Instructions: administer with a meal pantoprazole 40 mg tablet,delayed release (DR/EC) 40 mg PO HS 28 Days Qty: 28 0RF simvastatin 20 mg tablet 20 mg PO DAILY folic acid 1 mg tablet 1 mg PO DAILY fluoxetine [Prozac] 40 mg capsule 20 mg PO TID omeprazole 20 mg capsule,delayed release(DR/EC) 40 mg PO DAILY Follow-up/Referrals: Valentino,DEONNA Novak [Primary Care Provider, Family Practice]
== END 2025-05-27 17:15 | disposition home or self-care (01) ==
PROVIDERS: Emergency Provider Emergency Medicine; PCP Physician Assistant
DX: S67.01XA Crushing injury of right thumb, initial encounter (principal); K21.9 Gastro-esophageal reflux disease without esophagitis; E78.5 Hyperlipidemia, unspecified; Z23 Encounter for immunization; W23.0XXA Caught, crushed, jammed, or pinched between moving objects, initial encounter
CPT/HCPCS: 12001; 73140; 90471; 90715; 99283